=== PATIENT | female | born 1950 | race Caucasian/White ===

== ENCOUNTER → 2016-11-10 | Outpatient (CLI) | payer MEDICARE, OTHER ==
[~2016-11-10] VITALS: Ht 165.1 cm; Wt 90.7 kg
[~2016-11-10] MED LIST: ACET65TA OR; ACTO30TA OR; ALDA25TA2 PO; AMLO10TA PO; AMLO5TAB2 PO; ASPI81TAEC PO; ATOR40TA PO; GLIM1TAB OR; HUMA75VL SC; INSUHUMDS SC; JANU100T PO; K-TA10TA2 PO; LEVO100T5 PO; LIDOCAINE 2% INJ 100 MG/5 ML SDV (FOR ANES.) As Ordered ONE; LISI20TA5 OR; LISI40TAB PO; MACR100C3 PO; MAG400TA PO; MULT1TAB18 PO; NS 1,000 ML IV SCH; NYST10PW TOP; OMEP10CASR PO; PRIL20CA OR; PROPOFOL 200 MG/20 ML VIAL As Ordered ONE; SERT-141 PO; TYLE325T5 PO; VALS1TAB46 PO; VYTO10TA5 OR; [UNRECOGNIZED DRUG - CODE] PO; [UNRECOGNIZED DRUG - OTHER] PO
--- NOTE | 2016-11-10 11:05 | ROOR ---
Patient Name: Sara Torre Procedure Date: 11/10/2016 10:40 AM Date of : 1950 Age: 66 Room: [facility] Gender: Female Note Status: Finalized Procedure: Colonoscopy Indications: High risk colon cancer surveillance: Personal history of colonic polyps, Last colonoscopy: July 2013, Family history (father) of colon cancer >60. Providers: Daquan PIKE MD Referring MD: Nataly Jernigan DO Requesting Provider: Medicines: Monitored Anesthesia Care Complications: No immediate complications. Procedure: Pre-Anesthesia Assessment: - The heart rate, respiratory rate, oxygen saturations, blood pressure, adequacy of pulmonary ventilation, and response to care were monitored throughout the procedure. The Colonoscope was introduced through the anus and advanced to the cecum, identified by appendiceal orifice and ileocecal valve. The colonoscopy was performed without difficulty. The patient tolerated the procedure well. The quality of the bowel preparation was fair. Findings: The perianal and digital rectal examinations were normal. (EXAM: Complete, PREP: Fair/Adequate) Two sessile polyps were found in the sigmoid colon. The polyps were diminutive in size. These polyps were removed with a cold snare. Resection and retrieval were complete. Small Internal Hemorrhoids. A tattoo was seen in the distal rectum. The tattoo site appeared normal. Impression: - Preparation of the colon was fair. - Two diminutive polyps in the sigmoid colon, removed with a cold snare. Resected and retrieved. - Small Internal Hemorrhoids. Moderate external hemorrhopids. - A tattoo was seen in the distal rectum. The tattoo site appeared normal. Recommendation: - Repeat colonoscopy in 5 years for surveillance. Daquan Pike MD Daquan PIKE MD 11/10/2016 11:05:32 AM This report has been signed electronically. Number of Addenda: 0 Note Initiated On: 11/10/2016 10:40 AM Estimated Blood Loss: Estimated blood loss: none.
[2016-11-10 11:25] VITALS: BP 160/85
== END ==
LOC: M OPP 08:25
PROVIDERS: ATTEND Internal Medicine Gastroenterology
DX: Z12.11 Encounter for screening for malignant neoplasm of colon (principal); Z86.010 Personal history of colon polyps; Z80.0 Family history of malignant neoplasm of digestive organs; D12.5 Benign neoplasm of sigmoid colon; K64.9 Unspecified hemorrhoids; I10 Essential (primary) hypertension; E11.9 Type 2 diabetes mellitus without complications; M19.90 Unspecified osteoarthritis, unspecified site; R01.1 Cardiac murmur, unspecified; Z79.82 Long term (current) use of aspirin; Z79.899 Other long term (current) drug therapy; Z88.0 Allergy status to penicillin; Z88.6 Allergy status to analgesic agent

== ENCOUNTER → 2017-11-23 | Outpatient (CLI) | payer MEDICARE, OTHER ==
[2017-11-23 11:21] LABS: HEMATOCRIT 40.4 % (36.0-47.0); HEMOGLOBIN 13.4 g/dl (12.0-16.0); MEAN CORPUSCULAR HEMOGLOBIN 31.2 pg (27.0-33.0); MEAN CORPUSCULAR HGB CONC 33.2 g/dl (32.0-36.5); MEAN CORPUSCULAR VOLUME 94.2 fl (80.0-96.0); PLATELET COUNT, AUTOMATED 306 10^3/uL (150-450); RED BLOOD COUNT 4.29 10^6/uL (4.00-5.40); RED CELL DISTRIBUTION WIDTH 13.1 % (11.5-14.5)
[2017-11-23 11:22] LABS: APPEARANCE, URINE HAZY (CLEAR); BACTERIA, URINE AUTO 1+ (NEGATIVE); BILIRUBIN, URINE AUTO NEGATIVE (NEGATIVE); BLOOD, URINE BLOOD NEGATIVE (NEGATIVE); COLOR, URINE YELLOW (YELLOW); GLUCOSE, URINE (UA) AUTO 3+ mg/dL (NEGATIVE); KETONE, URINE AUTO NEGATIVE (NEGATIVE); LEUKOCYTE ESTERASE, URINE AUTO 3+ (NEGATIVE); MUCUS, URINE SMALL (NEGATIVE); NITRITE, URINE AUTO NEGATIVE (NEGATIVE); PROTEIN, URINE AUTO NEGATIVE (NEGATIVE); RBC, URINE AUTO 14 /HPF (0-3); SPECIFIC GRAVITY URINE AUTO 1.021 (1.002-1.035); SQUAMOUS EPITHELIAL CELL UR AU 3 /HPF (0-6); UROBILINOGEN, URINE AUTO 0.2 mg/dL (0.0-2.0); WBC, URINE AUTO 43 /HPF (0-3)
[2017-11-23 11:38] LABS: INR 1.05; PROTHROMBIN TIME 13.8 SECONDS (12.4-14.5)
[2017-11-23 11:42] LABS: ALBUMIN 4.1 GM/DL (3.2-5.2); ALBUMIN/GLOBULIN RATIO 1.21 (1.00-1.93); ALKALINE PHOSPHATASE 115 U/L (45-117); ALT/SGPT 24 U/L (12-78); ANION GAP 6 MEQ/L (8-16); AST/SGOT 13 U/L (7-37); BILIRUBIN,TOTAL 0.7 MG/DL (0.2-1.0); BLOOD UREA NITROGEN 16 MG/DL (7-18); CARBON DIOXIDE LEVEL 31 MEQ/L (21-32); CHLORIDE LEVEL 104 MEQ/L (98-107); CREATININE FOR GFR 0.82 MG/DL (0.55-1.30); GLOMERULAR FILTRATION RATE > 60.0 (>45); GLUCOSE, FASTING 260 MG/DL (70-100); POTASSIUM SERUM 4.7 MEQ/L (3.5-5.1); SODIUM LEVEL 141 MEQ/L (136-145); TOTAL PROTEIN 7.5 GM/DL (6.4-8.2)
[2017-11-23 11:56] LABS: ERYTHROCYTE SEDIMENTATION RATE 34 mm/hr (0-30)
== END ==
LOC: M ADMPAT 09:44
DX: Z01.818 Encounter for other preprocedural examination (principal); M16.11 Unilateral primary osteoarthritis, right hip; I10 Essential (primary) hypertension; E78.00 Pure hypercholesterolemia, unspecified; K21.9 Gastro-esophageal reflux disease without esophagitis; E03.9 Hypothyroidism, unspecified; Z79.899 Other long term (current) drug therapy; Z79.01 Long term (current) use of anticoagulants
CPT/HCPCS: 71046

== ENCOUNTER → 2017-11-27 | Outpatient (REF) | payer MEDICARE, OTHER ==
[2017-11-27 18:27] LABS: APPEARANCE, URINE HAZY (CLEAR); BACTERIA, URINE AUTO NEGATIVE (NEGATIVE); BILIRUBIN, URINE AUTO NEGATIVE (NEGATIVE); BLOOD, URINE BLOOD NEGATIVE (NEGATIVE); COLOR, URINE YELLOW (YELLOW); GLUCOSE, URINE (UA) AUTO 3+ mg/dL (NEGATIVE); KETONE, URINE AUTO NEGATIVE (NEGATIVE); LEUKOCYTE ESTERASE, URINE AUTO 1+ (NEGATIVE); MUCUS, URINE SMALL (NEGATIVE); NITRITE, URINE AUTO NEGATIVE (NEGATIVE); PROTEIN, URINE AUTO NEGATIVE (NEGATIVE); RBC, URINE AUTO 3 /HPF (0-3); SPECIFIC GRAVITY URINE AUTO 1.022 (1.002-1.035); SQUAMOUS EPITHELIAL CELL UR AU 1 /HPF (0-6); UROBILINOGEN, URINE AUTO 0.2 mg/dL (0.0-2.0); WBC, URINE AUTO 2 /HPF (0-3)
== END ==
LOC: M LAB REF 16:33
DX: N39.0 Urinary tract infection, site not specified (principal)
CPT/HCPCS: 81001

== ENCOUNTER → 2018-01-01 | Outpatient (REF) | payer MEDICARE, OTHER ==
[2018-01-01 11:57] LABS: INR 1.55
== END ==
LOC: M LABDRAW1 10:45
DX: Z79.01 Long term (current) use of anticoagulants (principal)
CPT/HCPCS: 85610

== ENCOUNTER → 2018-01-04 | Outpatient (REF) | payer MEDICARE, OTHER ==
[2018-01-04 14:37] LABS: INR 1.89; PROTHROMBIN TIME 22.3 SECONDS (12.4-14.5)
== END ==
LOC: M LABDRAW1 11:42
DX: Z79.01 Long term (current) use of anticoagulants (principal); Z47.89 Encounter for other orthopedic aftercare
CPT/HCPCS: 85610

== ENCOUNTER → 2018-01-07 | Outpatient (REF) | payer MEDICARE, OTHER ==
[2018-01-07 12:58] LABS: INR 1.74; PROTHROMBIN TIME 20.9 SECONDS (12.4-14.5)
== END ==
LOC: M LAB REF 12:29
DX: Z47.89 Encounter for other orthopedic aftercare (principal); Z79.01 Long term (current) use of anticoagulants
CPT/HCPCS: 85610

== ENCOUNTER → 2018-01-11 | Outpatient (REF) | payer MEDICARE, OTHER ==
[2018-01-11 12:15] LABS: INR 1.64; PROTHROMBIN TIME 19.9 SECONDS (12.4-14.5)
== END ==
LOC: M SHH 11:46
DX: Z79.01 Long term (current) use of anticoagulants (principal); Z47.89 Encounter for other orthopedic aftercare
CPT/HCPCS: 85610

== ENCOUNTER 2018-06-03 09:01 | Day surgery (SDC) | payer MEDICARE, OTHER ==
[~2018-06-03 09:01] MED LIST changes: -ACET65TA OR; -ACTO30TA OR; -ALDA25TA2 PO; -AMLO10TA PO; -AMLO5TAB2 PO; -ASPI81TAEC PO; -ATOR40TA PO; -GLIM1TAB OR; -HUMA75VL SC; -INSUHUMDS SC; -JANU100T PO; -K-TA10TA2 PO; -LEVO100T5 PO; -LIDOCAINE 2% INJ 100 MG/5 ML SDV (FOR ANES.) As Ordered ONE; -LISI20TA5 OR; -LISI40TAB PO; -MACR100C3 PO; -MAG400TA PO; +MIDAZOLAM INJ 2 MG/2 ML VIAL (J2250) As Ordered; -MULT1TAB18 PO; -NS 1,000 ML IV SCH; -NYST10PW TOP; -OMEP10CASR PO; +ONDANSETRON 4MG/2ML VIAL (J2405) As Ordered; -PRIL20CA OR; -PROPOFOL 200 MG/20 ML VIAL As Ordered ONE; -SERT-141 PO; -TYLE325T5 PO; -VALS1TAB46 PO; -VYTO10TA5 OR; -[UNRECOGNIZED DRUG - CODE] PO; -[UNRECOGNIZED DRUG - OTHER] PO; +fentaNYL 100 MCG/2 ML INJECTION (J3010) As Ordered
[2018-06-03] MEDS: PROPARACAINE 0.5% OPHTH SOL 15ML OS (09:55)
[2018-06-03] MEDS: OFLOXACIN 0.3 % (OCUFLOX) OPTH SOL 5ML OS (09:56)
[2018-06-03] MEDS: TROPICAMIDE 1% OPHTH SOLN 2ML OS (09:58)
[2018-06-03] MEDS: PHENYLEPHRINE 2.5% OPHTH SOL 2ML OS (10:00)
[2018-06-03 10:08] LABS: BEDSIDE GLUCOSE 198 MG/DL (80-115)
[2018-06-03] MEDS: POVIDONE-IODINE 5% OPHTH PREP SOL 30ML As Ordered (10:51)
[2018-06-03] MEDS: BALANCED SALT IRRIGATION SOLUTION 500ML BAG (FOR OR EYE MACHINE) As Ordered (10:56)
[2018-06-03] MEDS: DUOVISC (0.50ML VISCOAT/0.55ML PROVISC) OPHTH KIT As Ordered (11:00)
[2018-06-03] MEDS: LIDOCAINE 0.75%/EPINEPHRINE 0.025% IN BSS 1ML SYR INTRACAMERAL (OR ONLY) As Ordered (11:01)
== END 2018-06-03 11:52 | disposition home or self-care (01) ==
LOC: M SDC 09:01
DX: H25.12 Age-related nuclear cataract, left eye (principal); I10 Essential (primary) hypertension; E78.5 Hyperlipidemia, unspecified; R01.1 Cardiac murmur, unspecified; E10.9 Type 1 diabetes mellitus without complications; E03.9 Hypothyroidism, unspecified; K44.9 Diaphragmatic hernia without obstruction or gangrene; K21.9 Gastro-esophageal reflux disease without esophagitis; K63.5 Polyp of colon; M12.9 Arthropathy, unspecified; R21 Rash and other nonspecific skin eruption; R32 Unspecified urinary incontinence; Z88.0 Allergy status to penicillin; Z88.6 Allergy status to analgesic agent; Z91.013 Allergy to seafood; Z79.899 Other long term (current) drug therapy; Z79.4 Long term (current) use of insulin; Z96.641 Presence of right artificial hip joint; Z78.0 Asymptomatic menopausal state
CPT/HCPCS: 66984

== ENCOUNTER 2018-08-12 07:58 | Day surgery (SDC) | payer MEDICARE, OTHER ==
[~2018-08-12 07:58] MED LIST changes: -ONDANSETRON 4MG/2ML VIAL (J2405) As Ordered
[2018-08-12] MEDS: PHENYLEPHRINE 2.5% OPHTH SOL 2ML OD (09:15)
[2018-08-12] MEDS: TROPICAMIDE 1% OPHTH SOLN 2ML OD (09:15)
[2018-08-12] MEDS: PROPARACAINE 0.5% OPHTH SOL 15ML OD (09:15)
[2018-08-12] MEDS: OFLOXACIN 0.3 % (OCUFLOX) OPTH SOL 5ML OD (09:15)
[2018-08-12 09:41] LABS: BEDSIDE GLUCOSE 109 MG/DL (83-110)
[2018-08-12] MEDS: BALANCED SALT IRRIGATION SOLUTION 500ML BAG (FOR OR EYE MACHINE) As Ordered (10:29)
[2018-08-12] MEDS: POVIDONE-IODINE 5% OPHTH PREP SOL 30ML As Ordered (10:29)
[2018-08-12] MEDS: LIDOCAINE 0.75%/EPINEPHRINE 0.025% IN BSS 1ML SYR INTRACAMERAL (OR ONLY) As Ordered (10:29)
[2018-08-12] MEDS: DUOVISC (0.50ML VISCOAT/0.55ML PROVISC) OPHTH KIT As Ordered (10:29)
[2018-08-12] MEDS: CEFUROXIME 1MG/0.1ML INTRACAMERAL INJ As Ordered (10:30)
== END 2018-08-12 11:08 | disposition home or self-care (01) ==
LOC: M SDC 07:58
DX: H25.11 Age-related nuclear cataract, right eye (principal); Z88.0 Allergy status to penicillin; Z91.013 Allergy to seafood
CPT/HCPCS: 66984

== ENCOUNTER 2019-04-04 12:40 | Emergency (ER) | payer MEDICARE, OTHER ==
[~2019-04-04] VITALS: Ht 165.1 cm; Wt 103.2 kg
[~2019-04-04 12:40] MED LIST changes: +ACET65TA OR; +ACTO30TA OR; +ALDA25TA2 PO; +AMLO10TA PO; +AMLO5TAB6 PO; +ASPI81TAEC PO; +ATOR40TA75 PO; +COUM2.5T17 PO; +GLIM1TAB OR; +HUMA75VL SC; +INSUHUMDS SC; +JANU100T PO; +K-TA10TA2 PO; +LEVO100T5 PO; +LISI20TA5 OR; +LISI40TA52 PO; +LOSA25TA14 PO; +MACR100C43 PO; +MAG400TA PO; +MAGN400C2 PO; -MIDAZOLAM INJ 2 MG/2 ML VIAL (J2250) As Ordered; +MULT1TAB18 PO; +NYST-15 TOP; +OMEP10CASR PO; +PERC5TAB12 PO; +PRIL20CA OR; +SERT-141 PO; +TYLE1TAB5 PO; +TYLE325T5 PO; +VALS1TAB66 PO; +VYTO10TA5 OR; +[UNRECOGNIZED DRUG - CODE] PO; +[UNRECOGNIZED DRUG - OTHER] PO; -fentaNYL 100 MCG/2 ML INJECTION (J3010) As Ordered
[2019-04-04] MEDS ORDERED: FARX1TAB3 PO (12:58)
[2019-04-04] MEDS ORDERED: ASPI81TA85 PO (12:58)
[2019-04-04] MEDS ORDERED: CELE1CAP4 PO (12:59)
[2019-04-04] MEDS ORDERED: methylPREDNISolone INJ 125 MG/2 ML VIAL (J2930) As Ordered ONE (13:26)
[2019-04-04] MEDS ORDERED: diphenhydrAMINE INJ 50MG/ML VIAL (J1200) As Ordered ONE (13:26)
[2019-04-04] MEDS ORDERED: diphenhydrAMINE INJ 50MG/ML VIAL (J1200) IV ONE (13:30)
[2019-04-04] MEDS ORDERED: FAMOTIDINE IV BAG 20 MG in APPROPRIATE DILUENT 1 EA IV ONE (13:30)
[2019-04-04] MEDS ORDERED: methylPREDNISolone INJ 125 MG/2 ML VIAL (J2930) IV ONE (13:30)
[2019-04-04] MEDS ORDERED: PRED20TA PO (16:19)
[2019-04-04] MEDS ORDERED: BENA25CA4 PO (16:19)
[2019-04-04 16:30] VITALS: BP 149/70
== END 2019-04-04 16:44 | disposition home or self-care (01) ==
LOC: M ED 12:40
DX: R22.0 Localized swelling, mass and lump, head (principal); T78.3XXA Angioneurotic edema, initial encounter; X58.XXXA Exposure to other specified factors, initial encounter; Y92.89 Other specified places as the place of occurrence of the external cause; E11.9 Type 2 diabetes mellitus without complications; I10 Essential (primary) hypertension; E07.9 Disorder of thyroid, unspecified; K21.9 Gastro-esophageal reflux disease without esophagitis; Z79.899 Other long term (current) drug therapy; Z79.890 Hormone replacement therapy; Z79.82 Long term (current) use of aspirin; Z79.4 Long term (current) use of insulin; Z88.0 Allergy status to penicillin; Z88.8 Allergy status to other drugs, medicaments and biological substances; Z91.018 Allergy to other foods
CPT/HCPCS: 96374; 96375; 99284; J1200; J2930

== ENCOUNTER → 2019-04-07 | Outpatient (REF) | payer MEDICARE, OTHER ==
[~2019-04-07] MED LIST changes: +ASPI81TA85 PO; +BENA25CA4 PO; +CELE1CAP4 PO; +FARX1TAB3 PO; +PRED20TA PO
[2019-04-07 12:58] LABS: INR 1.11
[2019-04-07 12:59] LABS: PARTIAL THROMBOPLASTIN TIME 30.5 SECONDS (25.0-38.4)
== END ==
LOC: M LABDRAW1 10:42
PROVIDERS: ATTEND Physician Assistant
DX: Z01.812 Encounter for preprocedural laboratory examination (principal); Z79.82 Long term (current) use of aspirin; Z79.899 Other long term (current) drug therapy

== ENCOUNTER → 2019-04-08 | Outpatient (REF) | payer MEDICARE, OTHER ==
[2019-04-08 17:19] LABS: COMPLEMENT C4 27 MG/DL (10-40); RHEUMATOID FACTOR QUANT < 10.0 IU/ML (<15.0)
== END ==
LOC: M LABDRAW1 14:47
PROVIDERS: ATTEND Allergy & Immunology Allergy
DX: T78.3XXA Angioneurotic edema, initial encounter (principal)

== ENCOUNTER → 2019-07-22 | Outpatient (CLI) | payer MEDICARE, OTHER ==
--- NOTE | 2019-07-22 12:36 | REP ---
Low-dose lung screening CT of the chest: The study is performed without IV contrast. The images are presented at lung windowing only. There are no comparisons. There is a small subpleural 16 mm ground-glass density anteriorly in the left upper lobe on image 39. This is a category II lesion. There are no other nodules or masses. There are no infiltrates or pleural effusions. Impression: Category II low-dose lung screening CT of the chest. The probability of malignancy is less than 1%. Depending on risk factors consider annual follow-up low-dose lung screening chest CT. Electronically Signed by Gautam Coe MD 07/22/2019 12:28 P
== END ==
LOC: M RAD 10:06
PROVIDERS: ATTEND Student in an Organized Health Care Education/Training Program
DX: Z12.2 Encounter for screening for malignant neoplasm of respiratory organs (principal); Z87.891 Personal history of nicotine dependence

== ENCOUNTER → 2019-09-28 | Outpatient (CLI) | payer MEDICARE, OTHER ==
[2019-09-28 13:34] LABS: PLATELET COUNT, AUTOMATED 265 10^3/uL (150-450)
[2019-09-28 13:48] LABS: INR 1.06; PROTHROMBIN TIME 13.5 SECONDS (11.8-14.0)
[2019-09-28 13:49] LABS: PARTIAL THROMBOPLASTIN TIME 33.5 SECONDS (25.0-38.4)
== END ==
LOC: M PLALAB 09:57
PROVIDERS: ATTEND Student in an Organized Health Care Education/Training Program
DX: Z01.812 Encounter for preprocedural laboratory examination (principal); M53.3 Sacrococcygeal disorders, not elsewhere classified

== ENCOUNTER → 2019-09-28 | Outpatient (CLI) | payer MEDICARE, OTHER ==
--- NOTE | 2019-09-28 11:36 | REPMRS ---
Patient History The patient states she has not had a clinical breast exam in over a year. Family history of breast cancer at age 50 or over in mother, colorectal cancer at age 50 or over in father. Benign stereotatic breast biopsy of the right breast, November 24, 2011. Digital Woman Screen Mammo: September 28, 2019 - Exam #: [id number] Bilateral CC and MLO view(s) were taken. Technologist: Tamanna Swanson, Technologist Prior study comparison: January 31, 2015, bilateral digital mammo screening bilat, performed at [facility]. October 06, 2011, bilateral digital mammo screening bilat, performed at [facility]. FINDINGS: There are scattered fibroglandular densities. There has been no change in the appearance of the mammogram from the prior studies. There is a mild amount of scattered fibroglandular density which is fairly symmetric. There is no interval development of dominant mass, architectural distortion, or grouped microcalcification suggestive of malignancy. 3-D tomosynthesis shows no additional findings. Assessment: BI-RADS/ACR category 1 mammogram. Negative Mammogram. Recommendation Routine screening mammogram of both breasts in 1 year (for women over age 40). This patient's Lifetime Breast Cancer Risk is estimated at 14.4 %. This mammogram was interpreted with the aid of an FDA-approved computer-aided dectection system. Electronically Signed By: Warren Smith MD 09/28/19 [id number]
== END ==
LOC: M WHC 09:27
PROVIDERS: ATTEND Student in an Organized Health Care Education/Training Program
DX: Z01.812 Encounter for preprocedural laboratory examination (principal); Z12.31 Encounter for screening mammogram for malignant neoplasm of breast; Z80.3 Family history of malignant neoplasm of breast; Z80.0 Family history of malignant neoplasm of digestive organs; Z86.018 Personal history of other benign neoplasm; M53.3 Sacrococcygeal disorders, not elsewhere classified

== ENCOUNTER → 2019-11-15 | Outpatient (REF) | payer MEDICARE, OTHER ==
[2019-11-15 14:25] LABS: APPEARANCE, URINE CLEAR (CLEAR); BACTERIA, URINE AUTO NEGATIVE (NEGATIVE); BILIRUBIN, URINE AUTO NEGATIVE (NEGATIVE); BLOOD, URINE BLOOD NEGATIVE (NEGATIVE); COLOR, URINE YELLOW (YELLOW); GLUCOSE, URINE (UA) AUTO 3+ mg/dL (NEGATIVE); KETONE, URINE AUTO NEGATIVE (NEGATIVE); LEUKOCYTE ESTERASE, URINE AUTO NEGATIVE (NEGATIVE); MUCUS, URINE SMALL (NEGATIVE); NITRITE, URINE AUTO NEGATIVE (NEGATIVE); PROTEIN, URINE AUTO NEGATIVE (NEGATIVE); RBC, URINE AUTO 0 /HPF (0-3); SPECIFIC GRAVITY URINE AUTO 1.032 (1.002-1.035); SQUAMOUS EPITHELIAL CELL UR AU 0 /HPF (0-6); UROBILINOGEN, URINE AUTO 0.2 mg/dL (0.0-2.0); WBC, URINE AUTO 0 /HPF (0-3)
== END ==
LOC: M SFHCWAGY 12:51
PROVIDERS: ATTEND Obstetrics & Gynecology
DX: N39.41 Urge incontinence (principal); L90.0 Lichen sclerosus et atrophicus
CPT/HCPCS: 81001; 87086; G0463

== ENCOUNTER → 2021-02-13 | Outpatient (REF) | payer MEDICARE, OTHER ==
[~2021-02-13] MED LIST changes: +AMLO1TAB24 PO; -AMLO5TAB6 PO; +ASPI-569 PO; -ASPI81TA85 PO; +ASPI81TA86 PO; -ASPI81TAEC PO; -MAG400TA PO; +MAGN400T35 PO
[2021-02-13 16:48] LABS: PLATELET COUNT, AUTOMATED 260 10^3/uL (150-450)
[2021-02-13 16:58] LABS: INR 0.98; PROTHROMBIN TIME 13.2 SECONDS (12.5-14.3)
[2021-02-13 16:59] LABS: PARTIAL THROMBOPLASTIN TIME 31.6 SECONDS (24.2-38.5)
[2021-02-13 17:09] LABS: ERYTHROCYTE SEDIMENTATION RATE 28 mm/hr (0-30)
== END ==
LOC: M PLALAB 16:43
PROVIDERS: ATTEND Physical Medicine & Rehabilitation
DX: M51.36 Other intervertebral disc degeneration, lumbar region (principal); Z79.01 Long term (current) use of anticoagulants

== ENCOUNTER → 2021-03-19 | Outpatient (REF) | payer MEDICARE, OTHER | LOC: M SFHCPLAZ 12:11 | PROVIDERS: ATTEND Family Medicine | DX: E03.9 Hypothyroidism, unspecified (principal); E11.9 Type 2 diabetes mellitus without complications; I11.9 Hypertensive heart disease without heart failure ==

== ENCOUNTER → 2021-03-20 | Outpatient (CLI) | payer MEDICARE, OTHER ==
[2021-03-20 14:15] LABS: HEMOGLOBIN A1c 7.9 %
[2021-03-20 14:20] LABS: ALBUMIN 3.9 GM/DL (3.2-5.2); ALT/SGPT 27 U/L (12-78); BILIRUBIN,TOTAL 1.2 MG/DL (0.2-1.0); BLOOD UREA NITROGEN 14 MG/DL (7-18); CALCIUM LEVEL 8.8 MG/DL (8.8-10.2); CARBON DIOXIDE LEVEL 28 MEQ/L (21-32); CHLORIDE LEVEL 105 MEQ/L (98-107); CHOLESTEROL LEVEL 140 MG/DL (<200); CHOLESTEROL RISK RATIO 3.589 (<5); CREATININE FOR GFR 0.86 MG/DL (0.55-1.30); GLOMERULAR FILTRATION RATE > 60.0 (>39); GLUCOSE, FASTING 242 MG/DL (70-100); HDL CHOLESTEROL 39 MG/DL (>40); LDL CHOLESTEROL 67 MG/DL (<100); NON-HDL-C 101 MG/DL; POTASSIUM SERUM 4.2 MEQ/L (3.5-5.1); SODIUM LEVEL 139 MEQ/L (136-145); TOTAL PROTEIN 7.2 GM/DL (6.4-8.2); TRIGLYCERIDES LEVEL 170 MG/DL (<150)
[2021-03-20 14:39] LABS: CREATININE, URINE 69.8 MG/DL; MALB URINE SIEMENS 15.3 MG/L; MAU/CREAT RATIO 21.9 MCG/MG (0.0-30.0)
== END ==
LOC: M PLALAB 09:43
PROVIDERS: ATTEND Student in an Organized Health Care Education/Training Program
DX: E11.9 Type 2 diabetes mellitus without complications (principal); E03.9 Hypothyroidism, unspecified; I11.9 Hypertensive heart disease without heart failure

== ENCOUNTER → 2021-05-03 | Outpatient (CLI) | payer MEDICARE, OTHER ==
--- NOTE | 2021-05-03 15:43 | REPVR ---
PROCEDURE INFORMATION: Exam: MR Lumbar Spine Without Contrast Exam date and time: 05/03/2021 2:24 PM Age: 70 years old Clinical indication: Low back pain; Additional info: Disc degeneration TECHNIQUE: Imaging protocol: Multiplanar magnetic resonance images of the lumbar spine without intravenous contrast. COMPARISON: [place] Hip, Ap,Lat 12/15/2017 9:31 AM FINDINGS: Vertebrae: There is mild degenerative anterolisthesis of L3 on L4 and L4 on L5. Otherwise,The lumbar vertebral bodies are normal in height,signal intensity and alignment.No acute fracture or dislocation is seen. Spinal epidural space: There is no evidence of epidural masses or hemorrhage. Spinal cord: The conus medullaris is normal. The cauda equina nerve roots demonstrate no crowding or displacement. T11-T12:Markedly reduced in height and T2 signal indicating degeneration.Small Schmorl's nodes. Small diffuse posterior herniation.There is no evidence of spinal canal narrowing.There is mild bilateral foraminal stenosis. T12-L1:Moderately reduced in height and T2 signal indicating degeneration. Small Schmorl's nodes. Small diffuse posterior herniation.There is no evidence of spinal canal narrowing.There is mild bilateral foraminal stenosis. L1-L2: There is no significant degenerative disc herniation.The spinal canal and neural foramina are patent and without significant stenosis. L2-L3: There is no significant degenerative disc herniation.The spinal canal and neural foramina are patent and without significant stenosis. L3-L4: Mildly reduced in height and T2 signal indicating degeneration. Small diffuse posterior herniation. Severe facet arthropathy.There is thickening of the ligamentum flavum.There is moderate spinal canal stenosis, with an AP canal dimension of 8 mm. There is moderate bilateral foraminal stenosis. L4-L5: Mildly reduced in height and T2 signal indicating degeneration. Small diffuse posterior herniation. Severe facet arthropathy.There is thickening of the ligamentum flavum.There is mild spinal canal narrowing, with an AP canal dimension of 10 mm. Moderate left and severe right lateral recess narrowing. Mild left and moderate right foraminal stenosis. L5-S1: Markedly reduced in height and T2 signal indicating degeneration. Mild degenerative endplate changes. No disc herniation is seen. Moderate facet arthropathy.There is no evidence of spinal canal narrowing.There is moderate bilateral foraminal stenosis. Soft tissues: The prevertebral soft tissues appear normal. IMPRESSION: MRI of the lumbar spine reveals multilevel degenerative spondylitic changes and degenerative disc disease as described above. Electronically signed by: Festus Mathis On 05/03/2021 15:43:21 PM
--- NOTE | 2021-05-03 15:46 | REPVR ---
PROCEDURE INFORMATION: Exam: MR Pelvis Without Contrast, Sacrum Exam date and time: 05/03/2021 3:09 PM Age: 70 years old Clinical indication: Pain; Other: Lbp; Additional info: Disc degeneration TECHNIQUE: Imaging protocol: Magnetic resonance images of the pelvis without intravenous contrast. Exam focused on the sacrum. COMPARISON: MRI-Spine, L.S. without con 05/03/2021 1:57 PM FINDINGS: Stomach and bowel: There is marked fecal impaction noted in the rectosigmoid. Fecal disimpaction is recommended. Intraperitoneal space: There is no evidence of free intraperitoneal fluid. Bones/joints: Bone marrow signal intensity of the visualized osseous structures is unremarkable. No acute fracture or dislocation is seen. There are mild degenerative osteo-arthritic changes in bilateral sacroiliac joints with joint space narrowing and osteophyte formation. Metallic inhomogeneity artifact from right hip arthroplasty is slightly limits evaluation in this region. Soft tissues: Unremarkable. Other findings: The presacral soft tissues appear normal. IMPRESSION: 1. Bone marrow signal intensity of the visualized osseous structures is unremarkable. No acute fracture or dislocation is seen. 2. There are mild degenerative osteo-arthritic changes in bilateral sacroiliac joints with joint space narrowing and osteophyte formation. 3. There is marked fecal impaction noted in the rectosigmoid. Fecal disimpaction is recommended. Electronically signed by: Festus Mathis On 05/03/2021 15:46:00 PM
== END ==
LOC: M PLAIMG 13:19
PROVIDERS: ATTEND Physician Assistant
DX: M51.36 Other intervertebral disc degeneration, lumbar region (principal); M46.1 Sacroiliitis, not elsewhere classified; M25.78 Osteophyte, vertebrae; K59.00 Constipation, unspecified; M53.3 Sacrococcygeal disorders, not elsewhere classified

== ENCOUNTER 2021-07-29 07:16 | Emergency (ER) | payer OTHER, MEDICARE ==
[~2021-07-29] VITALS: Ht 165.1 cm; Wt 100.7 kg
--- OUTSIDE RECORDS SUMMARY | 2021-07-29 07:26 | CCD | Continuity of Care Document ---
Author Author Sara ALFONSO MD Organization Unknown Address [address] [place] [address], [address] [place] [address] Phone [phone] Care Team Providers Care Rod Straightener Name Role Phone Nataly Jernigan DO AUTM [phone] Patrick Hernandez DO AUTM [phone] Problems Active Problems Provider Date Osteoarthritis of knee Onset: 07/05/1999 Essential hypertension Onset: 02/13/2017 Pure hypercholesterolemia Onset: 017 Social History Type Date Description Comments Sex Unknown ETOH Use Denies alcohol use Tobacco Use Start: Unknown End: Unknown Patient is a former smoker Allergies and adverse reactions Active Allergies Criticality Reaction | Severity Comments Date Naproxen Unable to assess criticality 02/13/2017 Penicillin Unable to assess criticality 02/13/2017 Medications Active Medications SIG Qnty Indications Ordering Provide r Date Atorvastatin Calcium 40mg Tablets Nataly Jernigan DO Levocetirizine Dihydrochloride 5mg Tablets Unknown Hydroxyzine HCL 25mg Tablets Unknown Famotidine 20mg Tablets Unknown Tolterodine Tartrate ER 4mg Caps E R 24HR Praneeth Casanova DO Levocetirizine Dihydrochloride 5mg Tablets Ole Mckeon md Hydroxyzine HCL 25mg Tablets Take Two Tablets By Mouth Every Day AT Lunch Unknown Epinephrine 0.3mg/0. 3ML Solution Auto-Inject Inject Intramuscularly Once as Needed For Anaphylaxis Unknown Januvia 100mg Tablets Take One Tablet By Mouth Every Day Unknown BD Pen Needle/Short/Ultra-Fine/31G X 8mm 31G X 8 mm [facility] Nataly Jernigan, DO 00 Amlodipine Besylate 5mg Tablets Take One Tablet By Mouth Twice A Day Unknown Humalog Mix 75/25 Kwikpen (75-25)100Unit/ML Supn Inject 25 Units Under The Skin Two Times A Day Unknown Tolterodine Tartrate ER 2mg Caps E R 24HR Take One Capsule By Mouth Daily Unknown Potassium Chloride ER 10Meq Tablets ER Patrick Hernandez, DO Farxiga 5mg Tablets Patrick Hernandez, DO Bisoprolol Fumarate/Hydrochlorothiazide 10-6.25mg Tablets Take One Tablet By Mouth Every Day Unkn own Levothyroxine Sodium 100mcg Tablets Patrick Hernandez, DO Immunizations Description No Information Available Vital Signs Date Vital Result Comment 02/13/2021 1:12pm Body Temperature 97.1 F Height 65 inches 5'5" Weight 220.00 lb BMI (Body Mass Index) 36.6 kg/m2 12/03/2017 10:01am BP Systolic 140 mmHg BP Diastolic 80 mmHg Heart Rate 60 /min Body Temperature 95.6 F Height 64 inches 5'4" Weight 233.38 lb BMI (Body Mass Index) 40.1 kg/m2 Respiratory Rate 16 /min Results Test Acquired Date Facility Test Result H/L Range Note Laboratory test finding [facility] [address] [place] [address] (315)- - Platelet Count, Automated 260 10 Normal 150-450 C Reactive Protein Quantitativ < 0.30 mg/dL Normal 0.00-0.30 Erythrocyte Sedimentation Rate 28 mm/hr Normal 0-30 PT & Aptt 02/13/2021 [facility] [address] [place] [address] (315)- - Prothrombin Time 13.2 seconds Normal 12.5-14.3 Inr 0.98 Normal 1 Partial Thromboplastin Time 31.6 seconds Normal 24.2-38.5 1 THERAPUTIC HUMAN INR VALUES INDICATIONS NORMAL RANGES PROPHYLAXIS/TREATMENT OF: VENOUS THROMBOSIS 2.0-3.0 PULMONARY EMBOLISM 2.0-3.0 PREVENTION OF SYSTEMIC EMBOLISM FROM: TISSUE HEART VALVES 2.0-3.0 ACUTE MYOCARDIAL INFARCTION 2.0-3.0 VALVULAR HEART DISEASE 2.0-3.0 ATRIAL FIBRILLATION 2.0-3.0 MECHANICAL VALVES(HIGH RISK) 2.5-3.5 RECURRENT MYOCARDIAL INFARCTION 2.5-3.5 Procedures Date Code Description Status 06/28/2021 18489 Office/Outpatient Established Mo d MDM 30-39 Min Completed 06/28/2021 38625 Nerve Conduction 7-8 Studies Com pleted 06/28/2021 66852 Needle Electromyography,Complete Five Or More Muscles Studied Completed 05/29/2021 04616 Office/Outpatient Established Mo d MDM 30-39 Min Completed 04/11/2021 40284 Phone Evaluation/Management By Liam hurley 5-10 Mins Completed 03/25/2021 74447 Moderate Sedation Se rvices; Same Phys Intl 15 Mins; PT >= 5 Years Completed 03/25/2021 69364 Inj Sacroiliac JT Ar thrography &/Or Anesthetic/Steroid W/Guidance Completed 02/13/2021 21042 Office/Outpatient Established Mo d MDM 30-39 Min Completed Medical Devices Description No Information Available Encounters Type Date Location Provider Dx Diagnosis Office Visit 05/29/2021 2:30p [place] ELISABET Rodriguez M51.36 Other intervertebral disc degeneration, 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, lumbar region M46.1 Sacroiliitis, not elsewhere classified Z96.641 Presence of right artificial hip joint Office Visit 04/11/2021 2[place] M46.1 Sacroiliitis, not elsewhere classified M51.36 Other intervertebral disc de generation, 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, lumbar region Office Visit 02/13/2021 1:00p [place] Kaiden Alfonso MD M51.36 Other intervertebral disc degeneration, 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, lumbar region M43.16 Spondylolisthesis, lumbar re gion M48.061 Spinal stenosis, lumbar bronwyn on without neurogenic jcarlos Assessments Date Code Description Provider 06/28/2021 M51.36 Other intervertebral disc degene ration, lumbar region Kaiden Alfonso MD 06/28/2021 M51.37 Other intervertebral disc degene ration, lumbosacral region Kaiden Alfonso MD 06/28/2021 M47.896 Other spondylosis, lumbar region Kaiden Alfonso MD 06/28/2021 M47.897 Other spondylosis, lumbosacral r egion Kaiden Alfonso MD 06/28/2021 M51.26 Other intervertebral disc displa cement, lumbar region Kaiden Alfonso MD 06/28/2021 M48.061 Spinal stenosis, lum bar region without neurogenic claudication Kaiden Alfonso MD 06/28/2021 E11.9 Type 2 diabetes mellitus without complications Kaiden Alfonso MD 05/29/2021 M51.36 Other intervertebral disc degene ration, lumbar region ELISABET Rodriguez 05/29/2021 M47.816 Spondylosis without myelopathy o r radiculopathy, lumbar bronwyn Mayank Serrano, ELISABET 05/29/2021 M46.1 Sacroiliitis, not elsewhere ELISABET Viveros 05/29/2021 Z96.641 Presence of right artificial hip joint Mayank Serrano, ELISABET 04/11/2021 M46.1 Sacroiliitis, not elsewhere ELISABET Viveros 04/11/2021 M51.36 Other intervertebral disc degene ration, lumbar region ELISABET Rodriguez 04/11/2021 M47.816 Spondylosis without myelopathy o r radiculopathy, lumbar bronwyn ELISABET Rodriguez 03/25/2021 M46.1 Sacroiliitis, not elsewhere jayme Alfonso MD 02/13/2021 M51.36 Other intervertebral disc degene ration, lumbar region Kaiden Alfonso MD 02/13/2021 M47.816 Spondylosis without myelopathy o r radiculopathy, lumbar bronwyn Kaiden Alfonso MD 02/13/2021 M43.16 Spondylolisthesis, lumbar region Kaiden Alfonso MD 02/13/2021 M48.061 Spinal stenosis, lumbar region w ithout neurogenic claudicati Kaiden Alfonso MD Plan of Treatment Future Appointment(s):* 07/17/2021 2:45 pm - ELISABET Rodriguez at [place] 06/28/2021 - Kaiden Alfonso MD* M51.36 Other intervertebral disc degeneration, lumbar region* Follow up:* with [facility] for EMG results * M51.37 Other intervertebral disc degeneration, lumbosacral region * M47.896 Other spondylosis, lumbar region * M47.897 Other spondylosis, lumbosacral region * M51.26 Other intervertebral disc displacement, lumbar region * M48.061 Spinal stenosis, lumbar region without neurogenic claudication * E11.9 Type 2 diabetes mellitus without complications Functional Status Description No Information Available Mental Status Description No Information Available Referrals Refer to Dr Reason for Referral Status Appt Date Kaiden Alfonso MD EMG NO AUTH REQUIRED TO SCHEDULING NT Crea marty [address] [place] [address] [phone] Kaiden Alfonso MD MRI NO AUTH REQUIRED FOR MRI OF LUMBAR SPINE ([id number]) AND PELVIS ([id number]) TO DOC OCASIO Created [address] [place] [address] [phone] Kaiden Alfonso MD MRI NO AUTH REQUIRED PER HEA THER FOR MRI OF LUMBAR SPINE ([id number]) AND PELVIS ([id number]) TO DOC Gentile DG Created [address] [place] [address] [phone] Kaiden Alfonso MD [employer]S$[id number], AND [id number]) NO AUTH REQU IRED TO SURGERY NT Created [address] [place] [address] [phone] Kaiden Alfonso MD JIG[employer] INJ'S([id number], AND [id number]) NO AUTH REQU IRED TO SURGERY NT Created [address] [place], [place] [id number] [phone]
--- OUTSIDE RECORDS SUMMARY | 2021-07-29 07:26 | CCD | Continuity of Care Document ---
Author Author Sara SERRANO PA Organization Unknown Address [address] [place] [address], [address] [place] [address] Phone [phone] Care Team Providers Care Coating Mixer Tender Name Role Phone Nataly Jernigan DO AUTM [phone] Patrick Hernandez DO AUTM [phone] Problems Active Problems Provider Date Osteoarthritis of [...] ER 4mg Caps E R 24HR Praneeth Casanova, DO Levocetirizine Dihydrochloride 5mg Tablets Ole Mckeon md Hydroxyzine HCL 25mg Tablets Take Two Tablets By Mouth Every Day AT Lunch Unknown Epinephrine 0.3mg/0. 3ML Solution Auto-Inject Inject Intramuscularly Once as Needed For Anaphylaxis Unknown Januvia 100mg Tablets Take One Tablet By Mouth Every Day Unknown BD Pen Needle/Short/Ultra-Fine/31G X 8mm 31G X 8 mm Alec Nataly Jernigan, DO 00 Amlodipine Besylate 5mg [...] H/L Range Note Laboratory test finding [facility] [address] [place] [address] (315)- - Platelet Count, Automated 260 10 Normal 150-450 C Reactive Protein Quantitativ < 0.30 mg/dL Normal 0.00-0.30 Erythrocyte Sedimentation Rate 28 mm/hr Normal 0-30 PT & Aptt 02/13/2021 [facility] [address] [place] [address] (315)- - Prothrombin Time 13.2 seconds Normal [...] INFARCTION 2.5-3.5 Procedures Date Code Description Status 07/17/2021 69123 Office/Outpatient Established Hi gh MDM 40-54 Min Completed 06/28/2021 74601 Office/Outpatient Established Mo d MDM 30-39 Min Completed 06/28/2021 46835 Nerve Conduction 7-8 Studies Com pleted 06/28/2021 75811 Needle Electromyography,Complete Five Or More Muscles Studied Completed 05/29/2021 16409 Office/Outpatient Established Mo d MDM 30-39 Min Completed 04/11/2021 06914 Phone Evaluation/Management By Liam hurley 5-10 Mins Completed 03/25/2021 20298 Moderate Sedation Se rvices; Same Phys Intl 15 Mins; PT >= 5 Years Completed 03/25/2021 29540 Inj Sacroiliac JT Ar thrography &/Or Anesthetic/Steroid W/Guidance Completed 02/13/2021 33846 Office/Outpatient Established Mo d MDM 30-39 Min Completed Medical Devices Description No Information Available Encounters Type Date Location Provider Dx Diagnosis Office Visit 07/17/2021 2:45p [place] ELISABET Rodriguez M51.36 Other intervertebral disc degeneration, lumbar region M51.37 Other intervertebral disc de generation, lumbosacral region M47.896 Other spondylosis, lumbar re gion M47.897 Other spondylosis, lumbosacr al region M51.26 Other intervertebral disc di splacement, lumbar region M48.061 Spinal stenosis, lumbar bronwyn on without neurogenic jcarlos E11.9 Type 2 diabetes mellitus wit hout complications Office Visit 05/29/2021 2:30p [place] ELISABET Rodriguez M51.36 Other intervertebral disc degeneration, 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, lumbar region M46.1 Sacroiliitis, not elsewhere classified Z96.641 Presence of right artificial hip joint Office Visit 04/11/2021 2:20p [place] ELISABET Rodriguez M46.1 Sacroiliitis, not elsewhere classified M51.36 Other intervertebral disc de generation, 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, lumbar region Office Visit 02/13/2021 1:00p [place] Kaiden Boles MD M51.36 Other intervertebral disc degeneration, 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, lumbar region M43.16 Spondylolisthesis, lumbar re gion M48.061 Spinal stenosis, lumbar bronwyn on without neurogenic jcarlos Assessments Date Code Description Provider 07/17/2021 M51.36 Other intervertebral disc degene ration, lumbar region ELISABET Rodriguez 07/17/2021 M51.37 Other intervertebral disc degene ration, lumbosacral region ELISABET Rodriguez 07/17/2021 M47.896 Other spondylosis, lumbar region ELISABET Rodriguez 07/17/2021 M47.897 Other spondylosis, lumbosacral r egion ELISABET Rodriguez 07/17/2021 M51.26 Other intervertebral disc displa cement, lumbar region ELISABET Rodriguez 07/17/2021 M48.061 Spinal stenosis, lum bar region without neurogenic claudication ELISABET Rodriguez 07/17/2021 E11.9 Type 2 diabetes mellitus without complications ELISABET Rodriguez 06/28/2021 M51.36 Other intervertebral disc degene ration, lumbar region Kaiden Boles MD 06/28/2021 M51.37 Other intervertebral disc degene ration, lumbosacral region Kaiden Boles MD 06/28/2021 M47.896 Other spondylosis, lumbar region Kaiden Boles MD 06/28/2021 M47.897 Other spondylosis, lumbosacral r egion Kaiden Boles MD 06/28/2021 M51.26 Other intervertebral disc displa cement, lumbar region Kaiden Boles MD 06/28/2021 M48.061 Spinal stenosis, lum bar region without neurogenic claudication Kaiden Boles MD 06/28/2021 E11.9 Type 2 diabetes mellitus without complications Kaiden Boles MD 05/29/2021 M51.36 Other intervertebral disc degene ration, lumbar region Mayank Serrano, PA 05/29/2021 M47.816 Spondylosis without myelopathy o r radiculopathy, lumbar bronwyn Mayank Serrano, PA 05/29/2021 M46.1 Sacroiliitis, not elsewhere clas artem Serrano, ELISABET 05/29/2021 Z96.641 Presence of right artificial hip joint Mayank Serrano, ELISABET 04/11/2021 M46.1 Sacroiliitis, not elsewhere ELISABET Viveros 04/11/2021 M51.36 Other intervertebral disc degene ration, lumbar region Mayank Serrano, ELISABET 04/11/2021 M47.816 Spondylosis without myelopathy o r radiculopathy, lumbar bronwyn Mayank Serrano, PA 03/25/2021 M46.1 Sacroiliitis, not elsewhere mayurs artem Boles MD 02/13/2021 M51.36 Other intervertebral disc degene ration, lumbar region Kaiden Boles MD 02/13/2021 M47.816 Spondylosis without myelopathy o r radiculopathy, lumbar bronwyn Kaiden Boles MD 02/13/2021 M43.16 Spondylolisthesis, lumbar region Kaiden Boles MD 02/13/2021 M48.061 Spinal stenosis, lumbar region w ithout neurogenic claudicati Kaiden Boles MD Plan of Treatment 07/17/2021 - ELISABET Rodriguez* M51.36 Other intervertebral disc degeneration, lumbar region* New Orders:* [facility] Injections, Ordered: 07/17/21 * M51.37 Other intervertebral disc degeneration, lumbosacral [...] Reason for Referral Status Appt Date Kaiden Boles MD EMG NO AUTH REQUIRED TO SCHEDULING NT Crea marty [address] [place], [place] [address] [phone] Kaiden Boles MD MRI NO AUTH REQUIRED FOR MRI OF LUMBAR SPINE ([id number]) AND PELVIS ([id number]) TO DOC OCASIO Created [address] [place] [address] [phone] Kaiden Boles MD MRI NO AUTH REQUIRED PER HEA THER FOR MRI OF LUMBAR SPINE ([id number]) AND PELVIS ([id number]) TO DOC Gentile DG Created [address] [place] [id number] [phone] Kaiden Boles MD [employer] INJ[employer]S$[id number], AND [id number]) NO AUTH REQU IRED TO SURGERY NT Created [address] [place] [phone] Kaiden Boles MD JIGAR INJ'S([id number], AND [id number]) NO AUTH REQU IRED TO SURGERY NT Created [address] [place] [phone]
--- OUTSIDE RECORDS SUMMARY | 2021-07-29 07:26 | CCD ---
Author Author [facility] Organization [facility] Address Unknown Phone Unavailable Care Team Providers Care Strategic Consultant Name Role Phone Wily Castellon Unavailable PROBLEMS Type Condition ICD9-CM Code BTE98-NH Code Onset Dates Condition S tatus W/U Status Risk SNOMED Code Notes Problem Insomnia, unspecified type G47.00 Active confirmed 737714406 Problem Hypothyroidism, unspecified type E03.9 Active conf irmed 20221676 Problem Urge urinary incontinence N39.41 Active confirmed 13627203 Problem Lichen sclerosus et atrophicus L90.0 Active confir med 68053428 Problem Type 2 diabetes mellitus wit hout complication, unspecified whether care home insulin use E11.9 Active confirmed 235433092 Problem Hypertensive heart disease without heart failure I 11.9 Active confirmed 26256930 Problem Generalized anxiety disorder F41.1 Active confirme d 89298043 Problem 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 [address] [place] [address] Jun, Wily Castellon Hypertensive heart disease without heart failure I11.9 IMMUNIZATIONS Vaccine Route Administration Date Status Influenza 18 yrs & older Flublok IM Intramuscular Jul 04, 2019 Administered SOCIAL HISTORY Tobacco Use: Social History Observation Description Date Details (start date - stop date) Former Smoker Sex Assigned At : Social History Observation Description Sex Assigned At Unknown Education: Question Answer Notes Level of Education: College Audit Question Answer Notes Total Score: 0 Interpretation: Alcohol Education Language: Question Answer Notes Languages spoken: Kazakh Taoism: Question Answer Notes Taoism No baptist beliefs that would impact health care. Sexual Hx: Question Answer Notes Had sex in the last 12 months (vaginal, oral, or anal)? No Have you ever had an STD? No Drug and Alcohol Question Answer Notes Total Score: 0 Interpretation: No problems reported Tobacco Use: Question Answer Notes Are you a: former smoker How long has it been since you last smoked? > 10 years REASON FOR REFERRAL No Information VITAL SIGNS No information MEDICATIONS Medication SIG (Take, Route, Frequency, Duration) Notes Start Da te End Date Status Ramelteon 8 MG 1 tablet at bedtime as needed Orally Once a day for 30 days Jul, Not-Taking Centrum Silver - as directed Orally Active Aspirin Adult Low Dose 81 MG 1 tablet Orally Once a day for 30 day(s) Active PriLOSEC OTC 20 MG 1 tablet Orally Once a day for 30 day(s) Active Detrol LA 4 MG 1 capsule Orally Once a day for 90 days Nov, Not-Taking hydrOXYzine HCl 25 MG TAKE TWO TABLETS BY MOUTH AT LUNCH AND EVERY 4 6 HOURS NEEDED FOR FLARES OF ANGIODEMA Oral as directed for 30 days Active Sentry - as directed Orally Active predniSONE 20 MG 1 tablet Orally bid for 5 days Jun, 19 Active Potassium Chloride ER 10 MEQ 1 tablet with food Orally Twice a day Active Synthroid 100 MCG 1 tablet on an empty stomach in the morning Orally Once a day for 30 Active Bisoprolol-hydroCHLOROthiazide 10-6.25 MG 1 tablet Orally Once a da y for 90 Active Detrol LA 2 MG 1 capsule Orally Once a day for 30 day(s) 0 Nov, Active Clobetasol Propionate 0.05 % 1 application Externally Once a day for 14 day(s) Dispense monthly supply. Thank you. Nov, Act yoseph Farxiga 5 MG TAKE ONE TABLET BY MOUTH EVERY DAY Orally Once a day for 30 days Active Ambien CR 6.25 MG 1 tablet at bedtime as needed Orally Once a da y for 30 days 17 Eddi, 2020 Active Atorvastatin Calcium 40 MG 1 tablet Orally Once a day for 30 day(s) Active Zolpidem Tartrate 5 MG 1 tablet at bedtime Orally Once a day Not-Taking Detrol LA 2 MG TAKE ONE CAPSULE BY MOUTH EVERY DAY for 30 Not-Taking Amlodipine Besylate 5 MG 1 tablet Orally twice a day for 90 Active Januvia 100 MG 1 tablet Orally Once a day for 90 Active Tylenol 325 MG 500mg Orally every 4 hrs Active Aspirin 81 MG 1 tablet Orally Once a day for 30 day(s) double Not-Taking amLODIPine Besylate 5 MG 1 tablet Orally Once a day for 90 days Active Insulin Lispro Prot & Lispro (75-25) 100 UNIT/ML INJEC T 25 UNITS UNDER THE SKIN TWO TIMES A DAY for 30 Active Magnesium 400 MG 4 capsules Orally once a day Active Acetaminophen Extra Strength 500 MG 1 tablet as needed Orally every 6 hrs Unknown Famotidine 20 MG TAKE ONE TABLET BY MOUTH DIEGO RY EVENING Oral as directed for 30 days Active Levocetirizine Dihydrochloride 5 MG TAKE ONE TABLET BY MOUTH TWICE A DAY FOR ANGIOEDEMA Oral bid for 30 days Active PROCEDURES No Information RESULTS No Results REASON FOR VISIT refill MEDICAL (GENERAL) HISTORY Type Description Date Medical History Hypercholesterolemia Medical History Type 2 DM Medical History Essential HTN Medical History Heart Murmur Medical History Rheumatic Fever at 1 Medical History Hypothyroid Medical History arthritis Medical History degenerative disc disease Surgical History BL cataracts Surgical History right hip replacement (12/14/17) Surgical History left carpal tunnel Surgical History left hand nerve/tendon repair Hospitalization History sepsis 2016 Hospitalization History surgery Goals Section No Information Health Concerns No Information MEDICAL EQUIPMENT No Information MENTAL STATUS No Information FUNCTIONAL STATUS No Information ASSESSMENTS Encounter Date Diagnosis Assessment Notes Treatment Notes Treatm ent Clinical Notes Jun, Hypertensive heart disease without heart failure (ICD-10 - I11.9) PLAN OF TREATMENT Medication Medication Name Sig Start Date Stop Date Famotidine 20 MG TAKE ONE TABLET BY MOUTH DIEGO RY EVENING Oral as directed for 30 days Levocetirizine Dihydrochloride 5 MG TAKE ONE TABLET BY MOUTH TWICE A DAY FOR ANGIOEDEMA Oral bid for 30 days Farxiga 5 MG TAKE ONE TABLET BY MOUTH EVERY DAY Orally Once a day for 30 days Insulin Lispro Prot & Lispro (75-25) 100 UNIT/ML INJEC T 25 UNITS UNDER THE SKIN TWO TIMES A DAY for 30 Synthroid 100 MCG 1 tablet on an empty stomach in the morning Orally Once a day for 30 amLODIPine Besylate 5 MG 1 tablet Orally Once a day for 90 days hydrOXYzine HCl 25 MG TAKE TWO TABLETS BY MOUTH AT LUNCH AND EVERY 4 6 HOURS NEEDED FOR FLARES OF ANGIODEMA Oral as directed for 30 days Insurance Providers Payer Name Payer Address Payer Phone Insured Name Patient Relati onship to Insured Coverage Start Date Coverage End Date [facility] [address] [address] [facility] [id number] MORGAN LING [facility] MEDICARE Part A and B [address] [facility] [id number] [id number] [phone] MORGAN LING self
--- OUTSIDE RECORDS SUMMARY | 2021-07-29 07:26 | CCD | Continuity of Care Document ---
Author Author Sara SERRANO PA Organization Unknown Address [address] [place] [address], [address] [place] [address] Phone [phone] Care Team Providers Care Parts Sales Manager Name Role Phone Nataly Jernigan DO AUTM [phone] Patrick Hernandez DO AUTM [phone] Problems Active Problems Provider Date Osteoarthritis of [...] H/L Range Note Laboratory test finding 02/[facility] [address] [place] [address] (315)- - Platelet Count, Automated 260 10 Normal 150-450 C Reactive Protein Quantitativ < 0.30 mg/dL Normal 0.00-0.30 Erythrocyte Sedimentation Rate 28 mm/hr Normal 0-30 PT & Aptt 02/13/2021 [facility] [address] [place] [address] (315)- - Prothrombin Time 13.2 seconds Normal [...] 2.5-3.5 Procedures Date Code Description Status 07/17/2021 98102 Office/Outpatient Established Hi gh MDM 40-54 Min Completed 06/28/2021 44768 Office/Outpatient Established Mo d MDM 30-39 Min Completed 06/28/2021 66336 Nerve Conduction 7-8 Studies Com pleted 06/28/2021 68879 Needle Electromyography,Complete Five Or More Muscles Studied Completed 05/29/2021 74959 Office/Outpatient Established Mo d MDM 30-39 Min Completed 04/11/2021 22783 Phone Evaluation/Management By Liam hurley 5-10 Mins Completed 03/25/2021 91381 Moderate Sedation Se rvices; Same Phys Intl 15 Mins; PT >= 5 Years Completed 03/25/2021 25628 Inj Sacroiliac JT Ar thrography &/Or Anesthetic/Steroid W/Guidance Completed 02/13/2021 60237 Office/Outpatient Established Mo d MDM 30-39 Min Completed Medical Devices Description No Information Available Encounters Type Date Location Provider Dx Diagnosis Office Visit 07/17/2021 2:45p [place] ELISABET Rodriguez M51.36 Other intervertebral disc degeneration, lumbar region M51.37 Other intervertebral disc de generation, lumbosacral region M47.896 Other spondylosis, lumbar re gion M47.897 Other spondylosis, lumbosacr al region M51.26 Other intervertebral disc di splacement, lumbar region M48.061 Spinal stenosis, lumbar bronwyn on without neurogenic jcarlos E11.9 Type 2 diabetes mellitus wit hout complications Office Visit 05/29/2021 2:30p [place] ELISABET Rodriguez M51.36 Other intervertebral disc degeneration, 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, lumbar region M46.1 Sacroiliitis, not elsewhere classified Z96.641 Presence of right artificial hip joint Office Visit 04/11/2021 2:20p [place] ELISABET Rodriguez M46.1 Sacroiliitis, not elsewhere classified M51.36 Other intervertebral disc de generation, 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, lumbar region Office Visit 02/13/2021 1:00p [place] Kaiden Boles MD M51.36 Other intervertebral disc [...] AUTH REQUIRED TO SCHEDULING NT Crea marty [address] [place], [place] [address] [phone] Kaiden Boles MD MRI NO AUTH REQUIRED FOR MRI OF LUMBAR SPINE (53516) AND PELVIS ([id number]) TO DOC OCASIO Created [address] [place] [address] [phone] Kaiden Boles MD MRI NO AUTH REQUIRED PER HEA THER FOR MRI OF LUMBAR SPINE (68851) AND PELVIS (07621) TO DOC Gentile DG Created [address] [place] [address] [phone] Kaiden Boles MD [employer]$[id number], AND [id number]) NO AUTH REQU IRED TO SURGERY NT Created [address] [place] [address] [phone] Kaiden Boles MD [employer]IG[employer] INJ'S([id number], AND [id number]) NO AUTH REQU IRED TO SURGERY NT Created [address] [place] [address] [phone]
--- OUTSIDE RECORDS SUMMARY | 2021-07-29 07:26 | CCD | Continuity of Care Document ---
Author Author Sara ROTH M.D. Organization Unknown Address [address] [place] [address] Phone [phone] Care Team Providers Care Shipping Manager Name Role Phone Nataly Jernigan DO BRASWELL Unavailable Problems Description No Information Available Social History Type Date Description Comments Sex Unknown Tobacco Use Start: Unknown End: Patient is a former smoker 1.5 pks per day Smoking Status Reviewed: 07/03/21 Patient is a former smoker 1. 5 pks per day Allergies and adverse reactions Active Allergies Criticality Reaction | Severity Comments Date Penicillins Unable to assess criticality 10/09/2020 Naproxen Unable to assess criticality 10/09/2020 Medications Active Medications SIG Qnty Indications Ordering Provide r Date Famotidine 20mg Tablets 1 by mouth once daily in the evening 30tabs T78.3xxD Ole Roth M.D. 0 05/16/2021 Hydroxyzine HCL 25mg Tablets take two tablets (50 mg) by mouth once daily at lunch and every 4-6 hours as needed for flares of angioedema 120tabs T78.3xxD Ole Roth M.D. 0 05/16/2021 Levocetirizine Dihydrochloride 5mg Tablets take one tablet by mouth bid for angioedema 60tabs T78. 3xNathaly Roth M.D. 05/16/2021 Epinephrine 0.3mg/0. 3ML Solution Auto-Inject inject intramuscularly once as needed for anaphylaxis 1units T78.3xNathaly Roth M.D. 10/09/2020 Benadryl Allergy 25mg Tablets take 2 tablets every 4-6 hours if needed Unknown Prednisone 20mg Tablets take 2 tablets by mouth Unknown Prilosec OTC 20mg Tablets DR Take 1 tablet once daily Unknown Aspirin Low Dose 81mg Tablets DR Unknown BD Pen Needle/Short/Ultra-Fine/31G X 8mm 31G X 8 mm Misc Use as Directed Unknown Potassium Chloride ER 10Meq Tablets ER Unknown Bisoprolol Fumarate/Hydrochlorothiazide 10-6.25mg Tablets Take One Tablet By Mouth Every Day Unkn own Januvia 100mg Tablets Take One Tablet By Mouth Every Day Unknown Humalog Mix 75/25 Kwikpen (75-25)100Unit/ML Supn Unknown Atorvastatin Calcium 40mg Tablets Rere Nataly, DO Levothyroxine Sodium 100mcg Tablets Unknown Farxiga 5mg Tablets Unknown Tolterodine Tartrate ER 4mg Caps E R 24HR Unknown Amlodipine Besylate 5mg Tablets Unknown Immunizations Description No Information Available Vital Signs Date Vital Result Comment 07/03/2021 2:49pm Weight 222.38 lb Height 65 inches 5'5" Heart Rate 69 /min Respiratory Rate 18 /min BP Systolic 149 mmHg BP Diastolic 82 mmHg BMI (Body Mass Index) 37.0 kg/m2 05/16/2021 2:35pm Weight 219.00 lb Height 65 inches 5'5" Heart Rate 70 /min Respiratory Rate 16 /min BP Systolic 110 mmHg BP Diastolic 66 mmHg BMI (Body Mass Index) 36.4 kg/m2 Results Description No Information Available Procedures Date Code Description Status 07/03/2021 75971 Office/Outpatient Established Lo w MDM 20-29 Min Completed 05/16/2021 70929 Office/Outpatient Established Mo d MDM 30-39 Min Completed 05/16/2021 01805 Office/Outpatient Established Lo w MDM 20-29 Min Completed Medical Devices Description No Information Available Encounters Type Date Location Provider Dx Diagnosis Office Visit 07/03/2021 2:45p Main Office Ole Roth M.D. T78.3xxD Angioneurotic edema, subsequent encounter Assessments Date Code Description Provider 07/03/2021 T78.3xxD Angioneurotic edema, subsequent encounter Ole Roth M.D. Plan of Treatment Future Appointment(s):* 11/06/2021 3:30 pm - Ole Roth M.D. at Main Office 07/03/2021 - Ole Roth M.D.* T78.3xxD Angioneurotic edema, subsequent encounter* Recommendations:* Should stay on twice a day Xyzal and should use famotidine at 20 mg at bedtime. Should still take 1 to 2 tablets of hydroxyzine (25 to 50 mg) for breakthrough swelling. She should use EpiPen as needed for airway involvement, LOC. * All * Follow up:* 5 months. Sooner if needed. Functional Status Description No Information Available Mental Status Description No Information Available Referrals Description No Information Available
--- OUTSIDE RECORDS SUMMARY | 2021-07-29 07:27 | CCD | Continuity of Care Document ---
Author Author Sara SERRANO PA Organization Unknown Address [address] [facility] [place] [address] Phone [phone] Care Team Providers Care Willower Name Role Phone Nataly Jernigan DO AUTM [phone] Marita Hernandezc Eamon DO AUTM [phone] Problems Active Problems Provider Date Osteoarthritis of knee Onset: 07/05/1999 Essential hypertension Onset: 02/13/2017 Pure hypercholesterolemia Onset: 017 Social History Type Date Description Comments Sex Unknown ETOH Use Denies alcohol use Tobacco Use Start: Unknown End: Unknown Patient is a former smoker Allergies, Adverse Reactions, Alerts Active Allergies Criticality Reaction | Severity Comments Date Naproxen Unable to assess criticality 02/13/2017 Penicillin Unable to assess criticality 02/13/2017 Medications Active Medications SIG Qnty Indications Ordering Provide r Date Januvia 100mg Tablets Take One Tablet By Mouth Every Day Unknown Levocetirizine Dihydrochloride 5mg Tablets Unknown Hydroxyzine HCL 25mg Tablets Unknown Famotidine 20mg Tablets Unknown Tolterodine Tartrate ER 4mg Caps E R 24HR Praneeth Casanova DO Levocetirizine Dihydrochloride 5mg Tablets Ole Mckeon md Hydroxyzine HCL 25mg Tablets Take Two Tablets By Mouth Every Day AT Lunch Unknown Famotidine 20mg Tablets Ole Mckeon md Epinephrine 0.3mg/0. 3ML Solution Auto-Inject Inject Intramuscularly Once as Needed For Anaphylaxis Unknown Prednisone 20mg Tablets Take One Tablet By Mouth Twice A Day For 5 Days Unknown BD Pen Needle/Short/Ultra-Fine/31G X 8mm 31G X 8 mm Misc Nataly Jernigan, DO 00 Atorvastatin Calcium 40mg Tablets Nataly Jernigan, DO Amlodipine Besylate 5mg Tablets Take One Tablet [...] H/L Range Note Laboratory test finding 02/13/2021 [facility] [address] [place] [address] (315)- - Platelet Count, Automated 260 10 Normal 150-450 C Reactive Protein Quantitativ < 0.30 mg/dL Normal 0.00-0.30 Erythrocyte Sedimentation Rate 28 mm/hr Normal 0-30 PT & Aptt 02/13/2021 [facility] [address] [place] [address] (315)- - Prothrombin Time 13.2 seconds Normal [...] INFARCTION 2.5-3.5 Procedures Date Code Description Status 05/29/2021 52016 Office/Outpatient Established Mo d MDM 30-39 Min Completed 04/11/2021 75152 Phone Evaluation/Management By Liam hurley 5-10 Mins Completed 03/25/2021 70874 Moderate Sedation Se rvices; Same Phys Intl 15 Mins; PT >= 5 Years Completed 03/25/2021 62176 Inj Sacroiliac JT Ar thrography &/Or Anesthetic/Steroid W/Guidance Completed 02/13/2021 41779 Office/Outpatient Established Mo d MDM 30-39 Min Completed Medical Devices Description No Information Available Encounters Type Date Location Provider Dx Diagnosis Office Visit 05/29/2021 2:30p [place] ELISABET Rodriguez M51.36 Other intervertebral disc degeneration, 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, lumbar region M46.1 Sacroiliitis, not elsewhere classified Z96.641 Presence of right artificial hip joint Office Visit 04/11/2021 2[place] M46.1 Sacroiliitis, not elsewhere classified M51.36 Other intervertebral disc de generation, 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, lumbar region Office Visit 02/13/2021 1:00p [place] Kaiden Boles MD M51.36 Other intervertebral disc degeneration, 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, lumbar region M43.16 Spondylolisthesis, lumbar re gion M48.061 Spinal stenosis, lumbar bronwyn on without neurogenic jcarlos Assessments Date Code Description Provider 05/29/2021 M51.36 Other intervertebral disc degene ration, lumbar region Mayank Serrano, PA 05/29/2021 M47.816 Spondylosis without myelopathy o r radiculopathy, lumbar bronwyn Mayank Serrano, ELISABET 05/29/2021 M46.1 Sacroiliitis, not elsewhere ELISABET Viveros 05/29/2021 Z96.641 Presence of right artificial hip joint ELISABET Rodriguez 04/11/2021 M46.1 Sacroiliitis, not elsewhere ELISABET Viveros 04/11/2021 M51.36 Other intervertebral disc degene ration, lumbar region ELISABET Rodriguez 04/11/2021 M47.816 Spondylosis without myelopathy o r radiculopathy, lumbar bronwyn Mayank Serrano, ELISABET 03/25/2021 M46.1 Sacroiliitis, not elsewhere jayme Boles MD 02/13/2021 M51.36 Other intervertebral disc degene ration, lumbar region Kaiden Boles MD 02/13/2021 M47.816 Spondylosis without myelopathy o r radiculopathy, lumbar bronwyn Kaiden Boles MD 02/13/2021 M43.16 Spondylolisthesis, lumbar region Kaiden Boles MD 02/13/2021 M48.061 Spinal stenosis, lumbar region w ithout neurogenic claudicati Kaiden Boles MD Plan of Treatment Future Appointment(s):* 06/28/2021 1:00 pm - Kaiden Boles MD at [place] 05/29/2021 - ELISABET Rodriguez* M51.36 Other intervertebral disc degeneration, lumbar region * M47.816 Spondylosis without myelopathy or radiculopathy, lumbar bronwyn * M46.1 Sacroiliitis, not elsewhere classified* Follow up:* with IID after emg for results * Z96.641 Presence of right artificial hip joint Functional Status Description No Information Available Mental Status Description No Information Available Referrals Refer to Dr Reason for Referral Status Appt Date Kaiden Boles MD EMG NO AUTH REQUIRED TO SCHEDULING NT Crea marty [address] [place] [address] [phone] Kaiden Boles MD MRI NO AUTH REQUIRED FOR MRI OF LUMBAR SPINE (66590) AND PELVIS ([id number]) TO DOC LoBernadette DG Created [address] [place] [address] [phone] Kaiden Boles MD MRI NO AUTH REQUIRED PER HEA THER FOR MRI OF LUMBAR SPINE (76238) AND PELVIS ([id number]) TO DOC LoBernadette DG Created [address] [place] [address] [phone] Kaiden Boles MD [employer]$[id number], AND [id number]) NO AUTH REQU IRED TO SURGERY NT Created [address] [place] [address] [phone] Kaiden Boles MD [employer]IG[employer] INJ'S([id number], AND [id number]) NO AUTH REQU IRED TO SURGERY NT Created [address] [place] [address] [phone]
--- OUTSIDE RECORDS SUMMARY | 2021-07-29 07:27 | CCD ---
Author Author [facility] Organization [facility] Address Unknown Phone Unavailable Care Team Providers Care Embroiderer Name Role Phone Pauly Portillo Unavailable PROBLEMS Type Condition ICD9-CM Code [id number] Code Onset Dates Condition S tatus W/U Status Risk SNOMED Code Notes Problem Insomnia, unspecified type G47.00 Active confirmed 959660696 Problem Hypothyroidism, unspecified type E03.9 Active conf irmed 47276135 Problem Urge urinary incontinence N39.41 Active confirmed 95994694 Problem Lichen sclerosus et atrophicus L90.0 Active confir med 49546157 Problem Type 2 diabetes mellitus wit hout complication, unspecified whether fci insulin use E11.9 Active confirmed 800626565 Problem Hypertensive heart disease without heart failure I 11.9 Active confirmed 83524404 Problem Generalized anxiety disorder F41.1 Active confirme d 58962249 Problem 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 Active confirmed 950931132 ALLERGIES Allergen (clinical drug ingredient) Drug/Non Drug Allergy do cumented on EMR Reaction Allergy Type Onset Date Status losartan Losartan Potassium(ND Code:[address]-92) tongu e swelling Drug Allergy Active naproxen Naproxen(NDC Code:[address]-66) hives Drug Allergy Active Penicillin (For Allergies Use Only) hives Drug Allerg y Active ENCOUNTERS from 1950 to 2021-06-17 Encounter Location Date Provider Diagnosis [facility] Resident [address] [phone] [place] [address] 13 May, 2021 Portillo Coats Type 2 diabetes priscilla itus without complication, unspecified whether fci insulin use E11.9 ; Encounter for screening mammogram for malignant neoplasm of breast Z12.31 and Encounter for screening for malignant neoplasm of colon Z12.11 IMMUNIZATIONS Vaccine Route Administration Date Status Influenza [...] Education Language: Question Answer Notes Languages spoken: Cook Islander Yarsanism: Question Answer Notes Yarsanism No rastafari beliefs that would impact health care. Sexual [...] REASON FOR REFERRAL No Information VITAL SIGNS Weight 219 lbs May, Weight-kg 99.34 kg May, Height 65 in May, BMI 36.44 kg/m2 May, Heart Rate 72 /min May, Respiratory Rate 18 /min May, Temperature 98.1 degrees Fahrenheit May, Oximetry 95 May, Blood pressure systolic 138 mm Hg May, Blood pressure diastolic 78 mm Hg May, MEDICATIONS Medication SIG (Take, Route, Frequency, Duration) Notes Start Da te End Date Status Detrol LA 4 MG 1 capsule Orally Once a day for 90 days Nov, Not-Taking Centrum Silver - as directed Orally Active Sentry - as directed Orally Active PriLOSEC OTC 20 MG 1 tablet Orally Once a day for 30 day(s) Active Insulin Lispro Prot & Lispro (75-25) 100 UNIT/ML INJEC T 25 UNITS SUBCUTANEOUSLY TWO TIMES A DAY for 30 Active hydrOXYzine HCl 25 MG TAKE TWO TABLETS BY MOUTH EV DAY AT LUNCH AND EVERY 4 6 HOURS NEEDED FOR FLARES OF ANGIODEMA Oral as directed for 30 days Active Synthroid 100 MCG 1 tablet on an empty stomach in the morning Orally Once a day for 30 Active predniSONE 20 MG 1 tablet Orally bid for 5 days Jun, Active Potassium Chloride ER 10 MEQ 1 tablet with food Orally Twice a day Active Farxiga 5 MG TAKE ONE TABLET BY MOUTH EVERY DAY Orally Once a day for 30 days Active Bisoprolol-hydroCHLOROthiazide 10-6.25 MG 1 tablet Orally Once a da y for 90 Active Ambien CR 6.25 MG 1 tablet at bedtime as needed Orally Once a da y for 30 days Sep, Active Detrol LA 2 MG TAKE ONE CAPSULE BY MOUTH EVERY DAY for 30 Not-Taking Zolpidem Tartrate 5 MG 1 tablet at bedtime Orally Once a day Not-Taking Aspirin Adult Low Dose 81 MG 1 tablet Orally Once a day for 30 day(s) Active Atorvastatin Calcium 40 MG 1 tablet Orally Once a day for 30 day(s) Active Detrol LA 2 MG 1 capsule Orally Once a day for 30 day(s) 0 Nov, Active Aspirin 81 MG 1 tablet Orally Once a day for 30 day(s) double Not-Taking Amlodipine Besylate 5 MG 1 tablet Orally twice a day for 90 Active Januvia 100 MG 1 tablet Orally Once a day for 90 Active Clobetasol Propionate 0.05 % 1 application Externally Once a day for 14 day(s) Dispense monthly supply. Thank you. Nov, Act yoseph Ramelteon 8 MG 1 tablet at bedtime as needed Orally Once a day for 30 days Jul, Not-Taking amLODIPine Besylate 5 MG 1 tablet Orally Once a day for 90 days Active Tylenol 325 MG 500mg Orally every 4 hrs Active Magnesium 400 MG 4 capsules Orally [...] Information RESULTS No Results REASON FOR VISIT r/s 1 mo FU MEDICAL (GENERAL) HISTORY Type Description Date Medical [...] Notes Treatment Notes Treatm ent Clinical Notes May, Type 2 diabetes mellitus wit hout complication, unspecified whether fci insulin use (ICD-10 - E11.9) Patient's last HbA1c was 2 months ago the next HbA1c level to be tested would be in 1 month. This has been ordered. Patient was also advised to sign release of records so that we can obtain records from her ophthalmology office. Patient also stated that she has some allergy history and has establish care with an quality control assistant at this time. Release of records has been signed so that information from the allergy office may be obtained. Patient reports that her next eye exam is in September 2021. May, Encounter for screening mamm ogram for malignant neoplasm of breast (ICD-10 - Z12.31) Patient has a positive family history of breast cancer. She is due for a mammogram which has already been ordered. Patient was [facility] and [facility] that [facility]. Patient verbalized understanding. The order is already pending. May, Encounter for screening for malignant neoplasm of colon (ICD-10 - Z12.11) The patient has established care with a cuff setter and neurologist, Dr. Pettit. Patient stated that she will be in touch with Dr. Pettit's office to set up a follow-up appointment for a colonoscopy. She has a positive family history of colorectal cancer. Patient was also advised to sign release of records so that we can obtain records from her gastroenterology office. PLAN OF TREATMENT Medication Medication Name Sig [...] Orally Once a day for 30 days Synthroid 100 MCG 1 tablet on an empty stomach in the morning Orally Once a day for 30 hydrOXYzine HCl 25 MG TAKE TWO TABLETS BY MOUTH EV MARLIN DAY AT LUNCH AND EVERY 4 6 HOURS NEEDED FOR FLARES OF ANGIODEMA Oral as directed for 30 days Treatment Notes Assessment Notes Clinical Notes Type 2 diabetes mellitus without complic ation, unspecified whether fci insulin use Patient's last HbA1c was 2 m onths ago the next HbA1c level to be tested would be in 1 month. This has been ordered. Patient was also advised to sign release of records so that we can obtain records from her ophthalmology office. Patient also stated that she has some allergy history and has establish care with an quality control assistant at this time. Release of records has been signed so that information from the allergy office may be obtained. Patient reports that her next eye exam is in September 2021. Encounter for screening mammogram for malignant neoplasm of breast Patient has a positive family history of breast cancer. She is due for a mammogram which has already been ordered. Patient was [facility] and [facility] that up. Patient verbalized understanding. The order is already pending. Encounter for screening for malignant neoplasm of colon The patient has established care with a cuff setter and neurologist, Dr. Pettit. Patient stated that she will be in touch with Dr. Pettit's office to set up a follow-up appointment for a colonoscopy. She has a positive family history of colorectal cancer. Patient was also advised to sign release of records so that we can obtain records from her gastroenterology office. Future Test Test Name Order Date HEMOGLOBIN A1c [id number] Next Appt Details 3 Months Reason:Type 2 diabetes Follow Up:3 MonthsType 2 diabetes Insurance Providers Payer Name Payer Address Payer Phone Insured Name Patient Relati onship to Insured Coverage Start Date Coverage End Date [facility] [address] [address] [facility] [phone] MORGAN LING MEDICARE Part A and B [address] [facility] [address] MORGAN LING
--- OUTSIDE RECORDS SUMMARY | 2021-07-29 07:27 | CCD ---
Author Author [facility] Organization [facility] Address Unknown Phone Unavailable Care Team Providers Care Foundry Molder Name Role Phone Wliy Castellon Unavailable PROBLEMS Type Condition ICD9-CM Code [id number] Code Onset Dates Condition S tatus W/U Status Risk SNOMED Code Notes Problem Insomnia, unspecified type G47.00 Active confirmed 911511454 Problem Hypothyroidism, unspecified type E03.9 Active conf irmed 04673853 Problem Urge urinary incontinence N39.41 Active confirmed 69672611 Problem Lichen sclerosus et atrophicus L90.0 Active confir med 06912219 Problem Type 2 diabetes mellitus wit hout complication, unspecified whether mcfp insulin use E11.9 Active confirmed 276753910 Problem Hypertensive heart disease without heart failure I 11.9 Active confirmed 69846629 Problem Generalized anxiety disorder F41.1 Active confirme d 01557983 Problem 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 Active confirmed 261426015 ALLERGIES Allergen (clinical drug ingredient) Drug/Non Drug Allergy do cumented on EMR Reaction Allergy Type Onset Date Status losartan Losartan Potassium([facility] Code:[address]-38) tongu e swelling Drug Allergy Active naproxen Naproxen(ND Code:[address]-88) hives Drug Allergy Active Penicillin (For Allergies Use Only) hives Drug Allerg y Active ENCOUNTERS from 1950 to 2021-06-11 Encounter Location Date Provider Diagnosis [address] [phone] [place] [address] May, Wily Castellon IMMUNIZATIONS Vaccine Route Administration Date Status Influenza [...] Education Language: Question Answer Notes Languages spoken: Bhutanese Spiritism: Question Answer Notes Spiritism No mandaen beliefs that would impact health care. Sexual [...] Once a day for 30 day(s) 0 3 Nov, 2019 Active Aspirin 81 MG 1 tablet Orally [...] Information RESULTS No Results REASON FOR VISIT PA hydroxyzine 25mg tab MEDICAL (GENERAL) HISTORY Type Description Date Medical [...] No Information FUNCTIONAL STATUS No Information ASSESSMENTS No Information PLAN OF TREATMENT Medication Medication Name Sig [...] Insured Coverage Start Date Coverage End Date MEDICARE Part A and B [address] [facility] [phone] [employer]GAN LING self [facility] [address] [address] [facility] [phone] M[employer]GAN LING self
--- OUTSIDE RECORDS SUMMARY | 2021-07-29 07:27 | CCD | Continuity of Care Document ---
Author Author Sara ROTH M.D. Organization Unknown Address [address] [place] [address] Phone [phone] Care Team Providers Care Substation Operator Helper Name Role Phone Nataly Jernigan DO BRASWELL Unavailable Problems Description No Information Available Social History Type Date Description Comments Sex Unknown Tobacco Use Start: Unknown End: Patient is a former smoker 1.5 pks per day Smoking Status Reviewed: 05/16/21 Patient is a former smoker 1. 5 pks per day Allergies, Adverse Reactions, Alerts Active Allergies Criticality [...] (75-25)100Unit/ML Supn Unknown Atorvastatin Calcium 40mg Tablets Nataly Jernigan, DO Levothyroxine Sodium 100mcg Tablets Unknown Farxiga 5mg Tablets Unknown Tolterodine Tartrate ER 4mg Caps E R 24HR Unknown Amlodipine Besylate 5mg Tablets Unknown Immunizations Description No Information Available Vital Signs Date Vital Result Comment 05/16/2021 2:35pm Weight 219.00 lb Height 65 inches 5'5" Heart Rate 70 /min Respiratory Rate 16 /min BP Systolic 110 mmHg BP Diastolic 66 mmHg BMI (Body Mass Index) 36.4 kg/m2 10/09/2020 9:14am Weight 218.38 lb Height 65 inches 5'5" Heart Rate 66 /min Respiratory Rate 16 /min BP Systolic 132 mmHg BP Diastolic 75 mmHg BMI (Body Mass Index) 36.3 kg/m2 Results Description No Information Available Procedures Date Code Description Status 05/16/2021 59283 Office/Outpatient Established Mo d MDM 30-39 Min Completed 05/16/2021 03986 Office/Outpatient Established Lo w MDM 20-29 Min Completed Medical Devices Description No Information Available Encounters Type Date Location Provider Dx Diagnosis Office Visit 05/16/2021 2:30p Main Office Ole Roth M.D. T78.3xxD Angioneurotic edema, subsequent encounter Assessments Date Code Description Provider 05/16/2021 T78.3xxD Angioneurotic edema, subsequent encounter Ole Roth M.D. Plan of Treatment Future Appointment(s):* 07/03/2021 2:45 pm - Ole Roth M.D. at Main Office 05/16/2021 - Ole Roth M.D.* T78.3xxD Angioneurotic edema, subsequent encounter* New Medication:* Levocetirizine Dihydrochloride 5 mg - take one tablet by mouth bid for angioedema * Famotidine 20 mg - 1 by mouth once daily in the evening * Hydroxyzine HCL 25 mg - take two tablets (50 mg) by mouth once daily at lunch and every 4-6 hours as needed for flares of angioedema * Recommendations:* Because of the persistence and frequency of her flares, it was recommended to start patient on Xyzal (levocetirizine) @ 1 tablet by mouth twice daily, famotidine 20 mg every evening, and hydroxyzine 50 mg at lunch. She should continue on this regimen for the next two months and we will reassess her response/how she is doing at follow-up in 6-8 weeks. She should use EpiPen as needed for airway involvement, LOC. Proper use and administration technique of EpiPen device was reviewed and demonstrated with patient in office today. * All * Follow up:* 6-8 weeks. Sooner if needed. Should go to the ER if reaction is not resolving with hydroxyzine for breakthrough. Functional Status Description No Information Available Mental Status Description No Information Available Referrals Description No Information Available
--- OUTSIDE RECORDS SUMMARY | 2021-07-29 07:27 | CCD | Continuity of Care Document ---
Author Author Sara ROTH M.D. Organization Unknown Address [address] [place] [address] Phone [phone] Care Team Providers Care Dialysis Chief Equipment Technician Name Role Phone Nataly Jernigan DO BRASWELL [...] Available Procedures Date Code Description Status 07/03/2021 48569 Office/Outpatient Established Lo w MDM 20-29 Min Completed 05/16/2021 52917 Office/Outpatient Established Mo d MDM 30-39 Min Completed 05/16/2021 79626 Office/Outpatient Established Lo w MDM 20-29 Min [...]
--- OUTSIDE RECORDS SUMMARY | 2021-07-29 07:27 | CCD | Continuity of Care Document ---
Author Author Sara ROTH M.D. Organization Unknown Address [address], [place] [address] Phone [phone] Care Team Providers Care Human Resources Coordinator Name Role Phone Nataly Jernigan Unavailable Problems Description No Information Available Social [...] SIG Qnty Indications Ordering Provide r Date Levocetirizine Dihydrochloride 5mg Tablets take one tablet by mouth bid for angioedema 60tabs T78. 3xxD Ole Roth M.D. 05/16/2021 Epinephrine 0.3mg/0. 3ML Solution Auto-Inject inject intramuscularly once as needed for anaphylaxis 1units T78.3xxD Ole Roth M.D. 10/09/2020 Amlodipine Besylate 5mg Tablets Unknown Tolterodine Tartrate ER 4mg Caps E R 24HR Unknown Farxiga 5mg Tablets Unknown Levothyroxine Sodium 100mcg Tablets Unknown Atorvastatin Calcium 40mg Tablets Nataly Jernigan DO Humalog Mix 75/25 Kwikpen (75-25)100Unit/ML Supn Unknown Januvia 100mg Tablets Take One Tablet By Mouth Every Day Unknown Bisoprolol Fumarate/Hydrochlorothiazide 10-6.25mg Tablets Take One Tablet By Mouth Every Day Unkn own Potassium Chloride ER 10Meq Tablets ER Unknown BD Pen Needle/Short/Ultra-Fine/31G X 8mm 31G X 8 mm Misc Use as Directed Unknown Aspirin Low Dose 81mg Tablets DR Unknown Prilosec OTC 20mg Tablets DR Take 1 tablet once daily Unknown Prednisone 20mg Tablets take 2 tablets by mouth Unknown Benadryl Allergy 25mg Tablets take 2 tablets every 4-6 hours if needed Unknown Immunizations Description No Information Available Vital [...] kg/m2 Results Description No Information Available Procedures Description No Information Available Medical Devices Description No Information Available Encounters Description No Information Available Assessments Date Code Description Provider 05/16/2021 T78.3xxD Angioneurotic edema, subsequent encounter Ole Roth M.D. Plan of Treatment 05/16/2021 - Ole Roth M.D.* T78.3xxD Angioneurotic edema, subsequent encounter* New Medication:* Levocetirizine Dihydrochloride 5 mg - take one tablet by mouth bid for angioedema * Recommendations:* Because of the persistence [...] is doing at follow-up in 6-8 weeks. Will also send for EpiPen for patient to use as needed for airway involvement, LOC. Proper use and administration technique of EpiPen device was reviewed and demonstrated with patient in office today. * All * Follow up:* 6-8 weeks. Sooner if needed. Functional Status Description No Information Available Mental Status Description No Information Available Referrals Description No Information Available
--- OUTSIDE RECORDS SUMMARY | 2021-07-29 07:27 | CCD | Continuity of Care Document ---
Author Author Sara ALFONSO MD Organization Unknown Address [address] [place] [address], [address] [place] [address] Phone [phone] Care Team Providers Care Horticulture Superintendent Name Role Phone Nataly Jernigan DO AUTM [phone] Patrick Hernandez DO AUTM [phone] Problems Active Problems Provider Date Osteoarthritis of [...] Needle/Short/Ultra-Fine/31G X 8mm 31G X 8 mm [facility] Jernigan, DO 00 Amlodipine Besylate 5mg [...] H/L Range Note [facility] [address] [place] [address] (315)- - Platelet Count, Automated 260 10 Normal 150-450 C Reactive Protein Quantitativ < 0.30 mg/dL Normal 0.00-0.30 Erythrocyte Sedimentation Rate 28 mm/hr Normal 0-30 PT & Aptt 02/13/2021 [facility] [address] [place] [address] (315)- - Prothrombin Time 13.2 seconds Normal [...] 2.5-3.5 Procedures Date Code Description Status 06/28/2021 18666 Office/Outpatient Established Mo d MDM 30-39 Min Completed 06/28/2021 70479 Nerve Conduction 7-8 Studies Com pleted 06/28/2021 82147 Needle Electromyography,Complete Five Or More Muscles Studied Completed 05/29/2021 37015 Office/Outpatient Established Mo d MDM 30-39 Min Completed 04/11/2021 81821 Phone Evaluation/Management By Liam hurley 5-10 Mins Completed 03/25/2021 35381 Moderate Sedation Se rvices; Same Phys Intl 15 Mins; PT >= 5 Years Completed 03/25/2021 51976 Inj Sacroiliac JT Ar thrography &/Or Anesthetic/Steroid W/Guidance Completed 02/13/2021 23909 Office/Outpatient Established Mo d MDM 30-39 Min Completed Medical Devices Description No Information Available Encounters Type Date Location Provider Dx Diagnosis Office Visit 05/29/2021 2:30p [place] ELISABET Rodriguez M51.36 Other intervertebral disc degeneration, 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, lumbar region M46.1 Sacroiliitis, not elsewhere classified Z96.641 Presence of right artificial hip joint Office Visit 04/11/2021 2:20p [place] M46.1 Sacroiliitis, not elsewhere classified M51.36 Other intervertebral disc de generation, 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36 Other intervertebral disc degene ration, lumbar region Mayank Serrano, ELISABET 04/11/2021 M47.816 Spondylosis without myelopathy o r radiculopathy, lumbar bronwyn Mayank Serrano, ELISABET 03/25/2021 M46.1 Sacroiliitis, not elsewhere jayme Alfonso MD 02/13/2021 M51.36 Other intervertebral disc degene ration, lumbar region Kaiden Alfonso MD 02/13/2021 M47.816 Spondylosis without myelopathy o r radiculopathy, lumbar bronwyn Kaiden Alfonso MD 02/13/2021 M43.16 Spondylolisthesis, lumbar region Kaiden Alfonso MD 02/13/2021 M48.061 Spinal stenosis, lumbar region w [facility] neurogenic claudicati Kaiden Alfonso MD Plan of Treatment Future Appointment(s):* 07/17/2021 2:45 pm - ELISABET Rodriguez at [place] 06/28/2021 - Kaiden Alfonso MD* M51.36 Other intervertebral disc degeneration, lumbar region* Follow up:* with IID for EMG results * M51.37 Other intervertebral disc degeneration, lumbosacral region * M47.896 Other spondylosis, lumbar region * M47.897 Other spondylosis, lumbosacral region * M51.26 Other intervertebral disc displacement, lumbar region * M48.061 Spinal stenosis, lumbar region without neurogenic claudication Functional Status Description No Information Available Mental Status Description No Information Available Referrals Refer to Dr Reason for Referral Status Appt Date Kaiden Alfonso MD EMG NO AUTH REQUIRED TO SCHEDULING NT Crea marty [address] [place] [phone] [phone] Kaiden Alfonso MD MRI NO AUTH REQUIRED FOR MRI OF LUMBAR SPINE ([id number]) AND PELVIS ([id number]) TO DOC OCASIO Created [address] [place] [address] [phone] Kaiden Alfonso MD MRI NO AUTH REQUIRED PER HEA THER FOR MRI OF LUMBAR SPINE ([id number]) AND PELVIS ([id number]) TO DOC Gentile DG Created [address] [place] [phone] Kaiden Alfonso MD JIGAR INJ'S$[id number], AND [id number]) NO AUTH REQU IRED TO SURGERY NT Created [address] [place] [phone] [phone] Kaiden Alfonso MD JIGAR INJ'S([id number], AND [id number]) NO AUTH REQU IRED TO SURGERY NT Created [address] [place] [phone]
--- OUTSIDE RECORDS SUMMARY | 2021-07-29 07:27 | CCD ---
Author Author [facility] Organization [facility] Address Unknown Phone Unavailable Care Team Providers Care Track Welder Name Role Phone Portillo Coats Unavailable PROBLEMS Type Condition ICD9-CM Code [id number] Code Onset Dates Condition S tatus W/U Status Risk SNOMED Code Notes Problem Insomnia, unspecified type G47.00 Active confirmed 036777623 Problem Hypothyroidism, unspecified type E03.9 Active conf irmed 87944024 Problem Urge urinary incontinence N39.41 Active confirmed 48451049 Problem Lichen sclerosus et atrophicus L90.0 Active confir med 69795217 Problem Type 2 diabetes mellitus wit hout complication, unspecified whether nursing home insulin use E11.9 Active confirmed 814344657 Problem Hypertensive heart disease without heart failure I 11.9 Active confirmed 34728222 Problem Generalized anxiety disorder F41.1 Active confirme d 38804668 Problem 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 Active confirmed 992994718 ALLERGIES Allergen (clinical drug ingredient) Drug/Non Drug Allergy do cumented on EMR Reaction Allergy Type Onset Date Status losartan Losartan Potassium(ND Code:[address]-17) tongu e swelling Drug Allergy Active naproxen Naproxen(NDC Code:[address]-87) hives Drug Allergy Active Penicillin (For Allergies Use Only) hives Drug Allerg y Active ENCOUNTERS from 1950 to 2021-06-07 Encounter Location Date Provider Diagnosis [facility] [address] [phone] [place] [address] 14 May, 2021 Portillo Coats IMMUNIZATIONS Vaccine Route Administration Date Status Influenza [...] Education Language: Question Answer Notes Languages spoken: Polish Latter-Day: Question Answer Notes Latter-Day No mandaen beliefs that would impact health [...] tablet Orally Once a da y for Active Ambien CR 6.25 MG 1 tablet [...] Information RESULTS No Results REASON FOR VISIT medicatons MEDICAL (GENERAL) HISTORY Type Description Date Medical [...] Part A and B [address] [facility] [address] MORGAN LING self [facility] [address] [address] [facility] [address] MORGAN LING self
--- OUTSIDE RECORDS SUMMARY | 2021-07-29 07:27 | CCD ---
Author Author [facility] Organization [facility] Address Unknown Phone Unavailable Care Team Providers Care Transaction Processor Name Role Phone Wily Castellon Unavailable PROBLEMS Type Condition ICD9-CM Code [id number] Code Onset Dates Condition S tatus W/U Status Risk SNOMED Code Notes Problem Insomnia, unspecified type G47.00 Active confirmed 032122854 Problem Hypothyroidism, unspecified type E03.9 Active conf irmed 26712711 Problem Urge urinary incontinence N39.41 Active confirmed 14039972 Problem Lichen sclerosus et atrophicus L90.0 Active confir med 43129813 Problem Type 2 diabetes mellitus wit hout complication, unspecified whether nursing home insulin use E11.9 Active confirmed 607940894 Problem Hypertensive heart disease without heart failure I 11.9 Active confirmed 40693145 Problem Generalized anxiety disorder F41.1 Active confirme d 82490578 Problem 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 Active confirmed 592793258 ALLERGIES Allergen (clinical drug ingredient) Drug/Non Drug Allergy do cumented on EMR Reaction Allergy Type Onset Date Status losartan Losartan Potassium(ND Code:[address]-32) tongu e swelling Drug Allergy Active naproxen Naproxen(NDC Code:[address]-08) hives Drug Allergy Active Penicillin (For Allergies Use Only) hives Drug Allerg y Active ENCOUNTERS from 1950 to 2021-07-02 Encounter Location Date Provider Diagnosis [facility] [address] [place] [address] Jun, Wily Castellon IMMUNIZATIONS Vaccine Route Administration Date [...] Education Language: Question Answer Notes Languages spoken: Wolof Spiritism: Question Answer Notes Spiritism No uatsdin beliefs that would impact health care. Sexual [...] da y for 30 days Sep, Active Atorvastatin Calcium 40 MG 1 tablet [...] Part A and B [address] [facility] [address] MORGAN LING self [facility] [address] [address] [facility] [address] MORGAN LING self
--- OUTSIDE RECORDS SUMMARY | 2021-07-29 07:27 | CCD | Continuity of Care Document ---
Author Author Sara ALFONSO MD Organization Unknown Address [address] [place] [address], [address] [place] [address] Phone [phone] Care Team Providers Care Adult Educator Name Role Phone Nataly Jernigan DO AUTM [phone] Patrick Hernandez DO AUTM [phone] Problems Active Problems Provider Date Osteoarthritis of [...] Casanova DO Levocetirizine Dihydrochloride 5mg Tablets Ole Mckoen md Hydroxyzine HCL 25mg Tablets Take Two Tablets By Mouth Every Day AT Lunch Unknown Epinephrine 0.3mg/0. 3ML Solution Auto-Inject Inject Intramuscularly Once as Needed For Anaphylaxis Unknown Januvia 100mg Tablets Take One Tablet By Mouth Every Day Unknown BD Pen Needle/Short/Ultra-Fine/31G X 8mm 31G X 8 mm [facility] Nataly Jernigan, DO 00 Amlodipine Besylate 5mg [...] H/L Range Note Laboratory test finding 02/13/2021 [facility] [address] [place] [address] (315)- - Platelet Count, Automated 260 10 Normal 150-450 C Reactive Protein Quantitativ < 0.30 mg/dL Normal 0.00-0.30 Erythrocyte Sedimentation Rate 28 mm/hr Normal 0-30 PT & Aptt 02/13/2021 [facility] [address] [place] [address] (315)- - Prothrombin Time 13.2 seconds Normal [...] 2.5-3.5 Procedures Date Code Description Status 06/28/2021 76473 Office/Outpatient Established Mo d MDM 30-39 Min Completed 06/28/2021 93269 Nerve Conduction 7-8 Studies Com pleted 06/28/2021 94053 Needle Electromyography,Complete Five Or More Muscles Studied Completed 05/29/2021 25419 Office/Outpatient Established Mo d MDM 30-39 Min Completed 04/11/2021 35217 Phone Evaluation/Management By Liam hurley 5-10 Mins Completed 03/25/2021 95154 Moderate Sedation Se rvices; Same Phys Intl 15 Mins; PT >= 5 Years Completed 03/25/2021 55975 Inj Sacroiliac JT Ar thrography &/Or Anesthetic/Steroid W/Guidance Completed 02/13/2021 00254 Office/Outpatient Established Mo d MDM 30-39 Min Completed Medical Devices Description No Information Available Encounters Type Date Location Provider Dx Diagnosis Office Visit 05/29/2021 2:30p [place] ELISABET Rodriguez M51.36 Other intervertebral disc degeneration, 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, lumbar region M46.1 Sacroiliitis, not elsewhere classified Z96.641 Presence of right artificial hip joint Office Visit 04/[place]/2021 2[place] M46.1 Sacroiliitis, not elsewhere classified M51.36 Other intervertebral disc de generation, 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, lumbar region Office Visit 02/13/2021 1:00p [place] Kaiden Alfonso MD M51.36 Other intervertebral disc [...] 02/13/2021 M48.061 Spinal stenosis, lumbar region w the [facility] neurogenic claudicati Kaiden Alfonso MD Plan of Treatment Future Appointment(s):* 07/17/2021 2:45 pm - ELISABET Rodriguez at [place] 06/28/2021 - Kaiden Alfonso MD* M51.36 Other [...] AUTH REQUIRED TO SCHEDULING NT Crea marty [address] [place] [address] [phone] Kaiden Alfonso MD MRI NO AUTH REQUIRED FOR MRI OF LUMBAR SPINE (72447) AND PELVIS ([id number]) TO DOC OCASIO Created [address] [place] [address] [phone] Kaiden Alfonso MD MRI NO AUTH REQUIRED PER HEA THER FOR MRI OF LUMBAR SPINE (62384) AND PELVIS (30342) TO DOC Gentile DG Created [address] [place] [address] [phone] Kaiden Alfonso MD JIGAR INJ'S$[id number], AND [id number]) NO AUTH REQU IRED TO SURGERY NT Created [address] [place] [address] [phone] Kaiden Alfonso MD JIGAR INJ'S([id number], AND [id number]) NO AUTH REQU IRED TO SURGERY NT Created [address] [place] [address] [phone]
--- OUTSIDE RECORDS SUMMARY | 2021-07-29 07:27 | CCD ---
Author Author [facility] Organization [facility] Address Unknown Phone Unavailable Care Team Providers Care Hotel General Manager Name Role Phone Portillo Coats Unavailable PROBLEMS Type Condition ICD9-CM Code DHA43-AR Code Onset Dates Condition S tatus W/U Status Risk SNOMED Code Notes Problem Insomnia, unspecified type G47.00 Active confirmed 231219195 Problem Hypothyroidism, unspecified type E03.9 Active conf irmed 11894156 Problem Urge urinary incontinence N39.41 Active confirmed 26099866 Problem Lichen sclerosus et atrophicus L90.0 Active confir med 85720030 Problem Type 2 diabetes mellitus wit hout complication, unspecified whether alf insulin use E11.9 Active confirmed 136109935 Problem Hypertensive heart disease without heart failure I 11.9 Active confirmed 00342922 Problem Generalized anxiety disorder F41.1 Active confirme d 29074664 Problem 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 Active confirmed 529680142 ALLERGIES Allergen (clinical drug ingredient) Drug/Non Drug Allergy do cumented on EMR Reaction Allergy Type Onset Date Status losartan Losartan Potassium(NDC Code:[address]-93) tongu e swelling Drug Allergy Active naproxen Naproxen(NDC Code:[address]-64) hives Drug Allergy Active Penicillin (For Allergies Use Only) hives Drug Allerg y Active ENCOUNTERS from 1950 to 2021-06-05 Encounter Location Date Provider Diagnosis [facility] [address] [facility] [phone] [place] [address] May, Portillo Coats IMMUNIZATIONS Vaccine Route Administration Date [...] Education Language: Question Answer Notes Languages spoken: Danish Mu-Ism: Question Answer Notes Mu-Ism No faith beliefs that would impact health care. Sexual [...] Notes Start Da te End Date Status Synthroid 100 MCG 1 tablet on an empty stomach in the morning Orally Once a day for 30 Active PriLOSEC OTC 20 MG 1 tablet Orally Once a day for 30 day(s) Active hydrOXYzine HCl 25 MG TAKE TWO TABLETS BY MOUTH AT LUNCH AND EVERY 4 6 HOURS NEEDED FOR FLARES OF ANGIODEMA Oral for 30 Active Januvia 100 MG 1 tablet Orally Once a day for 90 Active Farxiga 5 MG TAKE ONE TABLET BY MOUTH EVERY DAY Orally Once a day for 30 days Active predniSONE 20 MG 1 tablet Orally bid for 5 days Jun, Active Insulin Lispro Prot & Lispro (75-25) 100 UNIT/ML INJEC T 25 UNITS SUBCUTANEOUSLY TWO TIMES A DAY for 30 Active Centrum Silver - as directed Orally Active Potassium Chloride ER 10 MEQ 1 tablet with food Orally Twice a day Active Famotidine 20 MG TAKE ONE TABLET BY MOUTH EVERY EVENING Oral for 30 Active Bisoprolol-hydroCHLOROthiazide 10-6.25 MG 1 tablet Orally Once a da y for 90 Active Aspirin Adult Low Dose 81 MG 1 tablet Orally Once a day for 30 day(s) Active Aspirin 81 MG 1 tablet Orally Once a day for 30 day(s) double Not-Taking Detrol LA 2 MG 1 capsule Orally Once a day for 30 day(s) 0 3 Nov, 2019 Active Sentry - as directed Orally Active Amlodipine Besylate 5 MG 1 tablet Orally twice a day for 90 Active Detrol LA 2 MG TAKE ONE CAPSULE BY MOUTH EVERY DAY for 30 Not-Taking Ramelteon 8 MG 1 tablet at bedtime as needed Orally Once a day for 30 days Jul, Not-Taking Levocetirizine Dihydrochloride 5 MG TAKE ONE TABLET BY MOUTH TWICE A DAY FOR ANGIOEDEMA Oral for 30 Active Atorvastatin Calcium 40 MG 1 tablet Orally Once a day for 30 day(s) Active amLODIPine Besylate 5 MG 1 tablet Orally Once a day for 90 days Active Detrol LA 4 MG 1 capsule Orally Once a day for 90 days Nov, Not-Taking Ambien CR 6.25 MG 1 tablet at bedtime as needed Orally Once a da y for 30 days Sep, Active Clobetasol Propionate 0.05 % 1 application Externally Once a day for 14 day(s) Dispense monthly supply. Thank you. Nov, Act yoseph Tylenol 325 MG 500mg Orally every 4 hrs Active Zolpidem Tartrate 5 MG 1 tablet at bedtime Orally Once a day Not-Taking Acetaminophen Extra Strength 500 MG 1 tablet as needed Orally every 6 hrs Unknown Magnesium 400 MG 4 capsules Orally once a day Active PROCEDURES No Information RESULTS No Results [...] Medication Name Sig Start Date Stop Date Farxiga 5 MG TAKE ONE TABLET BY MOUTH EVERY DAY Orally Once a day for 30 days Synthroid 100 MCG 1 tablet on an empty stomach in the morning Orally Once a day for 30 Insurance Providers Payer Name Payer Address Payer Phone Insured Name Patient Relati onship to Insured Coverage Start Date Coverage End Date MEDICARE Part A and B [address] [facility] [id number] MORGAN LING [facility] [address] [address] [facility] [phone] MORGAN LING
--- OUTSIDE RECORDS SUMMARY | 2021-07-29 07:28 | CCD ---
Author Author [facility] Organization [facility] Address Unknown Phone Unavailable Care Team Providers Care Health Outcomes Liaison Name Role Phone Boles, Kaiden Unavailable Unavailable Boles, Kaiden Unavailable Unavailable Boles, Kaiden Unavailable Unavailable Boles, Kaiden Unavailable Unavailable Boles, Kaiden Unavailable Unavailable Boles, Kaiden Unavailable Unavailable Boles, Kaiden Unavailable Unavailable Boles, Kaiden Unavailable Unavailable Obles, Kaiden Unavailable Unavailable Boles, Kaiden Unavailable Unavailable Boles, Kaiden Unavailable Unavailable Boles, Kaiden Unavailable Unavailable Boles, Kaiden Unavailable Unavailable Boles, Kaiden Unavailable Unavailable Boles, Kaiden Unavailable Unavailable Boles, Kaiden Unavailable Unavailable Boles, Kaiden Unavailable Unavailable Boles, Kaiden Unavailable Unavailable Boles, Kaiden Unavailable Unavailable Boles, Kaiden Unavailable Unavailable Boles, Kaiden Unavailable Unavailable Boles, Kaiden Unavailable Unavailable Boles, Kaiden Unavailable Unavailable Boles, Kaiden Unavailable Unavailable Boles, Kaiden Unavailable Unavailable Boles, Kaiden Unavailable Unavailable Boles, Kaiden Unavailable Unavailable Boles, Kaiden Unavailable Unavailable Boles, Kaiden Unavailable Unavailable Boles, Kaiden Unavailable Unavailable Boles, Kaiden Unavailable Unavailable Boles, Kaiden Unavailable Unavailable Boles, Kaiden Unavailable Unavailable Boles, Kaiden Unavailable Unavailable Boles, Kaiden Unavailable Unavailable Boles, Kaiden Unavailable Unavailable Boles, Kaiden Unavailable Unavailable Boles, Kaiden Unavailable Unavailable Boles, Kaiden Unavailable Unavailable Boles, Kaiden Unavailable Unavailable Boles, Kaiden Unavailable Unavailable Boles, Kaiden Unavailable Unavailable Boles, Kaiden Unavailable Unavailable Boles, Kaiden Unavailable Unavailable Boles, Kaiden Unavailable Unavailable CHROSTOWSKI, BHARATH MD Unavailable Unavailable CHROSTOWSKI, BHARATH MD Unavailable Unavailable CHROSTOWSKI, BHARATH MD Unavailable Unavailable CHROSTOWSKI, BHARATH MD Unavailable Unavailable CHROSTOWSKI, BHARATH MD Unavailable Unavailable CHROSTOWSKI, BHARATH MD Unavailable Unavailable CHROSTOWSKI, BHARATH MD Unavailable Unavailable CHROSTOWSKI, BHARATH MD Unavailable Unavailable CHROSTOWSKI, BHARATH MD Unavailable Unavailable CHROSTOWSKI, BHARATH MD Unavailable Unavailable CHROSTOWSKI, BHAARTH MD Unavailable Unavailable CHROSTOWSKI, BHARATH MD Unavailable Unavailable CHROSTOWSKI, BHARATH MD Unavailable Unavailable CHROSTOWSKI, BHARATH MD Unavailable Unavailable CHROSTOWSKI, BHARATH MD Unavailable Unavailable CHROSTOWSKI, BHARATH MD Unavailable Unavailable CHROSTOWSKI, BHARATH MD Unavailable Unavailable CHROSTOWSKI, BHARATH MD Unavailable Unavailable CHROSTOWSKI, BHARATH MD Unavailable Unavailable CHROSTOWSKI, BHARATH MD Unavailable Unavailable CHROSTOWSKI, BHARATH MD Unavailable Unavailable CHROSTOWSKI, BHARATH MD Unavailable Unavailable CHROSTOWSKI, BHARATH MD Unavailable Unavailable CHROSTOWSKI, BHARATH MD Unavailable Unavailable CHROSTOWSKI, BHARATH MD Unavailable Unavailable CHROSTOWSKI, BHARATH MD Unavailable Unavailable CHROSTOWSKI, BHARATH MD Unavailable Unavailable CHROSTOWSKI, BHARATH MD Unavailable Unavailable CHROSTOWSKI, BHARATH MD Unavailable Unavailable CHROSTOWSKI, BHARATH MD Unavailable Unavailable CHROSTOWSKI, BHARATH MD Unavailable Unavailable CHROSTOWSKI, BHARATH MD Unavailable Unavailable CHROSTOWSKI, BHARATH MD Unavailable Unavailable CHROSTOWSKI, BHARATH MD Unavailable Unavailable CHROSTOWSKI, BHARATH MD Unavailable Unavailable CHROSTOWSKI, BHARATH MD Unavailable Unavailable CHROSTOWSKI, BHARATH MD Unavailable Unavailable CHROSTOWSKI, BHARATH MD Unavailable Unavailable CHROSTOWSKI, BHARATH MD Unavailable Unavailable DRAZEK, I LILIAN PA Unavailable Unavailable DRAZEK, I LILIAN PA Unavailable Unavailable DRAZEK, I LILIAN PA Unavailable Unavailable DRAZEK, I LILIAN PA Unavailable Unavailable DRAZEK, I LILIAN PA Unavailable Unavailable DRAZEK, I LILIAN PA Unavailable Unavailable DRAZEK, I LILIAN PA Unavailable Unavailable DRAZEK, I LILIAN PA Unavailable Unavailable DRAZEK, I LILIAN PA Unavailable Unavailable DRAZEK, I LILIAN PA Unavailable Unavailable DRAZEK, I LILIAN PA Unavailable Unavailable DRAZEK, I LILIAN PA Unavailable Unavailable DRAZEK, I LILIAN PA Unavailable Unavailable DRAZEK, I LILIAN PA Unavailable Unavailable DRAZEK, I LILIAN PA Unavailable Unavailable DRAZEK, I LILIAN PA Unavailable Unavailable DRAZEK, I LILIAN PA Unavailable Unavailable DRAZEK, I LILIAN PA Unavailable Unavailable DRAZEK, I LILIAN PA Unavailable Unavailable DRAZEK, I LILIAN PA Unavailable Unavailable DRAZEK, I LILIAN PA Unavailable Unavailable DRAZEK, I LILIAN PA Unavailable Unavailable DRAZEK, I LILIAN PA Unavailable Unavailable DRAZEK, I LILIAN PA Unavailable Unavailable DRAZEK, I LILIAN PA Unavailable Unavailable DRAZEK, I LILIAN PA Unavailable Unavailable DRAZEK, I LILIAN PA Unavailable Unavailable DRAZEK, I LILIAN PA Unavailable Unavailable DRAZEK, I LILIAN PA Unavailable Unavailable DRAZEK, I LILIAN PA Unavailable Unavailable Re-disclosure Warning The records that you are about to access may contain information from federally-assisted alcohol or drug abuse programs. If such information is present, then the following federally mandated warning applies: This information has been disclosed to you from records protected by federal confidentiality rules (42 CFR part 2). The federal rules prohibit you from making any further disclosure of this information unless further disclosure is expressly permitted by the written consent of the person to whom it pertains or as otherwise permitted by 42 CFR part 2. A general authorization for the release of medical or other information is NOT sufficient for this purpose. The Federal rules restrict any use of the information to criminally investigate or prosecute any alcohol or drug abuse patient.The records that you are about to access may contain highly sensitive health information, the redisclosure of which is protected by Article 27-F of the [facility] Public Health law. If you continue you may have access to information: Regarding HIV / AIDS; Provided by facilities licensed or operated by the [facility] Office of Mental Health; or Provided by the [facility] Office for People With Developmental Disabilities. If such information is present, then the following [facility] mandated warning applies: This information has been disclosed to you from confidential records which are protected by state law. State law prohibits you from making any further disclosure of this information without the specific written consent of the person to whom it pertains, or as otherwise permitted by law. Any unauthorized further disclosure in violation of state law may result in a fine or halfway sentence or both. A general authorization for the release of medical or other information is NOT sufficient authorization for further disc losure. Family History Family Member Name Family Member Gender Family Member Status Date o f Status Description Data Source(s) Unknown Male Problem [facility] ([facility]) Unknown Male Problem [facility] ([facility]) Unknown Unknown Problem [facility] ([facility], ) Unknown Unknown Problem MED[facility] ([facility], ) Unknown Unknown Problem MED[facility] ([facility], ) Encounters Encounter Providers Location Date Indications Data Source(s ) Outpatient Attender: LILIAN BHANDARI Physical Therapy 07/17/2021 0 2:45:00 PM EDT [facility] ([facility] ) Outpatient Attender: BHARATH ROTH MD Main Office 07/03/2021 02:45:00 PM EDT [facility] ([facility] Unknown [address] [address] 07/02/2021 12:00:00 AM EDT [facility]CW1 ([facility]) Unknown [address] [address] 07/02/2021 12:00:00 AM EDT [facility]CW1 ([facility]) Unknown [address] [facility] [address] [place] [address] 06/11/2021 12:00:00 AM EDT [facility]CW1 ([facility]) [place] [address] [facility] [address] [place] [address] 06/05/2021 12:00:00 AM EDT eCW1 ([facility]) Outpatient Attender: LILIAN BHANDARI Physical Therapy 05/29/2021 0 2:30:00 PM EDT [facility] ([facility] ) [place] [address] [facility] [place] [address] 05/28/2021 12:00:00 AM EDT [facility] [place]) Outpatient [address] [place] [address] 05/27/2021 12:00:00 AM EDT eCW1 ([facility]) Outpatient Attender: BHARATH ROTH MD Main Office 05/16/2021 02:30:00 PM EDT [facility] ([facility] [place] [address] [facility] [place] [address] 04/26/2021 12:00:00 AM EDT eCW1 ([facility]) Office Visit Attender: LILIAN BHANDARI Physical Therapy 2020 02:20:00 PM EDT [facility] ([facility]) [place] [address] [facility] [place] [address] 04/04/2021 12:00:00 AM EDT eCW1 ([facility]) [place] [address] [facility] [place] [address] 03/27/2021 12:00:00 AM EDT eCW1 ([facility]) [place] [address] [facility] [place] [address] 03/25/2021 12:00:00 AM EDT eCW1 ([facility]) [place] [address] [facility] [place] [address] 03/21/2021 12:00:00 AM EDT eCW1 ([facility]) [place] [address] [facility] [place] [address] 03/20/2021 12:00:00 AM EDT eCW1 ([facility]) Outpatient [address] [facility] [place] [address] 03/19/2021 12:00:00 AM EDT eCW1 ([facility]) [place] [address] [facility] [address] 02/28/2021 12:00:00 AM EDT eCW1 ([facility]) Outpatient Attender: Kaiden Boles Physical Therapy 02/13/2021 01:00:0 0 PM EDT [facility] ([facility]) Unknown [address] [facility] [place] [address] 01/24/2021 12:00:00 AM EDT eCW1 ([facility]) Unknown [address] [facility] [address] 10/09/2020 12:00:00 AM EST eCW1 ([facility]) [place] [address] [facility] [place] [address] 09/26/2020 12:00:00 AM EST eCW1 (Critical [facility] hospital) [place] [address] [facility] [place] [address] 07/20/2020 12:00:00 AM EST eCW1 (Critical access hospital) Unknown [address] [facility] [place] [address] 06/26/2020 12:00:00 AM EDT eCW1 (Critical access hospital) Immunizations Vaccine Date Status Description Data Source(s) VARICELLA-ZOSTER GE/AS01B/PF 07/04/2021 12:00:00 AM EDT completed [facility] COVID-19 VACCINE, MRNA-1273, LNP-S (MODERNA)/PF 11/07/2020 1 2:00:00 AM EST completed [facility] COVID-19 VACCINE Moderna 11/06/2020 12:00:00 AM EST completed [facility] Vaccine Series Complete: YESThis Data wa s Submitted to [facility] Via [facility]. COVID-19 VACCINE Moderna 10/10/2020 12:00:00 AM EST completed [facility] Vaccine Series Complete: NOThis Data was Submitted to [facility] Via [employer]. COVID-19 VACCINE, MRNA-1273, LNP-S (MODERNA)/PF 10/10/2020 1 2:00:00 AM EST completed [facility] INFLUENZA VACCINE QUADRIVALENT (65 YR UP)/MF59 C.1/PF 07/09/2020 12:00:00 AM EDT completed [facility] Medications Medication Brand Name Start Date Product Form Dose Route Admi nistrative Instructions Pharmacy Instructions Status Indications Reaction Description Data Source(s) 240 mcg/0.7 mL 07/04/2021 12:00:00 AM EDT syringe 0 INJECT PER STANDING ORDER INJECT PER STANDING ORDER SOLD: 07/04/2021 [facility] 5 mg 07/02/2021 12:00:00 AM EDT tablet 60 TAKE ONE TABLET BY MOUTH TWO TIMES A DAY TAKE ONE TABLET BY MOUTH TWO TIMES A DAY SOLD: 07/02/2021 [facility] 5 mg 07/02/2021 12:00:00 AM EDT tablet 30 TAKE ONE TABLET BY MOUTH EVERY DAY TAKE ONE TABLET BY MOUTH EVERY DAY SOLD: 07/02/2021 [facility] 100 unit/mL (75-25) 06/27/2021 12:00:00 AM EDT insulin pen 1 5 INJECT 25 UNITS SUBCUTANEOUSLY TWO TIMES A DAY INJECT 25 UNITS SUBCUTANEOUSLY TWO TIMES A DAY SOLD: 06/28/2021 [facility] 5 mg 06/10/2021 12:00:00 AM EDT tablet 60 TAKE ONE TABLET BY MOUTH TWICE A DAY FOR ANGIOEDEMA TAKE ONE TABLET BY MOUTH TWICE A DAY FOR ANGIOEDEMA SO LD: 06/12/2021 [facility] Famotidine 20 MG Oral Tablet FAMOTIDINE 06/08/2021 12:00:00 AM EDT tab let 30 TAKE ONE TABLET BY MOUTH EVERY EVENING DIRECTED TAKE ONE TABLET BY MOUTH EVERY EVENING DIRECTED SOLD: 06/12/2021 [facility] 100 mcg 06/05/2021 12:00:00 AM EDT tablet 30 TAKE ONE TABLET BY MOUTH EVERY MORNING ON AN EMPTY STOMACH TAKE ONE TABLET BY MOUTH EVERY MORNING O N AN EMPTY STOMACH SOLD: 06/05/2021 [facility] 5 mg 06/05/2021 12:00:00 AM EDT tablet 30 TAKE ONE TABLET BY MOUTH ONCE A DAY TAKE ONE TABLET BY MOUTH ONCE A DAY SOLD: 06/05/2021 [facility] 100 mcg 06/05/2021 12:00:00 AM EDT tablet 30 TAKE ONE TABLET BY MOUTH EVERY MORNING ON AN EMPTY STOMACH TAKE ONE TABLET BY MOUTH EVERY MORNING O N AN EMPTY STOMACH SOLD: 07/02/2021 [facility] 100 unit/mL (75-25) 05/22/2021 12:00:00 AM EDT insulin pen 1 5 INJECT 25 UNITS UNDER THE SKIN TWO TIMES A DAY INJECT 25 UNITS UNDER THE SKIN TWO TIMES A DAY SOLD: 05/23/2021 [facility] Famotidine 20 MG Oral Tablet FAMOTIDINE 05/17/2021 12:00:00 AM EDT tab let 30 TAKE ONE TABLET BY MOUTH EVERY EVENING TAKE ONE TABLET BY MOUTH EVERY EVENING SOLD: 05/17/2021 [facility] 25 mg 05/17/2021 12:00:00 AM EDT tablet 120 TAKE TWO TABLETS BY MOUTH EVERY DAY AT LUNCH AND EVERY 4-6 HOURS NEEDED FOR FLARES OF ANGIODEMA TAKE TWO TABLETS BY MOUTH EVERY DAY AT LUNCH AND EVERY 4-6 HOURS NEEDED FOR FLARES OF ANGIODEMA SOLD: 06/12/2021 [facility] 5 mg 05/17/2021 12:00:00 AM EDT tablet 60 TAKE ONE TABLET BY MOUTH TWICE A DAY FOR ANGIOEDEMA TAKE ONE TABLET BY MOUTH TWICE A DAY FOR ANGIOEDEMA SO LD: 05/17/2021 [facility] 25 mg 05/17/2021 12:00:00 AM EDT tablet 120 TAKE TWO TABLETS BY MOUTH EVERY DAY AT LUNCH AND EVERY 4-6 HOURS NEEDED FOR FLARES OF ANGIODEMA TAKE TWO TABLETS BY MOUTH EVERY DAY AT LUNCH AND EVERY 4-6 HOURS NEEDED FOR FLARES OF ANGIODEMA SOLD: 05/17/2021 [facility] Famotidine 20 MG Oral Tablet Famotidine 05/16/2021 12:00:00 AM EDT ORAL active [facility] ([facility]) Hydroxyzine Hydrochloride 25 MG Oral Tablet Hydroxyzine HCL 05/16/2021 12:00:00 AM EDT ORAL active [facility] ([facility] levocetirizine dihydrochloride 5 MG Oral Tablet Levocetirizi ne Dihydrochloride 05/16/2021 12:00:00 AM EDT ORAL active [facility] ([facility]) 5 mg 04/30/2021 12:00:00 AM EDT tablet 30 TAKE ONE TABLET BY MOUTH EVERY DAY TAKE ONE TABLET BY MOUTH EVERY DAY SOLD: 05/02/2021 [facility] 100 unit/mL (75-25) 04/24/2021 12:00:00 AM EDT insulin pen 1 5 INJECT 25 UNITS SUBCUTANEOUSLY TWO TIMES A DAY INJECT 25 UNITS SUBCUTANEOUSLY TWO TIMES A DAY SOLD: 04/26/2021 [facility] 5 mg 04/04/2021 12:00:00 AM EDT tablet 180 TAKE ONE TABLET BY MOUTH TWICE A DAY TAKE ONE TABLET BY MOUTH TWICE A DAY SOLD: 04/04/2021 [facility] 5 mg 04/04/2021 12:00:00 AM EDT tablet 30 TAKE ONE TABLET BY MOUTH EVERY DAY TAKE ONE TABLET BY MOUTH EVERY DAY SOLD: 04/04/2021 [facility] 100 mcg 04/04/2021 12:00:00 AM EDT tablet 30 TAKE ONE TABLET BY MOUTH EVERY MORNING ON AN EMPTY STOMACH TAKE ONE TABLET BY MOUTH EVERY MORNING O N AN EMPTY STOMACH SOLD: 04/04/2021 [facility] 100 mcg 04/04/2021 12:00:00 AM EDT tablet 30 TAKE ONE TABLET BY MOUTH EVERY MORNING ON AN EMPTY STOMACH TAKE ONE TABLET BY MOUTH EVERY MORNING O N AN EMPTY STOMACH SOLD: 05/02/2021 [facility] 100 unit/mL (75-25) 03/27/2021 12:00:00 AM EDT insulin pen 1 5 INJECT 25 UNITS UNDER THE SKIN TWO TIMES A DAY INJECT 25 UNITS UNDER THE SKIN TWO TIMES A DAY SOLD: 03/28/2021 [facility] 4 mg 03/01/2021 12:00:00 AM EDT capsule,extended releas e 24hr 90 TAKE ONE CAPSULE BY MOUTH ONCE DAILY TAKE ONE CAPSULE BY MOUTH ONCE DAILY SOLD: 03/01/2021 [facility] 4 mg 03/01/2021 12:00:00 AM EDT capsule,extended releas e 24hr 90 TAKE ONE CAPSULE BY MOUTH ONCE DAILY TAKE ONE CAPSULE BY MOUTH ONCE DAILY SOLD: 05/23/2021 [facility] 5 mg 02/26/2021 12:00:00 AM EDT tablet 30 TAKE ONE TABLET BY MOUTH EVERY DAY TAKE ONE TABLET BY MOUTH EVERY DAY SOLD: 03/01/2021 [facility] 31 gauge x 5/16" 02/12/2021 12:00:00 AM EDT needle 200 USE DIRECTED USE DIRECTED SOLD: 02/12/2021 [facility] 31 gauge x 5/16" 02/12/2021 12:00:00 AM EDT needle 200 USE DIRECTED USE DIRECTED SOLD: 06/21/2021 [facility] 2 mg 01/28/2021 12:00:00 AM EDT capsule,extended releas e 24hr 30 TAKE ONE CAPSULE BY MOUTH DAILY TAKE ONE CAPSULE BY MOUTH DAILY SOLD: 01/29/2021 [facility] 5 mg 01/28/2021 12:00:00 AM EDT tablet 30 TAKE ONE TABLET BY MOUTH EVERY DAY TAKE ONE TABLET BY MOUTH EVERY DAY SOLD: 01/29/2021 [facility] 5 mg 01/05/2021 12:00:00 AM EDT tablet 180 TAKE ONE TABLET BY MOUTH TWICE A DAY TAKE ONE TABLET BY MOUTH TWICE A DAY SOLD: 01/06/2021 [facility] 100 mcg 12/31/2020 12:00:00 AM EDT tablet 30 TAKE ONE TABLET BY MOUTH EVERY MORNING ON AN EMPTY STOMACH TAKE ONE TABLET BY MOUTH EVERY MORNING O N AN EMPTY STOMACH SOLD: 02/02/2021 [facility] 5 mg 12/31/2020 12:00:00 AM EDT tablet 30 TAKE ONE TABLET BY MOUTH EVERY DAY TAKE ONE TABLET BY MOUTH EVERY DAY SOLD: 01/06/2021 [facility] 100 mcg 12/31/2020 12:00:00 AM EDT tablet 30 TAKE ONE TABLET BY MOUTH EVERY MORNING ON AN EMPTY STOMACH TAKE ONE TABLET BY MOUTH EVERY MORNING O N AN EMPTY STOMACH SOLD: 01/06/2021 [facility] 3 ML Insulin Lispro 25 UNT/ML / Insulin, Protamine Lispro, Human 75 UNT/ML Pen Injector [Humalog Mix] 100 unit/mL (75-25) INSULIN LISPRO PROTAMIN/LISPRO 12/13/2020 12:00:00 AM EDT insulin pen 15 INJEC T 25 UNITS UNDER THE SKIN TWO TIMES A DAY INJECT 25 UNITS UNDER THE SKIN TWO TIMES A DAY SOLD: 02/21/2021 [facility] 100 unit/mL (75-25) 12/13/2020 12:00:00 AM EDT insulin pen 1 5 INJECT 25 UNITS UNDER THE SKIN TWO TIMES A DAY INJECT 25 UNITS UNDER THE SKIN TWO TIMES A DAY SOLD: 12/17/2020 [facility] 3 ML Insulin Lispro 25 UNT/ML / Insulin, Protamine Lispro, Human 75 UNT/ML Pen Injector [Humalog Mix] 100 unit/mL (75-25) INSULIN LISPRO PROTAMIN/LISPRO 12/13/2020 12:00:00 AM EDT insulin pen 15 INJEC T 25 UNITS UNDER THE SKIN TWO TIMES A DAY INJECT 25 UNITS UNDER THE SKIN TWO TIMES A DAY SOLD: 01/14/2021 [facility] 5 mg 12/01/2020 12:00:00 AM EDT tablet 30 TAKE ONE TABLET BY MOUTH EVERY DAY TAKE ONE TABLET BY MOUTH EVERY DAY SOLD: 12/06/2020 [facility] 100 mg 11/24/2020 12:00:00 AM EST tablet 30 TAKE ONE TABLET BY MOUTH EVERY DAY TAKE ONE TABLET BY MOUTH EVERY DAY SOLD: 05/23/2021 [facility] 100 mg 11/24/2020 12:00:00 AM EST tablet 30 TAKE ONE TABLET BY MOUTH EVERY DAY TAKE ONE TABLET BY MOUTH EVERY DAY SOLD: 03/26/2021 [facility] 100 mg 11/24/2020 12:00:00 AM EST tablet 30 TAKE ONE TABLET BY MOUTH EVERY DAY TAKE ONE TABLET BY MOUTH EVERY DAY SOLD: 02/21/2021 [facility] 100 mg 11/24/2020 12:00:00 AM EST tablet 30 TAKE ONE TABLET BY MOUTH EVERY DAY TAKE ONE TABLET BY MOUTH EVERY DAY SOLD: 04/22/2021 [facility] 100 mg 11/24/2020 12:00:00 AM EST tablet 45 TAKE ONE TABLET BY MOUTH EVERY DAY TAKE ONE TABLET BY MOUTH EVERY DAY SOLD: 06/21/2021 [facility] 100 mg 11/24/2020 12:00:00 AM EST tablet 90 TAKE ONE TABLET BY MOUTH EVERY DAY TAKE ONE TABLET BY MOUTH EVERY DAY SOLD: 11/26/2020 [facility] 100 unit/mL (75-25) 11/17/2020 12:00:00 AM EST insulin pen 1 5 INJECT 25 UNITS UNDER THE SKIN TWO TIMES A DAY INJECT 25 UNITS UNDER THE SKIN TWO TIMES A DAY SOLD: 11/19/2020 [facility] 10-6.25 mg 11/06/2020 12:00:00 AM EST tablet 90 TAKE ONE TABLET BY MOUTH EVERY DAY TAKE ONE TABLET BY MOUTH EVERY DAY SOLD: 01/29/2021 [facility] 10-6.25 mg 11/06/2020 12:00:00 AM EST tablet 90 TAKE ONE TABLET BY MOUTH EVERY DAY TAKE ONE TABLET BY MOUTH EVERY DAY SOLD: 11/07/2020 [facility] 10-6.25 mg 11/06/2020 12:00:00 AM EST tablet 90 TAKE ONE TABLET BY MOUTH EVERY DAY TAKE ONE TABLET BY MOUTH EVERY DAY SOLD: 05/03/2021 [facility] Potassium Chloride 10 MEQ Extended Release Oral Tablet POTAS SIUM CHLORIDE 10/30/2020 12:00:00 AM EST tablet extended release 180 TAKE ONE TABLET BY MOUTH TWICE A DAY WITH FOOD TAKE ONE TABLET BY MOUTH TWICE A DAY WITH FOOD SOLD: 05/02/2021 [facility] Potassium Chloride 10 MEQ Extended Release Oral Tablet POTAS SIUM CHLORIDE 10/30/2020 12:00:00 AM EST tablet extended release 180 TAKE ONE TABLET BY MOUTH TWICE A DAY WITH FOOD TAKE ONE TABLET BY MOUTH TWICE A DAY WITH FOOD SOLD: 11/03/2020 [facility] 5 mg 10/30/2020 12:00:00 AM EST tablet 30 TAKE ONE TABLET BY MOUTH EVERY DAY TAKE ONE TABLET BY MOUTH EVERY DAY SOLD: 11/03/2020 [facility] Potassium Chloride 10 MEQ Extended Release Oral Tablet POTAS SIUM CHLORIDE 10/30/2020 12:00:00 AM EST tablet extended release 180 TAKE ONE TABLET BY MOUTH TWICE A DAY WITH FOOD TAKE ONE TABLET BY MOUTH TWICE A DAY WITH FOOD SOLD: 01/29/2021 [facility] 20 mg 10/10/2020 12:00:00 AM EST tablet 10 TAKE ONE TABLET BY MOUTH TWICE A DAY FOR 5 DAYS TAKE ONE TABLET BY MOUTH TWICE A DAY FOR 5 DAYS SOLD: 2020 [facility] 20 mg 10/10/2020 12:00:00 AM EST tablet 10 TAKE ONE TABLET BY MOUTH TWICE A DAY FOR 5 DAYS TAKE ONE TABLET BY MOUTH TWICE A DAY FOR 5 DAYS SOLD: 2020 [facility] 5 mg 10/09/2020 12:00:00 AM EST tablet 30 TAKE ONE TABLET BY MOUTH TWICE A DAY ( ONCE IN THE MORNING AND ONCE AT BEDTIME ) TAKE ONE TABLET BY MOUTH TWICE A DAY ( ONCE IN THE MORNING AND ONCE AT BEDTIME ) SOLD: 10/10/2020 [facility] 25 mg 10/09/2020 12:00:00 AM EST tablet 60 TAKE TWO TABLETS BY MOUTH EVERY DAY AT LUNCH TAKE TWO TABLETS BY MOUTH EVERY DAY AT LUNCH SOLD: 10/10/2020 [facility] 0.3 mg/0.3 mL 10/09/2020 12:00:00 AM EST auto-injector 2 INJECT INTRAMUSCULARLY ONCE NEEDED FOR ANAPHYLAXIS INJECT INTRAMUSCULARLY ONCE NEEDED FOR ANAPHYLAXIS SOLD: 10/10/2020 [facility] Famotidine 20 MG Oral Tablet FAMOTIDINE 10/09/2020 12:00:00 AM EST tab let 30 TAKE ONE TABLET BY MOUTH EVERY EVENING TAKE ONE TABLET BY MOUTH EVERY EVENING SOLD: 10/10/2020 [facility] Epinephrine Epinephrine 10/09/2020 12:00:00 AM EST active [facility] ([facility]) 100 mcg 09/26/2020 12:00:00 AM EST tablet 30 TAKE ONE TABLET BY MOUTH EVERY MORNING ON AN EMPTY STOMACH TAKE ONE TABLET BY MOUTH EVERY MORNING O N AN EMPTY STOMACH SOLD: 12/06/2020 [facility] 100 mcg 09/26/2020 12:00:00 AM EST tablet 30 TAKE ONE TABLET BY MOUTH EVERY MORNING ON AN EMPTY STOMACH TAKE ONE TABLET BY MOUTH EVERY MORNING O N AN EMPTY STOMACH SOLD: 09/28/2020 [facility] 100 mcg 09/26/2020 12:00:00 AM EST tablet 30 TAKE ONE TABLET BY MOUTH EVERY MORNING ON AN EMPTY STOMACH TAKE ONE TABLET BY MOUTH EVERY MORNING O N AN EMPTY STOMACH SOLD: 11/03/2020 [facility] 5 mg 08/28/2020 12:00:00 AM EST tablet 30 TAKE ONE TABLET BY MOUTH EVERY DAY TAKE ONE TABLET BY MOUTH EVERY DAY SOLD: 09/28/2020 [facility] 5 mg 08/28/2020 12:00:00 AM EST tablet 30 TAKE ONE TABLET BY MOUTH EVERY DAY TAKE ONE TABLET BY MOUTH EVERY DAY SOLD: 08/29/2020 [facility] 100 unit/mL (75-25) 07/16/2020 12:00:00 AM EST insulin pen 1 5 INJECT 25 UNITS UNDER THE SKIN TWO TIMES A DAY INJECT 25 UNITS UNDER THE SKIN TWO TIMES A DAY SOLD: 09/24/2020 [facility] 100 unit/mL (75-25) 07/16/2020 12:00:00 AM EST insulin pen 1 5 INJECT 25 UNITS UNDER THE SKIN TWO TIMES A DAY INJECT 25 UNITS UNDER THE SKIN TWO TIMES A DAY SOLD: 08/20/2020 [facility] 100 unit/mL (75-25) 07/16/2020 12:00:00 AM EST insulin pen 1 5 INJECT 25 UNITS UNDER THE SKIN TWO TIMES A DAY INJECT 25 UNITS UNDER THE SKIN TWO TIMES A DAY SOLD: 10/19/2020 [facility] 5 mg 06/27/2020 12:00:00 AM EDT tablet 180 TAKE ONE TABLET BY MOUTH TWICE A DAY TAKE ONE TABLET BY MOUTH TWICE A DAY SOLD: 06/28/2020 [facility] 5 mg 06/27/2020 12:00:00 AM EDT tablet 180 TAKE ONE TABLET BY MOUTH TWICE A DAY TAKE ONE TABLET BY MOUTH TWICE A DAY SOLD: 10/02/2020 [facility] 5 mg 05/31/2020 12:00:00 AM EDT tablet 30 TAKE ONE TABLET BY MOUTH EVERY DAY TAKE ONE TABLET BY MOUTH EVERY DAY SOLD: 05/31/2020 [facility] 5 mg 05/31/2020 12:00:00 AM EDT tablet 30 TAKE ONE TABLET BY MOUTH EVERY DAY TAKE ONE TABLET BY MOUTH EVERY DAY SOLD: 06/28/2020 [facility] 5 mg 05/31/2020 12:00:00 AM EDT tablet 30 TAKE ONE TABLET BY MOUTH EVERY DAY TAKE ONE TABLET BY MOUTH EVERY DAY SOLD: 08/02/2020 [facility] 100 mcg 05/28/2020 12:00:00 AM EDT tablet 30 TAKE 1 TABLET BY MOUTH ONCE IN THE MORNING ON AN EMPTY STOMACH TAKE 1 TABLET BY MOUTH ONCE IN THE MORNI NG ON AN EMPTY STOMACH SOLD: 05/31/2020 [facility] 100 mcg 05/28/2020 12:00:00 AM EDT tablet 30 TAKE 1 TABLET BY MOUTH ONCE IN THE MORNING ON AN EMPTY STOMACH TAKE 1 TABLET BY MOUTH ONCE IN THE MORNI NG ON AN EMPTY STOMACH SOLD: 07/02/2020 [facility] 100 mcg 05/28/2020 12:00:00 AM EDT tablet 30 TAKE 1 TABLET BY MOUTH ONCE IN THE MORNING ON AN EMPTY STOMACH TAKE 1 TABLET BY MOUTH ONCE IN THE MORNI NG ON AN EMPTY STOMACH SOLD: 09/03/2020 [facility] 100 mcg 05/28/2020 12:00:00 AM EDT tablet 30 TAKE 1 TABLET BY MOUTH ONCE IN THE MORNING ON AN EMPTY STOMACH TAKE 1 TABLET BY MOUTH ONCE IN THE MORNI NG ON AN EMPTY STOMACH SOLD: 08/02/2020 [facility] 100 unit/mL (75-25) 02/21/2020 12:00:00 AM EDT insulin pen 1 5 INJECT 25 UNITS UNDER THE SKIN TWO TIMES A DAY INJECT 25 UNITS UNDER THE SKIN TWO TIMES A DAY SOLD: 06/18/2020 [facility] 31 gauge x 5/16" 12/19/2019 12:00:00 AM EDT needle 200 USE DIRECTED USE DIRECTED SOLD: 10/12/2020 [facility] 4 mg 12/13/2019 12:00:00 AM EDT capsule,extended releas e 24hr 90 TAKE ONE CAPSULE BY MOUTH EVERY DAY TAKE ONE CAPSULE BY MOUTH EVERY DAY SOLD: 10/02/2020 [facility] 4 mg 12/13/2019 12:00:00 AM EDT capsule,extended releas e 24hr 90 TAKE ONE CAPSULE BY MOUTH EVERY DAY TAKE ONE CAPSULE BY MOUTH EVERY DAY SOLD: 07/02/2020 [facility] 10-6.25 mg 11/16/2019 12:00:00 AM EST tablet 90 TAKE ONE TABLET BY MOUTH EVERY DAY TAKE ONE TABLET BY MOUTH EVERY DAY SOLD: 08/13/2020 [facility] Potassium Chloride 10 MEQ Extended Release Oral Tablet POTAS SIUM CHLORIDE 10/21/2019 12:00:00 AM EST tablet extended release 180 TAKE ONE TABLET BY MOUTH TWICE A DAY WITH FOOD TAKE ONE TABLET BY MOUTH TWICE A DAY WITH FOOD SOLD: 08/02/2020 [facility] 100 mg 10/21/2019 12:00:00 AM EST tablet 90 TAKE ONE TABLET BY MOUTH EVERY DAY TAKE ONE TABLET BY MOUTH EVERY DAY SOLD: 08/20/2020 [facility] 20 mg 07/04/2019 12:00:00 AM EDT tablet 10 TAKE ONE TABLET BY MOUTH TWO TIMES A DAY FOR 5 DAYS TAKE ONE TABLET BY MOUTH TWO TIMES A DAY FOR 5 DAYS SO LD: 05/31/2020 [facility] Insurance Providers Payer name Policy type / Coverage type Policy ID Covered republican ID Covered republican's relationship to renee Policy Renee Plan Information [employer] [id number] SP [id number] [employer] [id number] SP [id number] [employer] [id number] SP [id number] [employer] [id number] SP [id number] [employer] () Workers Compensation [id number] Self B [employer] () Workers Compensation [id number] Self B [employer] (WC) Workers Compensation BR [id number] Self B [employer] (WC) Workers Compensation BR 2.16.840.1.64[id number] Self [id number] [employer] (WC) Workers Compensation [id number] 2.16.840.1.430157.3.227.99.991.36685.0 Self [id number] [employer] (WC) Workers Compensation [id number] 2.16.840.1.762150.3.227.99.991.37912.0 Self [id number] [employer] (WC) Workers Compensation [id number] 2.16.840.1.515955.3.227.99.991.29834.0 Self [id number] [employer] (WC) Workers Compensation BRW--0250 2.16.840.1.857280.3.227.99.991.52904.0 Self [id number] [employer] (WC) Workers Compensation BRW--0250 2.16.840.1.549532.3.227.99.991.32786.0 Self [id number] [employer] (WC) Workers Compensation [id number] 2.16.840.1.759723.3.227.99.991.30515.0 Self [id number] [employer] (WC) Workers Compensation [id number] 2.16.840.1.581880.3.227.99.991.08054.0 Self [id number] [employer] (WC) Workers Compensation [id number] 2.16.840.1.229509.3.227.99.991.44035.0 Self [id number] [employer] (WC) Workers Compensation [id number] 2.16.840.1.024298.3.227.99.991.69019.0 Self [id number] [employer] (WC) Workers Compensation [id number] 2.16.840.1.958244.3.227.99.991.39704.0 Self B [id number] [employer] (WC) Workers Compensation [id number] Self [employer] (pr) Medigap Part B [id number] Self [id number] [employer] (pr) Medigap Part B [id number] 2.0.1.796980.3.227.99.991.1 1143.0 Self [id number] MEDICARE [id number] SP [id number] A Medicare Natl Govt Serv Medicare Primary [id number] 2.0.1.674439.3.227.99.4595.82582.0 Self [id number] Medicare Natl Govt Serv Medicare Primary [id number] Self Medicare Natl Govt Servic Medicare Primary [id number] 2.0.1.242635.3.227.99.4595.63233.0 Self [id number] Medicare Natl Govt Servic Medicare Primary [id number] 2.840.1.827955.3.227.99.4595.92628.0 Self [id number] Medicare Natl Govt Servic Medicare Primary [id number] Self [id number] Medicare Natl Govt Servic Medicare Primary [id number] 2.840.1.626231.3.227.99.4595.27654.0 Self [id number] [place] [id number] 2.840.1.499083.3.227.99.991.56507.0 Self 6 [id number] [place] Primary [id number] 2.840.1.052556.3.227.99.991.48352.0 Self 0 [id number] [place] Primary [id number] 2.16.840.1.197264.3.227.99.991.39930.0 Self 6 [id number] [place] Medicare Primary [id number] 2.16.840.1.649665.3.227.99.991.34305.0 Self 0 [id number] [place] Medicare Primary [id number] 2.16.840.1.734843.3.227.99.991.61185.0 Self 0 [id number] [place] Primary [id number] 2.16.840.1.693858.3.227.99.991.98099.0 Self 6 [id number] [place] Medicare Primary [id number] 2.16.840.1.120154.3.227.99.991.89670.0 Self 0 [id number] [place] Medicare Primary [id number] 2.16.840.1.391468.3.227.99.991.09739.0 Self 0 [id number] [place] Medicare Primary [id number] 2.16.840.1.109930.3.227.99.991.31558.0 Self 0 [id number] [place] Medicare Primary [id number] 2.16.840.1.559916.3.227.99.991.54705.0 Self 6 [id number] [place] Primary [id number] Self [id number] [place] Medicare Primary [id number] 2.16.840.1.039440.3.227.99.991.93443.0 Self 0 [id number] [place] Medicare Primary [id number] 2.16.840.1.521494.3.227.99.991.39943.0 Self 0 [id number] MEDICARE [id number] SP [id number] T91 MEDICARE [id number] SP [id number] [facility] (pr) Medigap Part B [id number] 2.16.840.1.752743.3.227.99.991.1114 3.0 Self [id number] [facility] (pr) Medigap Part B [id number] 2.16.840.1.256766.3.227.99.991.15288.0 Self [id number] Umr (pr) Medigap Part B [id number] 2.16.840.1.109615.3.227.99.991.1114 3.0 Self [id number] Umr ([place] [employer]) Medigap Part B [id number] Self [id number] Umr (pr) Medigap Part B [id number] 2.16.840.1.541580.3.227.99.991.1114 3.0 Self [id number] Umr (pr) Medigap Part B [id number] Self [id number] Umr (pr) Medigap Part B [id number] 2.16.840.1.328026.3.227.99.991.1114 3.0 Self [id number] Umr (pr) Medigap Part B [id number] 2.16.840.1.162179.3.227.99.991.32888.0 Self [id number] MEDICARE [id number] SP [id number] T91 UMR [facility] [id number] SP [id number] UMR [facility] [id number] SP [id number] R [facility] [id number] SP [id number] UMR O [id number] S [id number] MEDICARE C [id number] S [id number] T91 UMR [facility] [id number] SP [id number] [employer] [place] Other 0 [id number] Self 0 Medicare Part B [facility] Other 0 [id number] Self 0 [employer] [place] Other 0 [id number] Self 0 Medicare Part B [facility] Other 0 [id number] Self 0 UMR 2.16.840.1.694127.3.441 [id number] 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 2..840.1.474780.3.441 Medicare 2.0.1.486983.3.441 [id number] Medicare Part B 2.840.1.100688.3.441 MEDICARE [id number] SP [id number] A Medicare Natl Govt Servic Medicare Primary [id number] Self [id number] [employer] (Old) Medigap Part B [id number] Self [id number] Medicare Natl Govt Servic Medicare Primary [id number] 2.840.1.944490.3.227.99.4595.06705.0 Self [id number] [employer] (Old) Medigap Part B [id number] 2.840.1.96138 3.3.227.99.4595.15939.0 Self [id number] Medicare Natl Govt Servic Medicare Primary [id number] 2..840.1.616427.3.227.99.4595.09514.0 Self [id number] [employer] (Old) Medigap Part B [id number] 2.16.840.1.01736 3.3.227.99.4595.13123.0 Self [id number] [employer] [id number] SP [id number] Medicare Natl Govt Serv Medicare Primary [id number] 2.16.840.1.044304.3.227.99.4595.06303.0 Self [id number] [employer] (Old) Medigap Part B [id number] 2.16.840.1.18232 3.3.227.99.4595.82062.0 Self [id number] Medicare Natl Govt Serv Medicare Primary [id number] 2.16.840.1.459514.3.227.99.4595.86435.0 Self [id number] Umr [employer] (Before 01/12/18) Medigap Part B [id number] 2.16.840.1.051900.3.227.99.4595.99000.0 Self [id number] [employer] PPO O [id number] S [id number] MEDICARE C [id number] S [id number] A Medicare [facility] Medicare Primary [id number] 2.16.840.1.730811.3.227.99.991.04863.0 Self 0 [id number] [place] Primary [id number] 2.16.840.1.459904.3.227.99.991.68275.0 Self 0 [id number] [employer] Medigap Part B [id number] 2.16.840.1.453943.3.227.99.8646.170 78.0 Self [id number] Medicare [place] Medicare Primary 2.16.840.1.62529 3.3.227.99.8646.74528.0 Self Medicare Natl Govt Servic Medicare Primary [id number] Self Medicare Natl Govt Servic Medicare Primary [id number] Self [employer] Ppo Medigap Part B [id number] Self MEDICARE [id number] SP [id number] T MEDICARE - [place] MCR [id number] S [id number] [employer] PPO S [id number] S [id number] MEDICARE S UNAVAILABLE [id number] S UNAVAILA BLE UMR [facility] [id number] SP [id number] Problems, Conditions, and Diagnoses No Information Surgeries/Procedures Procedure Description Date Indications Data Source(s) OFFICE OUTPATIENT VISIT 40 MINUTES 07/17/2021 12:00:00 AM EDT [facility] ([facility]) OFFICE OUTPATIENT VISIT 15 MINUTES 07/03/2021 12:00:00 AM EDT [facility] ([facility]) Needle electromyography, each extremity, with related paraspinal areas, when performed, done with nerve conduction, amplitude and latency/velocity study; complete, five or more muscles studied, innervated by three or more nerves or four or more spinal levels (list separately in addition to the code for primary procedure). 06/28/2021 12:00:00 AM EDT MEDEN T ([facility] ) 25433 Nerve conduction studies 7-8 studies NEW 201206/28/2021 12:00:00 AM EDT [facility] ([facility]) OFFICE OUTPATIENT VISIT 25 MINUTES 06/28/2021 12:00:00 AM EDT [facility] ([facility]) OFFICE OUTPATIENT VISIT 25 MINUTES 05/29/2021 12:00:00 AM EDT [facility] ([facility]) OFFICE OUTPATIENT VISIT 15 MINUTES 05/16/2021 12:00:00 AM EDT [facility] ([facility]) OFFICE OUTPATIENT VISIT 25 MINUTES 05/16/2021 12:00:00 AM EDT [facility] ([facility]) PHYSICIAN TELEPHONE EVALUATION 5-10 MIN 04/11/2021 12: 00:00 AM EDT [facility] ([facility]) OFFICE OUTPATIENT VISIT 25 MINUTES 04/11/2021 12:00:00 AM EDT [facility] ([facility]) INJECT SI JOINT ARTHRGRPHY&/ANES/STEROID W/IMAGE 03/25 12:00:00 AM EDT [facility] ([facility]) Moderate Sedation Services; Same Phys Intl 15 Mins; PT >= 5 Years 03/25/2021 12:00:00 AM EDT [facility] ([facility]) OFFICE OUTPATIENT VISIT 25 MINUTES 02/13/2021 12:00:00 AM EDT [facility] ([facility]) Results ID Date Data Source [id number] 03/20/2021 12:00:00 AM EDT eCW1 ([facility]) Name Value Range Interpretation Code Description Data Tika rce(s) Supporting Document(s) Hemoglobin A1c/Hemoglobin.total in Blood 7.9 HEMOGLOBIN A1c W1 ([facility]) ID Date Data Source [id number] 03/20/2021 12:00:00 AM EDT eCW1 ([facility]) Name Value Range Interpretation Code Description Data Tika rce(s) Supporting Document(s) Microalbumin/Creatinine [Mass Ratio] in Urine 69.8 CREATININE, URINE eCW1 ([facility]) Albumin/Creatinine [Mass Ratio] in Urine 15.3 MALB URINE SIEMENS eCW1 ([facility]) Microalbumin/Creatinine [Ratio] in Urine 21.9 0.0-30.0 GHAZAL/CREAT RATIO eCW1 ([facility]) ID Date Data Source [id number] 03/20/2021 12:00:00 AM EDT eCW1 ([facility]) Name Value Range Interpretation Code Description Data Tika rce(s) Supporting Document(s) 3.540 0.358-3.740 THYROID STIMULATING HORM ONE eCW1 ([facility]) ID Date Data Source LIPID PANEL (CARDIAC RISK) 03/20/2021 12:00:00 AM EDT eCW1 ( [facility]) Name Value Range Interpretation Code Description Data Tika rce(s) Supporting Document(s) Triglyceride [Mass/volume] in Serum or Plasma by calculation 170 <150 TRIGLYCERIDES LEVEL eC1 ([facility]) Cholesterol [Moles/volume] in Serum or Plasma 140 <200 CHOLESTEROL LEVEL eCW1 ([facility]) Cholesterol in HDL [Moles/volume] in Serum or Plasma 39 >40 HDL CHOLESTEROL eCW1 ([facility]) Cholesterol in LDL [Mass/volume] in Serum or Plasma by calculation 67 <100 LDL CHOLESTEROL eCW1 ([facility]) 101 NON-HDL-C eCW1 ([facility]) 3.589 <5 CHOLESTEROL RISK RATIO eCW1 ([facility]) ID Date Data Source Comprehensive Metabolic Profile (CMP) 03/20/2021 12:00:00 AM EDT eCW1 ([facility]) Name Value Range Interpretation Code Description Data Tika rce(s) Supporting Document(s) 242 70-100 GLUCOSE, FASTING eCW1 ([facility]) 14 7-18 BLOOD UREA NITROGEN eCW1 ([facility]) 0.86 0.55-1.30 CREATININE FOR GFR eCW1 ([facility]) 139 136-145 SODIUM LEVEL eCW1 ([facility]) > 60.0 >39 GLOMERULAR FILTRATION RATE eCW 1 ([facility]) 4.2 3.5-5.1 POTASSIUM SERUM eCW1 ([facility]) 105 98-107 CHLORIDE LEVEL eCW1 ([facility]) 28 21-32 CARBON DIOXIDE LEVEL eCW1 ([facility]) 8.8 8.8-10.2 CALCIUM LEVEL eCW1 ([facility]) 19 7-37 AST/SGOT eCW1 ([facility]) 27 12-78 ALT/SGPT eCW1 ([facility]) 92 45-117 ALKALINE PHOSPHATASE eCW1 ([facility]) 1.2 0.2-1.0 BILIRUBIN,TOTAL eCW1 ([facility]) 7.2 6.4-8.2 TOTAL PROTEIN eCW1 ([facility]) 3.9 3.2-5.2 ALBUMIN eCW1 ([facility]) 1.2 1.2-2.2 ALBUMIN/GLOBULIN RATIO eCW1 ([facility]) ID Date Data Source [id number] 02/14/2021 03:35:00 PM EDT MED[facility] ([facility]) Name Value Range Interpretation Code Description Data Tika rce(s) Supporting Document(s) Laboratory test finding (navigational concept) Laboratory test result [facility] ([facility]) ID Date Data Source [id number] 02/13/2021 02:47:00 PM EDT [facility] ([facility]) Name Value Range Interpretation Code Description Data Tika rce(s) Supporting Document(s) Prothrombin Time 13.2 s 12.5-14.3 [facility] ([facility]) Partial Thromboplastin Time 31.6 s 24.2-38.5 [facility] ([facility]) Inr 0.98 [facility] ([facility]) THERAPUTIC HUMAN INR VALUES INDICATIONS NORMAL RANGES PROPHYLAXIS/TREATMENT OF: VENOUS THROMBOSIS 2.0-3.0 PULMONARY EMBOLISM 2.0-3.0 PREVENTION OF SYSTEMIC EMBOLISM FROM: TISSUE HEART VALVES 2.0-3.0 ACUTE MYOCARDIAL INFARCTION 2.0-3.0 VALVULAR HEART DISEASE 2.0-3.0 ATRIAL FIBRILLATION 2.0-3.0 MECHANICAL VALVES(HIGH RISK) 2.5-3.5 RECURRENT MYOCARDIAL INFARCTION 2.5-3.5 ID Date Data Source [id number] 02/13/2021 02:47:00 PM EDT [facility] ([facility]) Name Value Range Interpretation Code Description Data Tika rce(s) Supporting Document(s) C reactive protein [Mass/volume] in Serum or Plasma by High sensitivity method Laboratory test result 0.00-0.30 [facility] ([facility]) Platelets [#/volume] in Blood by Automated count 260 10 150-450 [facility] ([facility]) Erythrocyte sedimentation rate by Westergren method 28 mm/hr 0-30 [facility] ([facility]) Procedure Social History Code Duration Value Status Description Data Source(s ) Smoking 07/03/2021 12:00:00 AM EDT Patient is a former smoker completed Patient is a former smoker [facility] ([facility] ) Smoking 05/27/2021 12:00:00 AM EDT Former Smoker completed Former Smoker eCW1 ([facility]) Smoking 05/27/2021 12:00:00 AM EDT Former Smoker completed Former Smoker eCW1 ([facility]) Smoking 05/27/2021 12:00:00 AM EDT Former Smoker completed Former Smoker eCW1 ([facility]) Smoking 05/27/2021 12:00:00 AM EDT Former Smoker completed Former Smoker eCW1 ([facility]) Smoking 05/27/2021 12:00:00 AM EDT Former Smoker completed Former Smoker eCW1 ([facility]) Smoking 05/27/2021 12:00:00 AM EDT Former Smoker completed Former Smoker eCW1 ([facility]) Smoking 03/19/2021 12:00:00 AM EDT Former Smoker completed Former Smoker eCW1 ([facility]) Smoking 03/19/2021 12:00:00 AM EDT Former Smoker completed Former Smoker eCW1 ([facility]) Smoking 03/19/2021 12:00:00 AM EDT Former Smoker completed Former Smoker eCW1 ([facility]) Smoking 03/19/2021 12:00:00 AM EDT Former Smoker completed Former Smoker eCW1 ([facility]) Smoking 03/19/2021 12:00:00 AM EDT Former Smoker completed Former Smoker eCW1 ([facility]) Smoking 03/19/2021 12:00:00 AM EDT Former Smoker completed Former Smoker eCW1 ([facility]) Smoking 03/19/2021 12:00:00 AM EDT Former Smoker completed Former Smoker eCW1 ([facility]) Vital Signs ID Date Data Source [id number] Name Value Range Interpretation Code Description Data Source(s) Body weight 222.38 [lb_av] 222.38 [lb_av] MEDEN T ([facility]) Body height 65 [in_i] 65 [in_i] [facility] ([facility]) 5'5" Heart rate 69 /min 69 /min [facility] ([facility] Respiratory rate 18 /min 18 /min [facility] ( [facility]) Systolic blood pressure 149 mm[Hg] 149 mm[Hg] M EDENT ([facility]) Diastolic blood pressure 82 mm[Hg] 82 mm[Hg] [facility] ([facility]) Body mass index (BMI) [Ratio] 37.0 kg/m2 37.0 k g/m2 [facility] ([facility]) Body weight 219 [lb_av] 219 [lb_av] eCW1 ([facility]) Body weight 99.34 kg 99.34 kg eCW1 ([facility]) Body height 65 [in_i] 65 [in_i] eCW1 ([facility]) Body mass index (BMI) [Ratio] 36.44 kg/m2 36.44 kg/m2 eCW1 ([facility]) Heart rate 72 /min 72 /min eCW1 ([facility]) Respiratory rate 18 /min 18 /min eCW1 ([facility]) Body temperature 98.1 [degF] 98.1 [degF] eCW1 ( [facility]) Systolic blood pressure 138 mm[Hg] 138 mm[Hg] e CW1 ([facility]) Diastolic blood pressure 78 mm[Hg] 78 mm[Hg] eCW1 ([facility]) Heart rate 70 /min 70 /min [facility] Body weight 219.00 [lb_av] 219.00 [lb_av] MEDEN T ([facility]) Respiratory rate 16 /min 16 /min [facility] ( [facility]) Systolic blood pressure 110 mm[Hg] 110 mm[Hg] M EDENT ([facility]) Body height 65 [in_i] 65 [in_i] [facility] ([facility] 5'5" Diastolic blood pressure 66 mm[Hg] 66 mm[Hg] [facility] ([facility]) Body mass index (BMI) [Ratio] 36.4 kg/m2 36.4 k g/m2 [facility] ([facility]) Body weight 223.8 [lb_av] 223.8 [lb_av] eCW1 ([facility]) Respiratory rate 18 /min 18 /min eCW1 ([facility]) Body temperature 96.9 [degF] 96.9 [degF] eCW1 ( [facility]) Systolic blood pressure 110 mm[Hg] 110 mm[Hg] e CW1 ([facility]) Diastolic blood pressure 70 mm[Hg] 70 mm[Hg] eCW1 ([facility]) Body height 65 [in_i] 65 [in_i] eCW1 ([facility]) Body mass index (BMI) [Ratio] 37.24 kg/m2 37.24 kg/m2 eCW1 ([facility]) Heart rate 76 /min 76 /min eCW1 ([facility]) Body weight 220.00 [lb_av] 220.00 [lb_av] MEDEN T ([facility]) Body mass index (BMI) [Ratio] 36.6 kg/m2 36.6 k g/m2 [facility] ([facility]) Body temperature 97.1 [degF] 97.1 [degF] [facility] ([facility]) Body height 65 [in_i] 65 [in_i] [facility] ([facility]) 5'5" Body weight 218.38 [lb_av] 218.38 [lb_av] MEDEN T ([facility]) Body height 65 [in_i] 65 [in_i] [facility] ([facility]) 5'5" Heart rate 66 /min 66 /min [facility] ([facility]) Respiratory rate 16 /min 16 /min [facility] ( [facility]) Systolic blood pressure 132 mm[Hg] 132 mm[Hg] M EDENT ([facility]) Diastolic blood pressure 75 mm[Hg] 75 mm[Hg] [facility] ([facility]) Body mass index (BMI) [Ratio] 36.3 kg/m2 36.3 k g/m2 [facility] ([facility])
[2021-07-29] MEDS ORDERED: BISO10TA4 PO (07:37)
[2021-07-29] MEDS ORDERED: LEVOTAB10 PO (07:37)
[2021-07-29] MEDS ORDERED: TOLT2TAB12 PO (07:37)
[2021-07-29] MEDS ORDERED: FAMO20TA PO (07:37)
--- OUTSIDE RECORDS SUMMARY | 2021-07-29 08:36 | CCD ---
Author Author [facility] Organization [facility] Address Unknown Phone Unavailable Care Team Providers Care [employer] W[employer] Tester Name Role Phone Boles, Kaiden Unavailable Unavailable [...] Kaiden Unavailable Unavailable Boles, Kaiden Unavailable Unavailable Bolse, Kaiden Unavailable Unavailable Boles, Kaiden Unavailable Unavailable [...] is protected by Article 27-F of the [facility] Public Health law. If you continue you may have access to information: Regarding HIV / AIDS; Provided by facilities licensed or operated by the [facility] Office of Mental Health; or Provided by the [facility] Office for People With Developmental Disabilities. If such information is present, then the following [facility] mandated warning applies: This information [...] law may result in a fine or chcf sentence or both. A general authorization for the release of medical or other information is NOT sufficient authorization for further disc losure. Family History Family Member Name Family Member Gender Family Member Status Date o f Status Description Data Source(s) Unknown Male Problem MEDENT ([facility]) Unknown Male Problem MEDENT ([facility]) Unknown Unknown Problem MEDENT ([facility], ) Unknown Unknown Problem MEDENT ([facility], ) Unknown Unknown Problem MEDENT ([facility], ) Encounters Encounter Providers Location Date Indications Data Source(s ) Outpatient Attender: LILIAN BHANDARI Physical Therapy 07/17/2021 0 2:45:00 PM EDT MEDENT ([facility] ) Outpatient Attender: BHARATH ROTH MD Main Office 07/03/2021 02:45:00 PM EDT MED[facility] ([facility]) Unknown [address] [facility] [place] [address] 07/02/2021 12:00:00 AM EDT eCW1 ([facility]) Unknown [address] [facility] [place] [address] 07/02/2021 12:00:00 AM EDT eCW1 ([facility]) Unknown [address] [facility] [place] [address] 06/11/2021 12:00:00 AM EDT eCW1 ([facility]) Unknown [address] [facility] [place] [address] 06/05/2021 12:00:00 AM EDT eCW1 ([facility]) Outpatient Attender: LILIAN BHANDARI Physical Therapy 05/29/2021 0 2:30:00 PM EDT MEDENT ([facility] ) Unknown [address] [facility] [place] [address] 05/28/2021 12:00:00 AM EDT eCW1 ([facility]) Outpatient [address] [facility] [place] [address] 05/27/2021 12:00:00 AM EDT eCW1 ([facility]) Outpatient Attender: BHARATH ROTH MD Main Office 05/16/2021 02:30:00 PM EDT [facility] ([facility] [place] [address] [facility] [address] [place] [address] 04/26/2021 12:00:00 AM EDT eCW1 ([facility]) Office Visit Attender: LILIAN BHANDARI Physical Therapy 2020 02:20:00 PM EDT [facility] ([facility]) [place] [address] [facility] [place] [address] 04/04/2021 12:00:00 AM EDT eCW1 ([facility]) [place] [address] [facility] [place] [address] 03/27/2021 12:00:00 AM EDT eCW1 ([facility]) [place] [address] [facility] [place] [address] 03/25/2021 12:00:00 AM EDT eCW1 ([facility]) [place] [address] [facility] [address] [place] [address] 03/21/2021 12:00:00 AM EDT eCW1 ([facility]) [place] [address] [facility] [place] [address] 03/20/2021 12:00:00 AM EDT eCW1 ([facility]) Outpatient [address] [facility] [place] [address] 03/19/2021 12:00:00 AM EDT eCW1 ([facility]) Unknown [address] [facility] [place] [address] 02/28/2021 12:00:00 AM EDT eCW1 ([facility]) Outpatient Attender: Kaiden Boles Physical Therapy 02/13/2021 01:00:0 0 PM EDT MED[facility] ([facility]) [place] [address] [facility] [place] [address] 01/24/2021 12:00:00 AM EDT eCW1 ([facility]) [place] [address] [facility] [place] [address] 10/09/2020 12:00:00 AM EST eCW1 ([facility]) [place] [address] [facility] [place] [address] 09/26/2020 12:00:00 AM EST eCW1 ([facility]) [place] [address] [facility] [place] [address] 07/20/2020 12:00:00 AM EST eCW1 ([facility]) [place] [address] [facility] [place] [address] 06/26/2020 12:00:00 AM EDT eCW1 ([facility]) Immunizations Vaccine Date Status Description Data Source(s) VARICELLA-ZOSTER GE/AS01B/PF 07/04/2021 12:00:00 AM EDT completed [facility] COVID-19 VACCINE, MRNA-1273, LNP-S (MODERNA)/PF 11/07/2020 1 2:00:00 AM EST completed [facility] COVID-19 VACCINE Moderna 11/06/2020 12:00:00 AM EST completed [facility] Vaccine Series Complete: YESThis Data wa s Submitted to [facility] [employer]. COVID-19 VACCINE Moderna 10/10/2020 12:00:00 AM EST completed [facility] Vaccine Series Complete: NOThis Data was Submitted to [facility] [employer]. COVID-19 VACCINE, MRNA-1273, LNP-S (MODERNA)/PF 10/10/2020 1 [...] active MEDENT ([facility]) Hydroxyzine Hydrochloride 25 MG Oral Tablet Hydroxyzine HCL 05/16/2021 12:00:00 AM EDT ORAL active [facility] ([facility] levocetirizine dihydrochloride 5 MG Oral Tablet Levocetirizi ne Dihydrochloride 05/16/2021 12:00:00 AM EDT ORAL active MED[facility] ([facility]) 5 mg 04/30/2021 12:00:00 AM EDT tablet [...] active MEDENT ([facility]) 100 mcg 09/26/2020 12:00:00 AM EST tablet [...] TABLET BY MOUTH EVERY DAY SOLD: 08/13/2020 [employer] Potassium Chloride 10 MEQ Extended Release Oral [...] type / Coverage type Policy ID Covered green party ID Covered green party's relationship to renee Policy Renee Plan Information [employer] [id number] SP [id number] [employer] [id number] SP [id number] [employer] [id number] SP [id number] [employer] [id number] SP [id number] [employer] () Workers Compensation [id number] Self B [employer] () Workers Compensation [id number]815.0 Self B [employer] (WC) Workers Compensation BR 2.16.840.1.297423.3.227.99.991.34042.0 Self B [employer] (WC) Workers Compensation BR 2.16.840.1.103350.3.227.99.991.28503.0 Self B [id number] [employer] (WC) Workers Compensation [id number] 2.16.840.1.415602.3.227.99.991.53262.0 Self B [id number] [employer] (WC) Workers Compensation [id number] 2.16.840.1.361748.3.227.99.991.62590.0 Self B [id number] [employer] (WC) Workers Compensation [id number] 2.16.840.1.868313.3.227.99.991.78544.0 Self B [id number]-01-0250 [employer] (WC) Workers Compensation BRW--0250 2.16.840.1.104162.3.227.99.991.41721.0 Self B RW-01-0250 [employer] (WC) Workers Compensation BRW--0250 2.16.840.1.175737.3.227.99.991.38321.0 Self B [id number]-01-0250 [employer] (WC) Workers Compensation [id number]-01-0250 2.16.840.1.869145.3.227.99.991.79077.0 Self B RW-01-0250 [employer] (WC) Workers Compensation [id number]-[id number] 2.16.840.1.095245.3.227.99.991.05771.0 Self B RW-01-0250 [employer] (WC) Workers Compensation [id number]-01-0250 2.16.840.1.861537.3.227.99.991.10930.0 Self B RW-01-0250 [employer] (WC) Workers Compensation [id number]-01-0250 2.16.840.1.246910.3.227.99.991.51094.0 Self B RW-01-0250 [employer] (WC) Workers Compensation BRW-01-0250 2.16.840.1.998104.3.227.99.991.46131.0 Self B RW-01-0250 [employer] (WC) Workers Compensation [id number] Self [employer] (pr) Medigap Part B [id number] Self [id number] [employer] (pr) Medigap Part B [id number] 2.0.1.919215.3.227.99.991.1 1143.0 Self [id number] MEDICARE [id number] SP [id number] A Medicare Natl Govt Serv Medicare Primary [id number] 2.0.1.306455.3.227.99.4595.26676.0 Self [id number] Medicare Natl Govt Serv Medicare Primary [id number] Self Medicare Natl Govt Servic Medicare Primary [id number] 2.0.1.037988.3.227.99.4595.85899.0 Self [id number] Medicare Natl Govt Servic Medicare Primary [id number] 2.840.1.195321.3.227.99.4595.37954.0 Self [id number] Medicare Natl Govt Servic Medicare Primary [id number] Self [id number] Medicare Natl Govt Servic Medicare Primary [id number] 2.840.1.519763.3.227.99.4595.70038.0 Self [id number] [place] Primary [id number] 2.840.1.219107.3.227.99.991.39250.0 Self 6 [id number] Medicare [place] Medicare Primary [id number] 2.840.1.674861.3.227.99.991.94206.0 Self 0 [id number] [place] Medicare Primary [id number] 2.16.840.1.552222.3.227.99.991.21036.0 Self [id number] Medicare [place] Medicare Primary [id number] 2.16.840.1.398117.3.227.99.991.72171.0 Self 0 [id number] Medicare [place] Medicare Primary [id number] 2.16.840.1.353967.3.227.99.991.97182.0 Self 0 [id number] [place] Primary [id number] 2.16.840.1.539181.3.227.99.991.81741.0 Self 6 [id number] Medicare [place] Medicare Primary [id number] 2.16.840.1.810349.3.227.99.991.36659.0 Self 0 [id number] Medicare [place] Medicare Primary [id number] 2.16.840.1.961054.3.227.99.991.32909.0 Self 0 [id number] [place] Medicare Primary [id number] 2.16.840.1.722470.3.227.99.991.16034.0 Self 0 [id number] Medicare [place] Medicare Primary [id number] 2.16.840.1.739528.3.227.99.991.32291.0 Self 6 [id number] [place] Medicare Primary [id number] Self [id number] Medicare [place] Medicare Primary [id number] 2.16.840.1.149668.3.227.99.991.60637.0 Self 0 [id number] Medicare [place] Medicare Primary [id number] 2.16.840.1.057884.3.227.99.991.40829.0 Self 0 [id number] MEDICARE [id number] SP [id number] T91 MEDICARE [id number] SP [id number] T91 Umr (pr) Medigap Part B [id number] 2.16.840.1.292469.3.227.99.991.1114 3.0 Self [id number] Umr (pr) Medigap Part B [id number] 2.16.840.1.097515.3.227.99.991.10963.0 Self [id number] Umr (pr) Medigap Part B [id number] 2.16.840.1.717044.3.227.99.991.1114 3.0 Self [id number] Umr ([employer]) Medigap Part B [id number] Self [id number] Umr (pr) Medigap Part B [id number] 2.16.840.1.499645.3.227.99.991.1114 3.0 Self [id number] Umr (pr) Medigap Part B [id number] Self [id number] Umr (pr) Medigap Part B [id number] 2.16.840.1.362948.3.227.99.991.1114 3.0 Self [id number] Umr (pr) Medigap Part B [id number] 2.16.840.1.293410.3.227.99.991.27700.0 Self [id number] MEDICARE [id number] SP [id number] T91 UMR [facility] [id number] SP [id number] UMR [facility] [id number] SP [id number] R [facility] [id number] SP [id number] UMR O [id number] S [id number] MEDICARE C [id number] S [id number] T91 UMR [facility] [id number] SP [id number] [employer] Other 0 [id number] Self 0 Medicare Part B [facility] Other 0 [id number] Self 0 [employer] [place] Other 0 [id number] Self 0 Medicare Part B [facility] Other 0 [id number] Self 0 UMR 2.16.840.1.950630.3.441 [id number] 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 2..840.1.764911.3.441 Medicare 2.0.1.847441.3.441 [id number] Medicare Part B 2.840.1.686709.3.441 MEDICARE [id number] SP [id number] A Medicare Natl Govt Servic Medicare Primary [id number] Self [id number] [employer]/Um[employer] (Old) Medigap Part B [id number] Self [id number] Medicare Natl Govt Servic Medicare Primary [id number] 2.840.1.555149.3.227.99.4595.82325.0 Self [id number] [employer] (Old) Medigap Part B [id number] 2.840.1.37819 3.3.227.99.4595.82289.0 Self [id number] Medicare Natl Govt Servic Medicare Primary [id number] 2..840.1.238936.3.227.99.4595.09403.0 Self [id number] [employer] (Old) Medigap Part B [id number] 2.16.840.1.19531 3.3.227.99.4595.50944.0 Self [id number] [employer] [id number] SP [id number] Medicare Natl Govt Serv Medicare Primary [id number] 2.16.840.1.509337.3.227.99.4595.30179.0 Self [id number] [employer] (Old) Medigap Part B [id number] 2.16.840.1.86153 3.3.227.99.4595.15474.0 Self [id number] Medicare Natl Govt Serv Medicare Primary [id number] 2.16.840.1.491075.3.227.99.4595.44784.0 Self [id number] Umr [employer] (Before 01/12/18) Medigap Part B [id number] 2.16.840.1.561964.3.227.99.4595.93643.0 Self [id number] [employer] PPO O [id number] S [id number] MEDICARE C [id number] S [id number] A Medicare [facility] Medicare Primary [id number] 2.16.840.1.610189.3.227.99.991.14715.0 Self 0 [id number] [place] Primary [id number] 2.16.840.1.678899.3.227.99.991.17673.0 Self 0 [id number] [employer] Medigap Part B [id number] 2.16.840.1.222021.3.227.99.8646.170 78.0 Self [id number] Medicare [place]/NGS Medicare Primary 2.16.840.1.06131 3.3.227.99.8646.69924.0 Self Medicare Natl Govt Servic Medicare Primary [id number] Self Medicare Natl Govt Servic Medicare Primary [id number] Self [employer] Ppo Medigap Part B [id number] Self MEDICARE [id number] SP [id number] T MEDICARE - [place] MCR [id number] S [id number] [employer] PPO S [id number] S [id number] MEDICARE S UNAVAILABLE [id number] S UNAVAILA BLE UMR [facility] [id number] SP [id number] Problems, Conditions, and Diagnoses No Information Surgeries/Procedures Procedure Description Date Indications Data Source(s) OFFICE OUTPATIENT VISIT 40 MINUTES 07/17/2021 12:00:00 AM EDT MEDENT ([facility]) OFFICE OUTPATIENT VISIT 15 [...] procedure). 06/28/2021 12:00:00 AM EDT MEDEN T ([facility] ) 23931 Nerve conduction studies 7-8 studies NEW 201206/28/2021 12:00:00 AM EDT MEDENT ([facility]) OFFICE OUTPATIENT VISIT 25 MINUTES 06/28/2021 12:00:00 AM EDT MEDENT ([facility]) OFFICE OUTPATIENT VISIT 25 MINUTES 05/29/2021 12:00:00 AM EDT MEDENT ([facility]) OFFICE OUTPATIENT VISIT 15 MINUTES 05/16/2021 12:00:00 AM EDT MEDENT ([facility]) OFFICE OUTPATIENT VISIT 25 MINUTES 05/16/2021 12:00:00 AM EDT MEDENT ([facility]) PHYSICIAN TELEPHONE EVALUATION 5-10 MIN 04/11/2021 12: 00:00 AM EDT MEDENT ([facility]) OFFICE OUTPATIENT VISIT 25 MINUTES 04/11/2021 12:00:00 AM EDT MEDENT ([facility]) INJECT SI JOINT ARTHRGRPHY&/ANES/STEROID W/IMAGE 03/25 12:00:00 AM EDT MEDENT ([facility]) Moderate Sedation Services; Same Phys Intl 15 Mins; PT >= 5 Years 03/25/2021 12:00:00 AM EDT MEDENT ([facility]) OFFICE OUTPATIENT VISIT 25 MINUTES 02/13/2021 12:00:00 AM EDT MEDENT ([facility]) Results ID Date Data Source [id number] 03/20/2021 12:00:00 AM EDT eCW1 ([facility]) Name Value Range Interpretation Code Description Data Tika rce(s) Supporting Document(s) Hemoglobin A1c/Hemoglobin.total in Blood 7.9 HEMOGLOBIN A1c W1 ([facility]) ID Date Data Source [id number] 03/20/2021 12:00:00 AM EDT eCW1 ([facility]) Name Value Range Interpretation Code Description Data Tika rce(s) Supporting Document(s) Microalbumin/Creatinine [Mass Ratio] in Urine 69.8 CREATININE, URINE eCW1 ([facility]) Albumin/Creatinine [Mass Ratio] in Urine 15.3 MALB URINE SIEMENS eCW1 ([facility]) Microalbumin/Creatinine [Ratio] in Urine 21.9 0.0-30.0 GHAZAL/CREAT RATIO eCW1 ([facility]) ID Date Data Source TSH 03/20/2021 12:00:00 AM EDT eCW1 ([facility]) Name Value Range Interpretation Code Description Data Tika rce(s) Supporting Document(s) 3.540 0.358-3.740 THYROID STIMULATING HORM ONE eCW1 ([facility]) ID Date Data Source LIPID PANEL (CARDIAC RISK) 03/20/2021 12:00:00 AM EDT eCW1 ( [facility]) Name Value Range Interpretation Code Description Data Tika rce(s) Supporting Document(s) Triglyceride [Mass/volume] in Serum or Plasma by calculation 170 <150 TRIGLYCERIDES LEVEL eC1 ([facility]) Cholesterol [Moles/volume] in Serum or Plasma 140 <200 CHOLESTEROL LEVEL eCW1 ([facility]) Cholesterol in HDL [Moles/volume] in Serum or Plasma 39 >40 HDL CHOLESTEROL eCW1 ([facility]) Cholesterol in LDL [Mass/volume] in Serum or Plasma by calculation 67 <100 LDL CHOLESTEROL eCW1 ([facility]) 101 NON-HDL-C eCW1 ([facility]) 3.589 <5 CHOLESTEROL RISK RATIO eCW1 ([facility]) ID Date Data Source Comprehensive Metabolic Profile (CMP) 03/20/2021 12:00:00 AM EDT eCW1 ([facility]) Name Value Range Interpretation Code Description Data Tika rce(s) Supporting Document(s) 242 70-100 GLUCOSE, FASTING eCW1 ([facility]) 14 7-18 BLOOD UREA NITROGEN eCW1 ([facility]) 0.86 0.55-1.30 CREATININE FOR GFR eCW1 (Critical [facility] hospital) 139 136-145 SODIUM LEVEL eCW1 ([facility]) > 60.0 >39 GLOMERULAR FILTRATION RATE eCW 1 ([facility]) 4.2 3.5-5.1 POTASSIUM SERUM eCW1 ([facility]) 105 98-107 CHLORIDE LEVEL eCW1 ([facility]) 28 21-32 CARBON DIOXIDE LEVEL eCW1 ([facility]) 8.8 8.8-10.2 CALCIUM LEVEL eCW1 ([facility]) 19 7-37 AST/SGOT eCW1 ([facility]) 27 12-78 ALT/SGPT eCW1 ([facility]) 92 45-117 ALKALINE PHOSPHATASE eCW1 ([facility]) 1.2 0.2-1.0 BILIRUBIN,TOTAL eCW1 ([facility]) 7.2 6.4-8.2 TOTAL PROTEIN eCW1 ([facility]) 3.9 3.2-5.2 ALBUMIN eCW1 ([facility]) 1.2 1.2-2.2 ALBUMIN/GLOBULIN RATIO eCW1 ([facility]) ID Date Data Source [id number] 02/14/2021 03:35:00 PM EDT MEDENT ([facility]) Name Value Range Interpretation Code Description Data Tika rce(s) Supporting Document(s) Laboratory test finding (navigational concept) Laboratory test result MEDENT ([facility]) ID Date Data Source [id number] 02/13/2021 02:47:00 PM EDT MEDENT ([facility]) Name Value Range Interpretation Code Description Data Tika rce(s) Supporting Document(s) Prothrombin Time 13.2 s 12.5-14.3 MEDENT ([facility]) Partial Thromboplastin Time 31.6 s 24.2-38.5 MEDENT ([facility]) Inr 0.98 MEDENT ([facility]) THERAPUTIC HUMAN INR VALUES INDICATIONS NORMAL RANGES PROPHYLAXIS/TREATMENT OF: VENOUS THROMBOSIS 2.0-3.0 PULMONARY EMBOLISM 2.0-3.0 PREVENTION OF SYSTEMIC EMBOLISM FROM: TISSUE HEART VALVES 2.0-3.0 ACUTE MYOCARDIAL INFARCTION 2.0-3.0 VALVULAR HEART DISEASE 2.0-3.0 ATRIAL FIBRILLATION 2.0-3.0 MECHANICAL VALVES(HIGH RISK) 2.5-3.5 RECURRENT MYOCARDIAL INFARCTION 2.5-3.5 ID Date Data Source [id number] 02/13/2021 02:47:00 PM EDT MEDENT ([facility]) Name Value Range Interpretation Code Description Data Tika rce(s) Supporting Document(s) C reactive protein [Mass/volume] in Serum or Plasma by High sensitivity method Laboratory test result 0.00-0.30 MEDENT ([facility]) Platelets [#/volume] in Blood by Automated count 260 10 150-450 MEDENT ([facility]) Erythrocyte sedimentation rate by Westergren method 28 mm/hr 0-30 MEDENT ([facility]) Procedure Social History Code Duration Value Status Description Data Source(s ) Smoking 07/03/2021 12:00:00 AM EDT Patient is a former smoker completed Patient is a former smoker MED[facility] ([facility] ) Smoking 05/27/2021 12:00:00 AM EDT Former Smoker completed Former Smoker eCW1 ([facility]) Smoking 05/27/2021 12:00:00 AM EDT Former Smoker completed Former Smoker eCW1 ([facility]) Smoking 05/27/2021 12:00:00 AM EDT Former Smoker completed Former Smoker eCW1 ([facility]) Smoking 05/27/2021 12:00:00 AM EDT Former Smoker completed Former Smoker eCW1 ([facility]) Smoking 05/27/2021 12:00:00 AM EDT Former Smoker completed Former Smoker eCW1 ([facility]) Smoking 05/27/2021 12:00:00 AM EDT Former Smoker completed Former Smoker eCW1 ([facility]) Smoking 03/19/2021 12:00:00 AM EDT Former Smoker completed Former Smoker eCW1 ([facility]) Smoking 03/19/2021 12:00:00 AM EDT Former Smoker completed Former Smoker eCW1 ([facility]) Smoking 03/19/2021 12:00:00 AM EDT Former Smoker completed Former Smoker eCW1 ([facility]) Smoking 03/19/2021 12:00:00 AM EDT Former Smoker completed Former Smoker eCW1 ([facility]) Smoking 03/19/2021 12:00:00 AM EDT Former Smoker completed Former Smoker eCW1 ([facility]) Smoking 03/19/2021 12:00:00 AM EDT Former Smoker completed Former Smoker eCW1 ([facility]) Smoking 03/19/2021 12:00:00 AM EDT Former Smoker completed Former Smoker eCW1 ([facility]) Vital Signs ID Date Data Source UNK [...] Body weight 219 [lb_av] 219 [lb_av] eCW1 ([facility]) Body weight 99.34 kg 99.34 kg eCW1 ([facility]) Body height 65 [in_i] 65 [in_i] eCW1 ([facility]) Body mass index (BMI) [Ratio] 36.44 kg/m2 36.44 kg/m2 eCW1 ([facility]) Heart rate 72 /min 72 /min eCW1 ([facility]) Respiratory rate 18 /min 18 /min eCW1 ([facility]) Body temperature 98.1 [degF] 98.1 [degF] eCW1 ( [facility]) Systolic blood pressure 138 mm[Hg] 138 mm[Hg] e CW1 ([facility]) Diastolic blood pressure 78 mm[Hg] 78 mm[Hg] eCW1 ([facility]) Heart rate 70 /min 70 /min MEDENT ([facility] Respiratory rate 16 /min 16 /min MEDENT ( [facility]) Systolic blood pressure 110 mm[Hg] 110 mm[Hg] M EDENT ([facility]) Body weight 219.00 [lb_av] 219.00 [lb_av] MEDEN [...] 223.8 [lb_av] 223.8 [lb_av] eCW1 ([facility]) Body height 65 [in_i] 65 [in_i] eCW1 ([facility]) Body mass index (BMI) [Ratio] 37.24 kg/m2 37.24 kg/m2 eCW1 ([facility]) Heart rate 76 /min 76 /min eCW1 ([facility]) Respiratory rate 18 /min 18 /min eCW1 ([facility]) Body temperature 96.9 [degF] 96.9 [degF] eCW1 ( [facility]) Systolic blood pressure 110 mm[Hg] 110 mm[Hg] e CW1 ([facility]) Diastolic blood pressure 70 mm[Hg] 70 mm[Hg] eCW1 ([facility]) Body weight 220.00 [lb_av] 220.00 [lb_av] MEDEN T ([facility]) Body mass index (BMI) [Ratio] 36.6 kg/m2 36.6 k g/m2 MEDENT ([facility]) Body temperature 97.1 [degF] 97.1 [degF] MEDENT ([facility]) Body height 65 [in_i] 65 [in_i] MEDENT ([facility]) 5'5" Body weight 218.38 [...]
--- NOTE | 2021-07-29 09:30 | REP ---
INDICATION: trauma (10 days ago) left sided neck pain. COMPARISON: None. TECHNIQUE: Contiguous 2 mm thick axial projection images were obtained through the cervical spine. 2D sagittal and coronal reconstructions were performed. FINDINGS: There is loss of the normal cervical lordosis. 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 There is degenerative disc disease, C3-4, C4-5, C5-6 and C6-7 with narrowing of the intervertebral disc spaces and marginal osteophytes. There is multilevel facet arthropathy. There is degenerative grade 1 anterolisthesis of C3 on C4, C4 on C5 and C5 on C6. There is no evidence of cervical spine fracture. There is calcific vascular disease of the intracranial portion of both internal carotid arteries and at both carotid bifurcations. The soft tissues of the neck have an otherwise unremarkable unenhanced appearance. IMPRESSION: 1. Multilevel degenerative disc disease with cervical spasm. 2. Spondylosis with degenerative grade 1 anterolisthesis, C3 through C6. 3. No evidence of acute injury. 4. Other findings as noted. <Electronically signed by Mumtaz Atkins > 07/29/21 [id number]
--- NOTE | 2021-07-29 09:34 | REP ---
INDICATION: trauma (10 days ago) swelling over top of head. COMPARISON: None. TECHNIQUE: Contiguous 5 mm thick axial projection images were obtained of the head. 2D coronal reconstructions were performed. FINDINGS: There is mild diffuse cerebral atrophy with concomitant ventriculomegaly. There is no evidence of acute intracranial hemorrhage or infarction. There are no abnormal intracranial masses or mass effects. The skull base and calvarium are intact. The intraorbital contents appear normal. There is a small scalp hematoma over the right frontal parietal region near the vertex. IMPRESSION: 1. Mild cerebral atrophy. 2. Small right frontal parietal scalp hematoma. 3. No evidence of acute intracranial pathology. <Electronically signed by Mumtaz Atkins > 07/29/21 [id number]
[2021-07-29] MEDS ORDERED: CYCL5TAB PO (10:20)
[2021-07-29 10:38] VITALS: BP 145/68
== END 2021-07-29 10:41 | disposition home or self-care (01) ==
LOC: M ED 07:16
DX: S01.01XA Laceration without foreign body of scalp, initial encounter (principal); S13.4XXA Sprain of ligaments of cervical spine, initial encounter; V49.49XA Driver injured in collision with other motor vehicles in traffic accident, initial encounter; I10 Essential (primary) hypertension; E11.9 Type 2 diabetes mellitus without complications; E03.9 Hypothyroidism, unspecified; E78.00 Pure hypercholesterolemia, unspecified; K21.9 Gastro-esophageal reflux disease without esophagitis; K44.9 Diaphragmatic hernia without obstruction or gangrene; M19.90 Unspecified osteoarthritis, unspecified site; Z88.0 Allergy status to penicillin; Z88.8 Allergy status to other drugs, medicaments and biological substances; Z91.018 Allergy to other foods; Z79.899 Other long term (current) drug therapy; Z79.82 Long term (current) use of aspirin; Z79.890 Hormone replacement therapy; Z79.4 Long term (current) use of insulin

== ENCOUNTER → 2021-10-01 | Outpatient (REF) | payer MEDICARE, OTHER ==
[~2021-10-01] MED LIST changes: +BISO1TAB19 PO; +CYCL5TAB PO; +FAMO20TA PO; +LEVOTAB10 PO; +LOSA25TA13 PO; -LOSA25TA14 PO; +TOLT2TAB12 PO
== END ==
LOC: M SFHCPLAZ 14:05
PROVIDERS: ATTEND Family Medicine
DX: E11.9 Type 2 diabetes mellitus without complications (principal)

== ENCOUNTER → 2021-10-28 | Outpatient (CLI) | payer MEDICARE, OTHER | LOC: M RAD 11:55 | PROVIDERS: ATTEND Family Medicine | DX: R91.8 Other nonspecific abnormal finding of lung field (principal); J47.9 Bronchiectasis, uncomplicated; Z12.2 Encounter for screening for malignant neoplasm of respiratory organs; Z87.891 Personal history of nicotine dependence ==

== ENCOUNTER → 2021-11-22 | Outpatient (CLI) | payer MEDICARE, OTHER | LOC: M WHC 08:51 | PROVIDERS: ATTEND Family Medicine | DX: Z12.31 Encounter for screening mammogram for malignant neoplasm of breast (principal); M81.0 Age-related osteoporosis without current pathological fracture ==

== ENCOUNTER → 2022-01-13 | Outpatient (CLI) | payer MEDICARE, OTHER ==
[~2022-01-13] MED LIST changes: +ACET32TAB PO; +ASPI81TA26 PO; +VITMTA PO
== END ==
LOC: M LABSMTC 09:10
PROVIDERS: ATTEND Anesthesiology
DX: Z11.52 Encounter for screening for COVID-19 (principal); Z20.822 Contact with and (suspected) exposure to COVID-19

== ENCOUNTER 2022-01-17 07:50 | Day surgery (SDC) | payer MEDICARE, OTHER ==
[~2022-01-17] VITALS: Ht 165.1 cm; Wt 97.0 kg
[~2022-01-17 07:50] MED LIST changes: +NS 1,000 ML IV ONE
[2022-01-17] MEDS ORDERED: propofoL 200 MG/20 ML VIAL As Ordered ONE ×2 (08:25→10:23)
[2022-01-17] MEDS ORDERED: LIDOCAINE 2% 100MG/5ML SDV (FOR ANES.) As Ordered ONE (08:25)
[2022-01-17] MEDS ORDERED: INSULIN LISPRO (NovoLOG) PER UNIT SC ONE (08:40)
[2022-01-17 11:04] VITALS: BP 156/84
== END 2022-01-17 11:26 | disposition home or self-care (01) ==
LOC: M OPP 07:50
PROVIDERS: ATTEND Internal Medicine Gastroenterology
DX: Z53.8 Procedure and treatment not carried out for other reasons (principal); Z12.11 Encounter for screening for malignant neoplasm of colon; Z86.010 Personal history of colon polyps; Z80.0 Family history of malignant neoplasm of digestive organs; Z83.71 Family history of colonic polyps; K64.8 Other hemorrhoids; K62.4 Stenosis of anus and rectum; Z79.4 Long term (current) use of insulin; Z79.52 Long term (current) use of systemic steroids; Z79.82 Long term (current) use of aspirin; Z79.890 Hormone replacement therapy; Z79.899 Other long term (current) drug therapy; Z88.6 Allergy status to analgesic agent; Z91.013 Allergy to seafood
CPT/HCPCS: 45378; J1815

== ENCOUNTER → 2022-06-06 | Outpatient (CLI) | payer MEDICARE, OTHER ==
[~2022-06-06] MED LIST changes: -NS 1,000 ML IV ONE
[2022-06-06 16:25] LABS: ALBUMIN 3.7 GM/DL (3.2-5.2); ALT/SGPT 24 U/L (12-78); BLOOD UREA NITROGEN 9 MG/DL (7-18); CALCIUM LEVEL 9.2 MG/DL (8.8-10.2); CARBON DIOXIDE LEVEL 30 MEQ/L (21-32); CHLORIDE LEVEL 106 MEQ/L (98-107); CREATININE FOR GFR 0.78 MG/DL (0.55-1.30); GLOMERULAR FILTRATION RATE > 60.0 (>39); GLUCOSE, FASTING 197 MG/DL (70-100); POTASSIUM SERUM 4.4 MEQ/L (3.5-5.1); SODIUM LEVEL 140 MEQ/L (136-145); TOTAL PROTEIN 6.9 GM/DL (6.4-8.2)
[2022-06-06 16:53] LABS: HEMOGLOBIN A1c 8.1 %
== END ==
LOC: M PLALAB 14:05
PROVIDERS: ATTEND Student in an Organized Health Care Education/Training Program
DX: E11.9 Type 2 diabetes mellitus without complications (principal)

== ENCOUNTER → 2022-07-17 | Outpatient (CLI) | payer MEDICARE, OTHER ==
[2022-07-17 15:34] LABS: FREE T3 2.6 PG/ML (2.2-4.0); FREE T4 1.12 NG/DL (0.76-1.46); THYROID STIMULATING HORMONE 0.885 uIU/ML (0.358-3.740)
== END ==
LOC: M PLALAB 10:27
PROVIDERS: ATTEND Student in an Organized Health Care Education/Training Program
DX: Z01.812 Encounter for preprocedural laboratory examination (principal); Z20.822 Contact with and (suspected) exposure to COVID-19; E03.9 Hypothyroidism, unspecified

== ENCOUNTER → 2022-07-17 | Outpatient (CLI) | payer MEDICARE, OTHER | LOC: M LABSMTC 11:14 | PROVIDERS: ATTEND Anesthesiology | DX: Z01.812 Encounter for preprocedural laboratory examination (principal); Z20.822 Contact with and (suspected) exposure to COVID-19 ==

== ENCOUNTER → 2022-11-27 | Outpatient (CLI) | payer MEDICARE, OTHER ==
[2022-11-27 15:40] LABS: BASO # 0.1 10^3/uL (0.0-0.2); BASO % 0.7 % (0.0-1.0); EOS # 0.2 10^3/uL (0.0-0.5); EOS % 2.1 % (0.0-3.0); HEMATOCRIT 43.7 % (36.0-47.0); LYMPH # 2.4 10^3/uL (1.5-5.0); LYMPH % 23.5 % (24.0-44.0); MEAN CORPUSCULAR HEMOGLOBIN 31.6 pg (27.0-33.0); MEAN CORPUSCULAR VOLUME 98.6 fl (80.0-96.0); MONO # 0.8 10^3/uL (0.0-0.8); NEUTROPHILS # 6.5 10^3/uL (1.5-8.5); NEUTROPHILS % 65.3 % (36.0-66.0); PLATELET COUNT, AUTOMATED 243 10^3/uL (150-450); RED BLOOD COUNT 4.43 10^6/uL (4.00-5.40)
[2022-11-27 15:53] LABS: ALKALINE PHOSPHATASE 95 U/L (46-116); ALT/SGPT 18 U/L (7.0-40); AST/SGOT 21 U/L (<34); BILIRUBIN,TOTAL 1.3 MG/DL (0.3-1.2); BLOOD UREA NITROGEN 18 MG/DL (9-23); CALCIUM LEVEL 9.6 MG/DL (8.3-10.6); CARBON DIOXIDE LEVEL 28 MMOL/L (20-31); CHLORIDE LEVEL 102 MMOL/L (98-107); CHOLESTEROL LEVEL 124 MG/DL (<200); CHOLESTEROL RISK RATIO 3.81 (<5); CREATININE FOR GFR 0.82 MG/DL (0.55-1.30); GLOMERULAR FILTRATION RATE > 60.0 (>39); GLUCOSE, FASTING 275 MG/DL (74-106); HDL CHOLESTEROL 32.5 MG/DL (>40); LDL CHOLESTEROL 50.5 MG/DL (<100); NON-HDL-C 91.5 MG/DL; POTASSIUM SERUM 4.7 MMOL/L (3.5-5.1); SODIUM LEVEL 138 MMOL/L (136-145); TOTAL PROTEIN 7.1 G/DL (5.7-8.2); TRIGLYCERIDES LEVEL 205 MG/DL (<150)
[2022-11-27 16:02] LABS: CREATININE, URINE 34.7 MG/DL
== END ==
LOC: M PLALAB 13:00
PROVIDERS: ATTEND Student in an Organized Health Care Education/Training Program
DX: I10 Essential (primary) hypertension (principal)

== ENCOUNTER → 2022-11-27 | Outpatient (CLI) | payer MEDICARE, OTHER | LOC: M WHC 12:26 | PROVIDERS: ATTEND Student in an Organized Health Care Education/Training Program | DX: Z12.31 Encounter for screening mammogram for malignant neoplasm of breast (principal); I10 Essential (primary) hypertension ==

== ENCOUNTER → 2022-12-05 | Outpatient (CLI) | payer MEDICARE, OTHER | LOC: M RAD 11:54 | PROVIDERS: ATTEND Student in an Organized Health Care Education/Training Program | DX: Z12.2 Encounter for screening for malignant neoplasm of respiratory organs (principal); F17.211 Nicotine dependence, cigarettes, in remission; R91.8 Other nonspecific abnormal finding of lung field ==

== ENCOUNTER 2023-01-12 06:39 | Day surgery (SDC) | payer MEDICARE, OTHER ==
[~2023-01-12] VITALS: Ht 165.1 cm; Wt 94.4 kg
[~2023-01-12 06:39] MED LIST changes: +NS 1,000 ML IV ONE; +PRIL20TA2 PO
[2023-01-12] MEDS ORDERED: LIDOCAINE 2% 100MG/5ML SDV (FOR ANES.) As Ordered ONE (07:12)
[2023-01-12] MEDS ORDERED: propofoL 200 MG/20 ML VIAL As Ordered ONE (07:12)
[2023-01-12] MEDS ORDERED: INSULIN LISPRO (NovoLOG) PER UNIT SC PRN (07:30)
[2023-01-12 08:20] VITALS: BP 155/67
== END 2023-01-12 08:39 | disposition home or self-care (01) ==
LOC: M OPP 06:39
PROVIDERS: ATTEND Internal Medicine Gastroenterology
DX: Z86.010 Personal history of colon polyps (principal); Z80.0 Family history of malignant neoplasm of digestive organs; K64.9 Unspecified hemorrhoids; E11.9 Type 2 diabetes mellitus without complications; E03.9 Hypothyroidism, unspecified; K21.9 Gastro-esophageal reflux disease without esophagitis; M19.90 Unspecified osteoarthritis, unspecified site; I10 Essential (primary) hypertension; I09.9 Rheumatic heart disease, unspecified; Z96.641 Presence of right artificial hip joint; Z88.0 Allergy status to penicillin; Z88.6 Allergy status to analgesic agent; Z91.013 Allergy to seafood; Z79.4 Long term (current) use of insulin; Z79.82 Long term (current) use of aspirin; Z79.84 Long term (current) use of oral hypoglycemic drugs; Z79.890 Hormone replacement therapy; Z80.3 Family history of malignant neoplasm of breast; Z80.8 Family history of malignant neoplasm of other organs or systems
CPT/HCPCS: G0105; J1815

== ENCOUNTER → 2023-01-19 | Outpatient (CLI) | payer MEDICARE, OTHER ==
[~2023-01-19] MED LIST changes: -NS 1,000 ML IV ONE
[2023-01-19 16:30] LABS: PROTHROMBIN TIME 13.4 SECONDS (12.5-14.5)
== END ==
LOC: M PLALAB 14:30
PROVIDERS: ATTEND Physician Assistant
DX: M54.17 Radiculopathy, lumbosacral region (principal)

== ENCOUNTER → 2023-02-19 | Outpatient (CLI) | payer MEDICARE, OTHER ==
[~2023-02-19] MED LIST changes: -K-TA10TA2 PO; +POTA-165 PO
[2023-02-19 15:52] LABS: PLATELET COUNT, AUTOMATED 248 10^3/uL (150-450)
[2023-02-19 16:04] LABS: INR 1.06
[2023-02-19 16:05] LABS: PARTIAL THROMBOPLASTIN TIME 33.5 SECONDS (24.8-34.2)
== END ==
LOC: M PLALAB 13:38
PROVIDERS: ATTEND Physician Assistant
DX: M47.896 Other spondylosis, lumbar region (principal)

== ENCOUNTER → 2023-06-25 | Outpatient (REF) | payer MEDICARE, OTHER ==
[2023-06-25 19:25] LABS: HEMOGLOBIN A1c 5.4 % (4.0-6.0)
== END ==
LOC: M PLALAB 17:44
PROVIDERS: ATTEND Student in an Organized Health Care Education/Training Program
DX: Z00.00 Encounter for general adult medical examination without abnormal findings (principal); E11.9 Type 2 diabetes mellitus without complications

== ENCOUNTER → 2023-10-26 | Outpatient (CLI) | payer MEDICARE, OTHER | LOC: M PLAIMG 12:50 | PROVIDERS: ATTEND Student in an Organized Health Care Education/Training Program | DX: I27.20 Pulmonary hypertension, unspecified (principal); I08.0 Rheumatic disorders of both mitral and aortic valves ==

== ENCOUNTER → 2023-11-23 | Outpatient (CLI) | payer MEDICARE, OTHER ==
[2023-11-23 16:14] LABS: BASO # 0.1 10^3/uL (0.0-0.2); BASO % 0.7 % (0.0-1.0); EOS # 0.2 10^3/uL (0.0-0.5); EOS % 1.9 % (0.0-3.0); HEMATOCRIT 39.7 % (36.0-47.0); LYMPH # 2.2 10^3/uL (1.5-5.0); LYMPH % 18.1 % (24.0-44.0); MEAN CORPUSCULAR HEMOGLOBIN 32.6 pg (27.0-33.0); MEAN CORPUSCULAR HGB CONC 32.7 g/dl (32.0-36.5); MEAN CORPUSCULAR VOLUME 99.5 fl (80.0-96.0); MONO % 8.6 % (2.0-8.0); NEUTROPHILS # 8.4 10^3/uL (1.5-8.5); PLATELET COUNT, AUTOMATED 268 10^3/uL (150-450); RED BLOOD COUNT 3.99 10^6/uL (4.00-5.40)
[2023-11-23 16:20] LABS: CREATININE, URINE 61.4 MG/DL
[2023-11-23 16:21] LABS: MAU/CREAT RATIO 32.5 MCG/MG (0.0-30.0)
[2023-11-23 16:24] LABS: HEMOGLOBIN A1c 6.8 % (4.0-6.0)
[2023-11-23 16:27] LABS: BLOOD UREA NITROGEN 17 MG/DL (9-23); CARBON DIOXIDE LEVEL 28 MMOL/L (20-31); CHLORIDE LEVEL 108 MMOL/L (98-107); CHOLESTEROL LEVEL 136 MG/DL (<200); CHOLESTEROL RISK RATIO 3.42 (<5); CREATININE FOR GFR 0.76 MG/DL (0.55-1.30); GLOMERULAR FILTRATION RATE > 60.0 (>39); GLUCOSE, FASTING 138 MG/DL (74-106); HDL CHOLESTEROL 39.7 MG/DL (>40); LDL CHOLESTEROL 71.5 MG/DL (<100); MAGNESIUM LEVEL 2.3 MG/DL (1.8-2.4); NON-HDL-C 96.3 MG/DL; POTASSIUM SERUM 4.4 MMOL/L (3.5-5.1); SODIUM LEVEL 142 MMOL/L (136-145); TRIGLYCERIDES LEVEL 124 MG/DL (<150)
[2023-11-23 16:29] LABS: FREE T4 1.17 NG/DL (0.89-1.76)
[2023-11-23 17:20] LABS: THYROID STIMULATING HORMONE 0.818 uIU/ML (0.55-4.78)
== END ==
LOC: M PLALAB 14:25
PROVIDERS: ATTEND Student in an Organized Health Care Education/Training Program
DX: E11.65 Type 2 diabetes mellitus with hyperglycemia (principal); E83.42 Hypomagnesemia; E78.5 Hyperlipidemia, unspecified; E03.9 Hypothyroidism, unspecified; I10 Essential (primary) hypertension

== ENCOUNTER → 2024-01-11 | Outpatient (CLI) | payer MEDICARE, OTHER | LOC: M WHC 13:41 | PROVIDERS: ATTEND Student in an Organized Health Care Education/Training Program | DX: Z12.31 Encounter for screening mammogram for malignant neoplasm of breast (principal); Z13.820 Encounter for screening for osteoporosis; M85.851 Other specified disorders of bone density and structure, right thigh; M85.852 Other specified disorders of bone density and structure, left thigh ==

== ENCOUNTER → 2024-03-16 | Outpatient (CLI) | payer MEDICARE, OTHER | LOC: M RAD 12:31 | PROVIDERS: ATTEND Student in an Organized Health Care Education/Training Program | DX: Z12.2 Encounter for screening for malignant neoplasm of respiratory organs (principal); F17.211 Nicotine dependence, cigarettes, in remission; R91.1 Solitary pulmonary nodule; I51.7 Cardiomegaly; D35.02 Benign neoplasm of left adrenal gland ==

== ENCOUNTER 2024-03-28 08:04 | Day surgery (SDC) | payer MEDICARE, OTHER ==
[~2024-03-28] VITALS: Ht 165.1 cm; Wt 94.5 kg
[~2024-03-28 08:04] MED LIST changes: +ACET-1349 PO; +ACET500T15 PO; +BISO5TAB14 PO; +INSU100I22 SC; +OMEP-173 PO; +POTA1TAB23 PO; +PROL60SO SC; +THERTAB52 PO; +propofoL 200 MG/20 ML VIAL As Ordered ONE
[2024-03-28] MEDS: NS 1,000 ML IV ONE (08:27)
[2024-03-28 08:33] VITALS: TEMP 98
[2024-03-28 10:18] VITALS: BP 147/69; O2SAT 93
== END 2024-03-28 10:17 | disposition home or self-care (01) ==
LOC: M OPP 08:04
PROVIDERS: ATTEND Internal Medicine Gastroenterology
DX: Z12.11 Encounter for screening for malignant neoplasm of colon (principal); Z86.010 Personal history of colon polyps; Z80.0 Family history of malignant neoplasm of digestive organs; E11.9 Type 2 diabetes mellitus without complications; E03.9 Hypothyroidism, unspecified; Z79.02 Long term (current) use of antithrombotics/antiplatelets; Z79.1 Long term (current) use of non-steroidal anti-inflammatories (NSAID); Z79.4 Long term (current) use of insulin; Z79.82 Long term (current) use of aspirin; Z79.890 Hormone replacement therapy; Z79.899 Other long term (current) drug therapy; Z88.0 Allergy status to penicillin; Z88.6 Allergy status to analgesic agent; Z91.013 Allergy to seafood

== ENCOUNTER → 2024-04-05 | Outpatient (CLI) | payer MEDICARE, OTHER ==
[~2024-04-05] MED LIST changes: -propofoL 200 MG/20 ML VIAL As Ordered ONE
[2024-04-05 14:24] LABS: HEMOGLOBIN A1c 6.6 % (4.0-6.0)
[2024-04-05 14:35] LABS: ALBUMIN 4.1 G/DL (3.2-5.2); BLOOD UREA NITROGEN 18 MG/DL (9-23); CALCIUM LEVEL 9.6 MG/DL (8.3-10.6); CARBON DIOXIDE LEVEL 28 MMOL/L (20-31); CHLORIDE LEVEL 107 MMOL/L (98-107); CREATININE FOR GFR 0.86 MG/DL (0.55-1.30); GLOMERULAR FILTRATION RATE > 60.0 (>39); GLUCOSE, FASTING 176 MG/DL (74-106); PHOSPHORUS LEVEL 4.3 MG/DL (2.4-5.1); SODIUM LEVEL 141 MMOL/L (136-145)
[2024-04-05 14:36] LABS: PTH INTACT 126.3 PG/ML (18.5-88.0)
[2024-04-05 14:37] LABS: TOTAL 25(OH) VITAMIN D 20.2 NG/ML (20.0-100.0)
== END ==
LOC: M PLALAB 11:50
PROVIDERS: ATTEND Student in an Organized Health Care Education/Training Program
DX: E11.65 Type 2 diabetes mellitus with hyperglycemia (principal)

== ENCOUNTER → 2024-06-02 | Outpatient (CLI) | payer MEDICARE, OTHER | LOC: M CARPUL 08:47 | PROVIDERS: ATTEND Student in an Organized Health Care Education/Training Program | DX: Z53.9 Procedure and treatment not carried out, unspecified reason (principal) ==

== ENCOUNTER → 2024-07-12 | Outpatient (CLI) | payer MEDICARE, OTHER ==
[~2024-07-12] MED LIST changes: +BISO1TAB19; -CYCL5TAB PO; +CYCL5TAB4 PO; +GABA-1172; +HYDR-3713 PO
[2024-07-12 15:36] LABS: HEMOGLOBIN A1c 8.2 % (4.0-6.0)
== END ==
LOC: M PLALAB 13:45
PROVIDERS: ATTEND Student in an Organized Health Care Education/Training Program
DX: E11.65 Type 2 diabetes mellitus with hyperglycemia (principal)

== ENCOUNTER 2024-08-19 14:18 | Emergency (ER) | payer MEDICARE, OTHER ==
[~2024-08-19] VITALS: Ht 165.1 cm; Wt 94.9 kg
[~2024-08-19 14:18] MED LIST changes: -BISO1TAB19; -GABA-1172; -HYDR-3713 PO
[2024-08-19 14:20] VITALS: BP 149/79; TEMP 98; O2SAT 96
[2024-08-19] MEDS ORDERED: GABA-1172 (14:35)
[2024-08-19] MEDS ORDERED: BISO1TAB19 (14:35)
[2024-08-19] MEDS ORDERED: HYDR-3713 PO (16:53)
== END 2024-08-19 17:17 | disposition home or self-care (01) ==
LOC: M ED 14:18
DX: S52.502A Unspecified fracture of the lower end of left radius, initial encounter for closed fracture (principal); Y92.9 Unspecified place or not applicable; Y93.9 Activity, unspecified; Y99.9 Unspecified external cause status; W01.0XXA Fall on same level from slipping, tripping and stumbling without subsequent striking against object, initial encounter; I10 Essential (primary) hypertension; E78.5 Hyperlipidemia, unspecified; E11.9 Type 2 diabetes mellitus without complications; E03.9 Hypothyroidism, unspecified; Z88.0 Allergy status to penicillin; Z88.8 Allergy status to other drugs, medicaments and biological substances; Z91.013 Allergy to seafood; Z79.1 Long term (current) use of non-steroidal anti-inflammatories (NSAID); Z79.899 Other long term (current) drug therapy

== ENCOUNTER → 2024-11-22 | Outpatient (CLI) | payer MEDICARE, OTHER ==
[~2024-11-22] MED LIST changes: +BISO1TAB19; +DENO60SY2 SC; +GABA-1172; +HYDR-3713 PO; -PROL60SO SC
== END ==
LOC: M EKG 10:59
PROVIDERS: ATTEND Internal Medicine Cardiovascular Disease
DX: I49.40 Unspecified premature depolarization (principal); I44.0 Atrioventricular block, first degree

== ENCOUNTER → 2024-11-29 | Outpatient (CLI) | payer MEDICARE, OTHER | LOC: M RAD 12:54 | PROVIDERS: ATTEND Internal Medicine Cardiovascular Disease | DX: R09.89 Other specified symptoms and signs involving the circulatory and respiratory systems (principal) ==

== ENCOUNTER 2024-12-28 21:51 | Observation (INO) | payer MEDICARE, OTHER ==
[~2024-12-28] VITALS: Ht 157.5 cm; Wt 90.0 kg
[~2024-12-28 21:51] MED LIST changes: -BISO1TAB19
[2024-12-28] MEDS: MORPHINE 4 MG/ML 1ML VIAL IV PRN (23:36)
[2024-12-28] MEDS: ONDANSETRON 4MG 2ML VIAL IV ONE (23:36)
[2024-12-29 00:18] LABS: BLOOD UREA NITROGEN 14 MG/DL (9-23); CALCIUM LEVEL 8.7 MG/DL (8.3-10.6); CARBON DIOXIDE LEVEL 27 MMOL/L (20-31); CHLORIDE LEVEL 106 MMOL/L (98-107); CPK CREATINE PHOSPHOKINASE 95 U/L (34-145); CREATININE FOR GFR 0.66 MG/DL (0.55-1.30); GLOMERULAR FILTRATION RATE > 90.0 (>39); GLUCOSE, FASTING 214 MG/DL (74-106); SODIUM LEVEL 144 MMOL/L (136-145)
[2024-12-29 00:23] LABS: BASO # 0.1 10^3/uL (0.0-0.2); BASO % 0.4 % (0.0-1.0); EOS # 0.1 10^3/uL (0.0-0.5); EOS % 0.4 % (0.0-3.0); HEMATOCRIT 38.7 % (36.0-47.0); HEMOGLOBIN 12.9 g/dl (12.0-15.5); LYMPH # 1.6 10^3/uL (1.5-5.0); LYMPH % 9.2 % (24.0-44.0); MEAN CORPUSCULAR HGB CONC 33.3 g/dl (32.0-36.5); MONO # 1.2 10^3/uL (0.0-0.8); MONO % 7.4 % (2.0-8.0); NEUTROPHILS # 13.8 10^3/uL (1.5-8.5); NEUTROPHILS % 81.9 % (36.0-66.0); PLATELET COUNT, AUTOMATED 258 10^3/uL (150-450); RED BLOOD COUNT 3.91 10^6/uL (4.00-5.40); WHITE BLOOD COUNT 16.9 10^3/uL (4.0-10.0)
[2024-12-29] MEDS: HYDROMORPHONE HCL 0.5 MG/ 0.5 ML SYRINGE IV PRN ×2 (01:30→04:27)
[2024-12-29] MEDS ORDERED: GABA-284 PO ×2 (02:23)
[2024-12-29] MEDS ORDERED: SEMA0.257 SC (02:23)
[2024-12-29] MEDS ORDERED: CENT1TAB PO (02:23)
[2024-12-29] MEDS ORDERED: CHOL25TA8 PO (02:23)
[2024-12-29] MEDS ORDERED: HOME MED LIST COMPLETE! XX SCH (02:25)
[2024-12-29] MEDS ORDERED: ACETAMINOPHEN 325 MG TAB PO PRN (04:30)
[2024-12-29] MEDS ORDERED: ONDANSETRON 4MG 2ML VIAL IV PRN (04:30)
[2024-12-29] MEDS ORDERED: ceFAZolin SODIUM 2 GM in DEXTROSE 5% (D5W) ADV/MINI-BAG 50 ML IV ONE (04:30)
[2024-12-29] MEDS ORDERED: ACETAMINOPH W/CODEINE #3 TAB UD PO PRN (04:30)
[2024-12-29] MEDS ORDERED: MORPHINE 2 MG/ML 1ML VIAL IV PRN (04:30)
[2024-12-29 05:26] LABS: BASO # 0.1 10^3/uL (0.0-0.2); BASO % 0.4 % (0.0-1.0); EOS # 0.1 10^3/uL (0.0-0.5); EOS % 0.4 % (0.0-3.0); HEMATOCRIT 38.3 % (36.0-47.0); LYMPH # 1.5 10^3/uL (1.5-5.0); LYMPH % 12.3 % (24.0-44.0); MEAN CORPUSCULAR HEMOGLOBIN 33.2 pg (27.0-33.0); MEAN CORPUSCULAR HGB CONC 33.9 g/dl (32.0-36.5); MEAN CORPUSCULAR VOLUME 97.7 fl (80.0-96.0); MONO # 1.4 10^3/uL (0.0-0.8); MONO % 11.1 % (2.0-8.0); NEUTROPHILS # 9.4 10^3/uL (1.5-8.5); NEUTROPHILS % 75.3 % (36.0-66.0); PLATELET COUNT, AUTOMATED 271 10^3/uL (150-450); RED BLOOD COUNT 3.92 10^6/uL (4.00-5.40); WHITE BLOOD COUNT 12.4 10^3/uL (4.0-10.0)
[2024-12-29] MEDS: LR 1,000 ML IV SCH (05:29)
[2024-12-29 05:49] LABS: CALCIUM LEVEL 8.9 MG/DL (8.3-10.6); CREATININE FOR GFR 0.72 MG/DL (0.55-1.30); GLOMERULAR FILTRATION RATE 86.6 (>39); POTASSIUM SERUM 4.7 MMOL/L (3.5-5.1)
[2024-12-29 08:24] LABS: INR 1.07; PARTIAL THROMBOPLASTIN TIME 31.1 SECONDS (24.8-34.2); PROTHROMBIN TIME 14.2 SECONDS (12.5-14.5)
[2024-12-29] MEDS: NORCO, ANEXSIA 5/325MG TABLET (HYDROcodone/ACETAMINOPHEN) PO PRN ×2 (08:57→22:10)
[2024-12-29] MEDS: SENOKOT S TAB PO SCH (08:57)
[2024-12-29] MEDS: ENOXAPARIN 40MG/0.4ML SYRINGE (J1650 PER 10MG) SC SCH (08:57)
[2024-12-29] MEDS ORDERED: DOCUSATE SODIUM 100MG CAPSULE PO SCH (09:00)
[2024-12-29 11:30] VITALS: BP 114/97; TEMP 97.7; O2SAT 98
[2024-12-29] MEDS: MORPHINE 2 MG/ML 1ML VIAL IV PRN (11:46)
[2024-12-29] MEDS ORDERED: GLUCAGON INJ 1MG VIAL SC PRN (12:05)
[2024-12-29] MEDS ORDERED: DEXTROSE 50% 50ML SYRINGE IV PRN (12:05)
[2024-12-29] MEDS ORDERED: INSULIN LISPRO (NovoLOG) PER UNIT SC SCH (12:05)
[2024-12-29] MEDS ORDERED: GLUCOSE 4 GM CHEW PO PRN (12:05)
[2024-12-29] MEDS ORDERED: HUMA75IN2 SC (13:26)
[2024-12-29] MEDS: LEVOTHYROXINE 100MCG TABLET (0.1MG) PO SCH (13:28)
[2024-12-29] MEDS: MULTIVITAMINS/MINERALS THERAP 1 TAB PO SCH (14:17)
[2024-12-29] MEDS: GABAPENTIN 400MG CAP PO SCH ×2 (14:17→22:07)
[2024-12-29] MEDS: DAPAGLIFLOZIN PROPANEDIOL 10MG TABLET (FARXIGA) PO SCH (14:17)
[2024-12-29] MEDS: POTASSIUM CHLORIDE 10MEQ SR TABLET PO SCH (14:19)
[2024-12-29] MEDS: HumaLOG 75/25 MIX INSULIN PER UNIT SC SCH (18:00)
[2024-12-29 19:53] VITALS: BP 128/60; TEMP 97.7; O2SAT 95; O2SAT 98
[2024-12-29] MEDS: OMEPRAZOLE 20MG CAP PO SCH (22:06)
[2024-12-29] MEDS: ATORVASTATIN 20 MG TAB PO SCH (22:07)
[2024-12-29 23:47] VITALS: BP 113/61; TEMP 98.1; O2SAT 95
[2024-12-30] VITALS (7 sets, daily range): BP systolic 112–118; BP diastolic 61–62; TEMP 97.7–97.9; O2SAT 86–95
[2024-12-30 05:38] LABS: BASO # 0.1 10^3/uL (0.0-0.2); BASO % 0.6 % (0.0-1.0); EOS # 0.2 10^3/uL (0.0-0.5); EOS % 2.1 % (0.0-3.0); HEMOGLOBIN 11.2 g/dl (12.0-15.5); LYMPH # 2.1 10^3/uL (1.5-5.0); MEAN CORPUSCULAR HEMOGLOBIN 32.6 pg (27.0-33.0); MEAN CORPUSCULAR HGB CONC 32.9 g/dl (32.0-36.5); MEAN CORPUSCULAR VOLUME 98.8 fl (80.0-96.0); MONO # 1.1 10^3/uL (0.0-0.8); MONO % 11.8 % (2.0-8.0); NEUTROPHILS # 5.6 10^3/uL (1.5-8.5); NEUTROPHILS % 62.2 % (36.0-66.0); PLATELET COUNT, AUTOMATED 209 10^3/uL (150-450); RED BLOOD COUNT 3.44 10^6/uL (4.00-5.40)
[2024-12-30] MEDS ORDERED: D5W/0.45% SODIUM CHLORIDE 1,000 ML IV SCH (05:45)
[2024-12-30] MEDS ORDERED: KETOROLAC 30 MG/ML 1ML VIAL IV ONE (05:50)
[2024-12-30] MEDS ORDERED: HYDROMORPHONE HCL 0.5 MG/ 0.5 ML SYRINGE IV PRN ×2 (05:50)
[2024-12-30] MEDS: MORPHINE 4 MG/ML 1ML VIAL IV ONE (06:00)
[2024-12-30 06:26] LABS: CALCIUM LEVEL 8.3 MG/DL (8.3-10.6); CREATININE FOR GFR 0.8 MG/DL (0.55-1.30); GLOMERULAR FILTRATION RATE 76.3 (>39); POTASSIUM SERUM 4.8 MMOL/L (3.5-5.1)
[2024-12-30] MEDS ORDERED: NALOXONE INJ 0.4MG/1ML VIAL IV PRN (08:20)
[2024-12-30] MEDS ORDERED: MORPHINE 4 MG/ML 1ML VIAL IV PRN (08:20)
[2024-12-30] MEDS ORDERED: MIRALAX *UNIT DOSE* 17GM PACKET PO PRN (08:20)
[2024-12-30] MEDS ORDERED: MOM 30ML SUSPENSION UDC PO PRN (08:20)
[2024-12-30] MEDS ORDERED: ANEXSIA, NORCO 7.5MG/325MG TABLET(HYDROCODONE/APAP) PO PRN ×2 (08:20)
[2024-12-30] MEDS ORDERED: SENOKOT S TAB PO PRN (08:20)
[2024-12-30] MEDS: ANEXSIA, NORCO 7.5MG/325MG TABLET(HYDROCODONE/APAP) PO ONE (08:28)
[2024-12-30] MEDS ORDERED: traMADol 50 MG TAB PO PRN (10:45)
[2024-12-30] MEDS: traMADol 50 MG TAB PO ONE (11:48)
[2024-12-30] MEDS ORDERED: ACET-683 PO (13:15)
[2024-12-30] MEDS ORDERED: TRAM50TA2 PO ×2 (13:15)
[2024-12-30] MEDS: NEOSPORIN TOP OINT 15GM TOP SCH (14:17)
[2024-12-30] MEDS: ACETAMINOPHEN 500 MG TAB PO SCH (14:17)
[2024-12-30] MEDS: traMADol 50 MG TAB PO PRN (14:44)
[2025-01-05] MEDS ORDERED: TRAM50TA2 PO (13:40)
[2025-01-05] MEDS ORDERED: DOCU8.6T PO (13:40)
== END 2024-12-30 16:49 ==
LOC: M ED 21:51 → M ED INP 12-29 04:24 → INTOOBSV 12-29 04:24 → M MSPAV 12-29 11:07
PROVIDERS: ADMIT Student in an Organized Health Care Education/Training Program; ATTEND General Practice
DX: S42.351A Displaced comminuted fracture of shaft of humerus, right arm, initial encounter for closed fracture (principal); W01.198A Fall on same level from slipping, tripping and stumbling with subsequent striking against other object, initial encounter; Y92.018 Other place in single-family (private) house as the place of occurrence of the external cause; Y93.9 Activity, unspecified; Y99.9 Unspecified external cause status; D72.829 Elevated white blood cell count, unspecified; I10 Essential (primary) hypertension; E11.9 Type 2 diabetes mellitus without complications; M19.90 Unspecified osteoarthritis, unspecified site; E78.00 Pure hypercholesterolemia, unspecified; Z87.81 Personal history of (healed) traumatic fracture; M50.322 Other cervical disc degeneration at C5-C6 level; M50.323 Other cervical disc degeneration at C6-C7 level; E66.812 Obesity, class 2; Z68.36 Body mass index [BMI] 36.0-36.9, adult; Z84.1 Family history of disorders of kidney and ureter; Z80.0 Family history of malignant neoplasm of digestive organs; Z88.0 Allergy status to penicillin; Z88.8 Allergy status to other drugs, medicaments and biological substances; Z91.013 Allergy to seafood; Z79.899 Other long term (current) drug therapy; Z79.890 Hormone replacement therapy

== ENCOUNTER → 2025-01-16 | Outpatient (REF) | payer MEDICARE, OTHER ==
[~2025-01-16] MED LIST changes: +ACET-683 PO; +AMLO-751 PO; -AMLO10TA PO; +CENT1TAB PO; +CHOL25TA8 PO; +DOCU8.6T PO; +GABA-284 PO; +HUMA75IN2 SC; +OXYC1SOL3 PO; +SEMA0.257 SC; +TRAM50TA2 PO
== END ==
LOC: M RAD 13:06 → EDSTATUS 01-18 08:53
PROVIDERS: ATTEND Internal Medicine
DX: S42.351D Displaced comminuted fracture of shaft of humerus, right arm, subsequent encounter for fracture with routine healing (principal)

== ENCOUNTER → 2025-01-17 | Outpatient (REF) | payer MEDICARE, OTHER | LOC: M SOG 09:45 → EDSTATUS 01-18 08:56 | PROVIDERS: ATTEND Physician Assistant | DX: S42.301A Unspecified fracture of shaft of humerus, right arm, initial encounter for closed fracture (principal); Z53.9 Procedure and treatment not carried out, unspecified reason ==

== ENCOUNTER → 2025-01-24 | Outpatient (REF) ==
[2025-01-24 16:19] LABS: HEMATOCRIT 37.8 % (36.0-47.0); HEMOGLOBIN 12.1 g/dl (12.0-15.5); MEAN CORPUSCULAR HEMOGLOBIN 33.2 pg (27.0-33.0); MEAN CORPUSCULAR VOLUME 103.6 fl (80.0-96.0); PLATELET COUNT, AUTOMATED 269 10^3/uL (150-450); RED BLOOD COUNT 3.65 10^6/uL (4.00-5.40); WHITE BLOOD COUNT 8.4 10^3/uL (4.0-10.0)
[2025-01-24 16:32] LABS: ALBUMIN 3.5 G/DL (3.2-5.2); CALCIUM LEVEL 9.2 MG/DL (8.3-10.6); CREATININE FOR GFR 0.79 MG/DL (0.55-1.30); GLOMERULAR FILTRATION RATE 77.5 (>39); POTASSIUM SERUM 4.1 MMOL/L (3.5-5.1); TOTAL PROTEIN 6.4 G/DL (5.7-8.2)
== END ==
LOC: SKLAB2 09:14
PROVIDERS: ATTEND Internal Medicine
DX: I10 Essential (primary) hypertension (principal)

== ENCOUNTER → 2025-01-26 | Outpatient (REF) | LOC: M RAD 10:46 | PROVIDERS: ATTEND Nurse Practitioner Family | DX: S42.351A Displaced comminuted fracture of shaft of humerus, right arm, initial encounter for closed fracture (principal); W19.XXXA Unspecified fall, initial encounter ==

== ENCOUNTER → 2025-01-31 | Outpatient (REF) ==
[2025-01-31 16:33] LABS: HEMATOCRIT 36.4 % (36.0-47.0); HEMOGLOBIN 11.7 g/dl (12.0-15.5); MEAN CORPUSCULAR HEMOGLOBIN 33.4 pg (27.0-33.0); MEAN CORPUSCULAR HGB CONC 32.1 g/dl (32.0-36.5); PLATELET COUNT, AUTOMATED 256 10^3/uL (150-450); WHITE BLOOD COUNT 8.7 10^3/uL (4.0-10.0)
[2025-01-31 16:57] LABS: ALBUMIN 3.3 G/DL (3.2-5.2); ALKALINE PHOSPHATASE 103 U/L (35-104); ALT/SGPT 15 U/L (7.0-40); AST/SGOT 19 U/L (<34); BILIRUBIN,TOTAL 0.7 MG/DL (0.3-1.2); BLOOD UREA NITROGEN 16 MG/DL (9-23); CARBON DIOXIDE LEVEL 27 MMOL/L (20-31); CHLORIDE LEVEL 107 MMOL/L (98-107); CREATININE FOR GFR 0.63 MG/DL (0.55-1.30); GLOMERULAR FILTRATION RATE > 90.0 (>39); GLUCOSE, FASTING 129 MG/DL (74-106); POTASSIUM SERUM 4.1 MMOL/L (3.5-5.1); SODIUM LEVEL 144 MMOL/L (136-145)
== END ==
LOC: SKLAB2 16:00
PROVIDERS: ATTEND Internal Medicine
DX: I10 Essential (primary) hypertension (principal)

== ENCOUNTER 2025-04-05 17:02 | Inpatient (IN) | payer MEDICARE, OTHER ==
[~2025-04-05] VITALS: Ht 160 cm; Wt 83.3 kg
[2025-04-05 18:30] LABS: BASO # 0.0 10^3/uL (0.0-0.2); BASO % 0.5 % (0.0-1.0); EOS # 0.1 10^3/uL (0.0-0.5); EOS % 2.1 % (0.0-3.0); LYMPH # 1.3 10^3/uL (1.5-5.0); LYMPH % 20.3 % (24.0-44.0); MONO # 0.8 10^3/uL (0.0-0.8); MONO % 12.3 % (2.0-8.0); NEUTROPHILS # 4.0 10^3/uL (1.5-8.5); NEUTROPHILS % 64.3 % (36.0-66.0); PLATELET COUNT, AUTOMATED 243 10^3/uL (150-450)
[2025-04-05 18:38] LABS: ERYTHROCYTE SEDIMENTATION RATE 27 mm/hr (0-30)
[2025-04-05 18:53] LABS: ALT/SGPT 17 U/L (7.0-40); AST/SGOT 21 U/L (<34); C REACTIVE PROTEIN QUANTITATIV < 0.50 MG/DL (<1.0); CALCIUM LEVEL 8.6 MG/DL (8.3-10.6); CARBON DIOXIDE LEVEL 29 MMOL/L (20-31); CHLORIDE LEVEL 105 MMOL/L (98-107); CPK CREATINE PHOSPHOKINASE 35 U/L (34-145); CREATININE FOR GFR 0.63 MG/DL (0.55-1.30); GLOMERULAR FILTRATION RATE > 90.0 (>39); POTASSIUM SERUM 3.8 MMOL/L (3.5-5.1); SODIUM LEVEL 143 MMOL/L (136-145)
[2025-04-05 18:54] LABS: CK-MB VALUE MASS 1.1 NG/ML (<3.6); MB/CK RELATIVE INDEX 3.14 (< OR =4)
[2025-04-05] MEDS: FUROSEMIDE 40 MG TAB PO ONE (20:07)
[2025-04-05] MEDS ORDERED: NYST1POW3 TOP (21:30)
[2025-04-05] MEDS ORDERED: DOCU100C16 PO (21:30)
[2025-04-05] MEDS ORDERED: HYDR2.5C54 TOP (21:30)
[2025-04-05] MEDS ORDERED: HOME MED LIST COMPLETE! XX SCH (21:35)
[2025-04-06] MEDS ORDERED: GLUCAGON INJ 1 MG VIAL SC PRN (00:30)
[2025-04-06] MEDS ORDERED: DEXTROSE 50% 50 ML SYRINGE IV PRN (00:30)
[2025-04-06] MEDS ORDERED: SENNOSIDES/DOCUSATE SODIUM 8.6 MG/50MG TAB PO PRN (00:30)
[2025-04-06] MEDS ORDERED: GLUCOSE 4 GM CHEW PO PRN (00:30)
[2025-04-06] MEDS: OMEPRAZOLE 20MG CAP PO SCH (00:55)
[2025-04-06] MEDS: ENOXAPARIN 100 MG/1 ML SYRINGE (J1650 PER 10MG) SC ONE (00:55)
[2025-04-06] MEDS: GABAPENTIN 400 MG CAP PO SCH (00:55)
[2025-04-06 01:30] VITALS: BP 134/55; TEMP 97.3; O2SAT 96
[2025-04-06 04:05] VITALS: BP 119/55; TEMP 97.3; O2SAT 97
[2025-04-06] MEDS: LEVOTHYROXINE 100 MCG TABLET (0.1 MG) PO SCH (05:32)
[2025-04-06] MEDS: INSULIN LISPRO (NovoLOG) PER UNIT SC SCH ×2 (07:30→21:00)
[2025-04-06 08:08] LABS: PLATELET COUNT, AUTOMATED 236 10^3/uL (150-450)
[2025-04-06 08:35] LABS: ALT/SGPT 17 U/L (7.0-40); AST/SGOT 20 U/L (<34); CALCIUM LEVEL 8.5 MG/DL (8.3-10.6); CARBON DIOXIDE LEVEL 33 MMOL/L (20-31); CHLORIDE LEVEL 102 MMOL/L (98-107); CREATININE FOR GFR 0.64 MG/DL (0.55-1.30); GLOMERULAR FILTRATION RATE > 90.0 (>39); MAGNESIUM LEVEL 2.0 MG/DL (1.8-2.4); POTASSIUM SERUM 3.5 MMOL/L (3.5-5.1); SODIUM LEVEL 144 MMOL/L (136-145)
[2025-04-06 09:20] LABS: INR 1.13
[2025-04-06] MEDS: FUROSEMIDE 20 MG TAB PO SCH (09:40)
[2025-04-06] MEDS: amLODIPine 10 MG TAB PO SCH (09:44)
[2025-04-06] MEDS: DOCUSATE SODIUM 100 MG CAPSULE PO SCH (09:44)
[2025-04-06] MEDS: ENOXAPARIN 100 MG/1 ML SYRINGE (J1650 PER 10MG) SC SCH (11:15)
[2025-04-06 12:00] VITALS: BP 101/56; TEMP 97.5; O2SAT 95
[2025-04-06 19:33] VITALS: BP 112/58; TEMP 97.3; O2SAT 94
[2025-04-06 20:00] VITALS: BP 111/58; TEMP 97.5; O2SAT 95
[2025-04-06] MEDS: ATORVASTATIN 20 MG TAB PO SCH (21:20)
[2025-04-07 04:11] VITALS: BP 111/58; TEMP 98.1; O2SAT 96
[2025-04-07 06:30] LABS: BASO # 0.0 10^3/uL (0.0-0.2); BASO % 0.4 % (0.0-1.0); EOS # 0.1 10^3/uL (0.0-0.5); EOS % 2.0 % (0.0-3.0); LYMPH # 1.5 10^3/uL (1.5-5.0); LYMPH % 21.5 % (24.0-44.0); MONO # 0.8 10^3/uL (0.0-0.8); MONO % 10.9 % (2.0-8.0); NEUTROPHILS # 4.5 10^3/uL (1.5-8.5); NEUTROPHILS % 64.8 % (36.0-66.0); PLATELET COUNT, AUTOMATED 222 10^3/uL (150-450)
[2025-04-07 06:47] LABS: CALCIUM LEVEL 8.0 MG/DL (8.3-10.6); CARBON DIOXIDE LEVEL 29.0 MMOL/L (20-31); CHLORIDE LEVEL 103.0 MMOL/L (98-107); CREATININE FOR GFR 0.77 MG/DL (0.55-1.30); GLOMERULAR FILTRATION RATE 79.9 (>39); MAGNESIUM LEVEL 1.9 MG/DL (1.8-2.4); POTASSIUM SERUM 3.6 MMOL/L (3.5-5.1); SODIUM LEVEL 145.0 MMOL/L (136-145)
[2025-04-07 08:08] VITALS: BP 105/56
[2025-04-07] MEDS ORDERED: ENOX100I3 SC (10:10)
[2025-04-07 12:00] VITALS: BP 118/58; TEMP 97.6; O2SAT 95
== END 2025-04-07 14:17 | disposition home health service (06) | DRG 301 ==
LOC: M ED 17:02 → M ED INP 04-06 00:08 → M MS5PR 04-06 01:15
PROVIDERS: ADMIT Student in an Organized Health Care Education/Training Program; ATTEND Student in an Organized Health Care Education/Training Program
DX: I82.431 Acute embolism and thrombosis of right popliteal vein (principal); I82.411 Acute embolism and thrombosis of right femoral vein; E11.40 Type 2 diabetes mellitus with diabetic neuropathy, unspecified; I10 Essential (primary) hypertension; E78.5 Hyperlipidemia, unspecified; M19.90 Unspecified osteoarthritis, unspecified site; M79.89 Other specified soft tissue disorders; R60.0 Localized edema; E11.51 Type 2 diabetes mellitus with diabetic peripheral angiopathy without gangrene; I87.2 Venous insufficiency (chronic) (peripheral); E03.9 Hypothyroidism, unspecified; E87.70 Fluid overload, unspecified; K21.9 Gastro-esophageal reflux disease without esophagitis; D64.9 Anemia, unspecified; K59.00 Constipation, unspecified; S42.301D Unspecified fracture of shaft of humerus, right arm, subsequent encounter for fracture with routine healing; Z96.641 Presence of right artificial hip joint; Z79.4 Long term (current) use of insulin; Z79.890 Hormone replacement therapy; Z79.899 Other long term (current) drug therapy; Z88.0 Allergy status to penicillin; Z88.6 Allergy status to analgesic agent; Z98.49 Cataract extraction status, unspecified eye; Z87.891 Personal history of nicotine dependence

== ENCOUNTER → 2025-04-12 | Outpatient (CLI) | payer MEDICARE, OTHER ==
[~2025-04-12] MED LIST changes: +DOCU100C16 PO; +ENOX100I3 SC; +HYDR2.5C54 TOP; +NYST1POW3 TOP
== END ==
LOC: M RAD 11:34
PROVIDERS: ATTEND Radiology Diagnostic Radiology
DX: Z86.718 Personal history of other venous thrombosis and embolism (principal)

== ENCOUNTER → 2025-04-24 | Outpatient (POV) | payer MEDICARE, OTHER ==
[~2025-04-24] VITALS: Ht 167.6 cm; Wt 81.8 kg
[2025-04-24 10:11] VITALS: BP 112/56; O2SAT 97
== END ==
LOC: M IRPOV 09:59
PROVIDERS: ATTEND Registered Nurse School
DX: I82.401 Acute embolism and thrombosis of unspecified deep veins of right lower extremity (principal); Z79.01 Long term (current) use of anticoagulants; Z88.0 Allergy status to penicillin; Z88.6 Allergy status to analgesic agent

== ENCOUNTER 2025-04-27 11:46 | Emergency (ER) | payer MEDICARE, OTHER ==
[~2025-04-27] VITALS: Ht 162.6 cm; Wt 85.1 kg
[2025-04-27 12:10] VITALS: TEMP 97.4
[2025-04-27 14:18] LABS: CALCIUM LEVEL 8.5 MG/DL (8.3-10.6); CARBON DIOXIDE LEVEL 27 MMOL/L (20-31); CHLORIDE LEVEL 108 MMOL/L (98-107); CREATININE FOR GFR 0.65 MG/DL (0.55-1.30); GLOMERULAR FILTRATION RATE > 90.0 (>39); POTASSIUM SERUM 3.7 MMOL/L (3.5-5.1); SODIUM LEVEL 146 MMOL/L (136-145)
[2025-04-27 14:21] LABS: BASO # 0.0 10^3/uL (0.0-0.2); BASO % 0.5 % (0.0-1.0); EOS # 0.1 10^3/uL (0.0-0.5); EOS % 1.2 % (0.0-3.0); LYMPH # 2.1 10^3/uL (1.5-5.0); LYMPH % 25.6 % (24.0-44.0); MONO # 0.8 10^3/uL (0.0-0.8); MONO % 9.9 % (2.0-8.0); NEUTROPHILS # 5.0 10^3/uL (1.5-8.5); NEUTROPHILS % 61.7 % (36.0-66.0); PLATELET COUNT, AUTOMATED 274 10^3/uL (150-450)
[2025-04-27 14:30] LABS: INR 1.5
[2025-04-27 15:16] VITALS: BP 129/60; O2SAT 94
== END 2025-04-27 15:34 | disposition home or self-care (01) ==
LOC: M ED 11:46 → EDBD 11:46 → M ED 15:34
DX: M50.30 Other cervical disc degeneration, unspecified cervical region (principal); W10.9XXA Fall (on) (from) unspecified stairs and steps, initial encounter; E11.9 Type 2 diabetes mellitus without complications; I10 Essential (primary) hypertension; E78.5 Hyperlipidemia, unspecified; E03.9 Hypothyroidism, unspecified; K21.9 Gastro-esophageal reflux disease without esophagitis; I44.0 Atrioventricular block, first degree; I44.4 Left anterior fascicular block; Z79.4 Long term (current) use of insulin; Z79.899 Other long term (current) drug therapy; Z79.810 Long term (current) use of selective estrogen receptor modulators (SERMs); Z88.0 Allergy status to penicillin; Z88.5 Allergy status to narcotic agent; Z87.891 Personal history of nicotine dependence; S42.301D Unspecified fracture of shaft of humerus, right arm, subsequent encounter for fracture with routine healing

== ENCOUNTER → 2025-04-27 | Outpatient (CLI) | payer MEDICARE, OTHER | LOC: M SOG 06:50 | PROVIDERS: ATTEND Physician Assistant | DX: S42.301D Unspecified fracture of shaft of humerus, right arm, subsequent encounter for fracture with routine healing (principal) ==

== ENCOUNTER → 2025-06-15 | Outpatient (CLI) | payer MEDICARE, OTHER | LOC: M SOG 07:25 | PROVIDERS: ATTEND Physician Assistant | DX: S42.301D Unspecified fracture of shaft of humerus, right arm, subsequent encounter for fracture with routine healing (principal) ==

== ENCOUNTER → 2025-06-22 | Outpatient (CLI) | payer MEDICARE, OTHER | LOC: M WHC 14:33 | PROVIDERS: ATTEND Family Medicine | DX: Z12.31 Encounter for screening mammogram for malignant neoplasm of breast (principal); R92.313 Mammographic fatty tissue density, bilateral breasts ==

== ENCOUNTER → 2025-07-03 | Outpatient (POV) | payer MEDICARE, OTHER | LOC: M IRPOV 10:07 | PROVIDERS: ATTEND Registered Nurse School | DX: Z09 Encounter for follow-up examination after completed treatment for conditions other than malignant neoplasm (principal); I10 Essential (primary) hypertension; Z86.718 Personal history of other venous thrombosis and embolism; Z79.01 Long term (current) use of anticoagulants; Z88.0 Allergy status to penicillin; Z88.6 Allergy status to analgesic agent; Z87.81 Personal history of (healed) traumatic fracture ==

== ENCOUNTER → 2025-08-22 | Outpatient (CLI) | payer MEDICARE, OTHER ==
[~2025-08-22] MED LIST changes: -DOCU8.6T PO; +SENN-208 PO
== END ==
LOC: M CARPUL 14:13
PROVIDERS: ATTEND Physician Assistant
DX: I49.3 Ventricular premature depolarization (principal); R94.31 Abnormal electrocardiogram [ECG] [EKG]; M25.569 Pain in unspecified knee